=== PATIENT | male | born 1940 | race Caucasian/White ===

== ENCOUNTER 2017-04-05 11:59 | Inpatient (IN) | payer MEDICARE, MEDICAID ==
--- NOTE | 2017-04-05 12:23 | ED Physician Chart ---
ED Chief Complaint/HPI - Patient Information Date Seen:: 04/05/17 Time Seen:: 12:05 Chief Complaint:: lethargy and weakness History of Present Illness:: Patient sent from the detention for generalized weakness and lethargy of an unspecified length of time. Patient denies any problems at present. Patient did not receive his dialysis today. Allergies:: Allergies Allergy/AdvReac Type Severity Reaction Status Date / Time morphine Allergy Verified 04/05/17 12:17 Penicillins [PCN] Allergy Verified 04/05/17 12:17 Historian:: Patient, EMS Review:: Nurse's Note Reviewed ED Review of Systems - Review of Systems General/Constitutional: No fever, No chills Skin: Skin lesions Head: Headache Eyes: No loss of vision ENT: No earache Neck: No neck pain Cardio Vascular: No chest pain Pulmonary: No SOB GI: No nausea, No vomiting, No diarrhea G/U: Other Musculoskeletal: No bone or joint pain (this does not produce urine) Psychiatric: No prior psych history Hematopoietic: No bruising Allergic/Immuno: No urticaria Neurological: No syncope, No focal symptoms ED Past Medical History - Past Medical History Past Medical History: HTN, DM, Thyroid disorder, Other (status post sepsis; ) Family History: None Social History: Non Smoker, No Alcohol, No Drug Use Surgical History: other (bilateral knees and bilateral shoulders) Psychiatricy History: None Medication: Reviewed Family Medical History - Family Member Mother History Unknown: Yes ED Physical Exam - Physical Examination Other Gen/Cons comments:: Chronically ill-appearing; alert and oriented to the correct year and a significant recent current event: the state of the [place] address Head: Atraumatic Eyes: Lids, conjuctiva normal, PERRL Skin: Nl inspection ENMT: External ears, nose nl Other ENMT comments:: Poor dental hygiene Neck: No nuchal rigidity Respiratory: Nl effort/Exclusion, Clear to Auscultation Cardio Vascular: RRR, No murmur, gallop, rubs, NL S1 S2 GI: No tenderness/rebounding/guarding, No organomegaly : No CVA tenderness Extremities: Normal digits & nails Neuro/Psych: No focal deficits ED Labs/Radiology/EKG Results - Lab Results Results: Laboratory Results - last 24 hr 04/05/17 04/05/17 12:40 12:40 WBC 8.1 RBC 2.09 L Hgb 6.4 L* Hct 19.8 L* MCV 94.7 MCH 30.6 MCHC Differential 32.4 RDW 15.3 Plt Count 320 MPV 8.5 Neutrophils % 69.5 Lymphocytes % 20.4 Monocytes % 8.5 Eosinophils % 1.2 Basophils % 0.4 Sodium 134 L Potassium 4.7 Chloride 93 L Carbon Dioxide 27.1 Anion Gap 18.6 H BUN 78 H Creatinine 6.8 H* Est GFR ( Amer) TNP Est GFR (Non-Af Amer) TNP BUN/Creatinine Ratio 11.5 Glucose 119 H Calcium 9.3 Total Bilirubin 0.2 L AST 16 ALT 10 Alkaline Phosphatase 44 Total Protein 6.8 Albumin 3.2 L Globulin 3.6 Albumin/Globulin Ratio 0.9 L - Radiology Results Results: Chest x-ray showed normal size heart with calcification of the aortic arch and atelectasis right base. - EKG Interpretations Rate & Rhythm: normal sinus rhythm rate of 52 [place]: normal ED Septic Shock - . Is Septic Shock (SBP<90, OR Lactate>4 mmol\L) present?: No ED Reassessment (Disposition) - Reassessment Reassessment Condition:: Unchanged - Diagnosis Diagnosis:: Anemia; renal failure on dialysis; - Patient Disposition Admitted to:: Med/Surg Spoke to:: Dr. Ngo Admitting Medical Physician:: Dr. Ngo Condition at Disposition:: Stable, Unchanged
--- NOTE | 2017-04-05 12:39 | Diagnostic Imaging Report ---
Portable chest x-ray HISTORY: Shortness of breath The heart appears enlarged. No focal pulmonary processes. Atherosclerotic calcification seen in a tortuous thoracic aorta. Surgical changes noted about both shoulders. IMPRESSION: 1. No acute focal pulmonary processes 2. Cardiomegaly with atherosclerotic vascular changes
[2017-04-05 12:54] LABS: % BASOPHILS 0.4 % (0.0-2.0); % EOSINOPHILS 1.2 % (0.0-5.0); % LYMPHOCYTES 20.4 % (20.0-50.0); % MONOCYTES 8.5 % (2.0-10.0); % NEUTROPHILS 69.5 % (40.0-80.0); EOSINOPHILE ABSOLUTE 0.1 Th/cmm (0.1-0.4); LYMPHOCYTE ABSOLUTE 1.7 Th/cmm (1.5-3.0); MEAN CELL VOLUME 94.7 fl (80-99); MEAN CORPUSCULAR HEMOGLOBIN 30.6 pg (27.0-31.0); MEAN CORPUSCULAR HGB CONC 32.4 pg (28.0-36.0); MEAN PLATELET VOLUME 8.5 fl; MONOCYTE ABSOLUTE 0.7 Th/cmm (0.3-1.0); NEUTROPHILE ABSOLUTE 5.6 Th/cmm (1.8-8.0); PLATELET COUNT 320 Th/cmm (150-400); RED BLOOD COUNT 2.09 Mil/cmm (3.80-5.80); RED CELL DISTRIBUTION WIDTH 15.3 % (11.5-20.0); WHITE BLOOD COUNT 8.1 Th/cmm (4.8-10.8)
[2017-04-05 12:55] LABS: HEMATOCRIT 19.8 % (41.0-60); HEMOGLOBIN 6.4 gm/dL (12-16)
[2017-04-05 13:00] LABS: ALB/GLOB RATIO 0.9 (1.0-1.8); ALBUMIN 3.2 gm/dL (4.2-5.5); ALKALINE PHOSPHATASE 44 U/L (34-104); ANION GAP 18.6 (7.0-16.0); BILIRUBIN,TOTAL 0.2 mg/dL (0.3-1.0); BUN - UREA NITROGEN 78 mg/dL (7-25); CALCIUM SERUM 9.3 mg/dL (8.6-10.3); CARBON DIOXIDE 27.1 mEq/L (21.0-31.0); CHLORIDE 93 mEq/L (98-107); GLUCOSE 119 mg/dL (70-105); POTASSIUM SERUM 4.7 mEq/L (3.5-5.1); SGOT 16 U/L (13-39); SGPT/ALT 10 U/L (7-52); SODIUM SERUM 134 mEq/L (136-145); TOTAL PROTEIN,SERUM 6.8 gm/dL (6.0-8.3)
[2017-04-05 13:17] LABS: CREATININE - SERUM 6.8 mg/dL (0.7-1.3)
[2017-04-05] MEDS ORDERED: Sodium Chloride 0.9% 500 ML IV ONE ×2 (14:43→14:49)
[2017-04-05] MEDS ORDERED: Morphine Sulfate 2 mg/mL 1mL Syr IVP PRN (15:49)
[2017-04-05] MEDS ORDERED: Sodium Chloride 0.9% 1,000 ML IV SCH (15:49)
[2017-04-06] MEDS: INSULIN ASPART SLIDING SCALE 100 UNITS/ML UNIT SUBQ SCH ×5 (00:38→22:35)
[2017-04-06] MEDS ORDERED: Pneumococcal Vaccine 0.5 mL Vial IM ONE (09:00)
--- NOTE | 2017-04-06 10:19 | Consultation ---
Consult Note - Consult Note Service Date: 04/06/17 Consult Note: PHYSICIAN Consultation Note: Date of Admission: 04/05/17 Purpose of Consultation: Chief Complaint: History of Present Illness: Patient JUANIS MONTESINOS was admitted to [facility] Telemetry with SEVER ANEMIA. 76 YR OLD MALE BIB BLS TRANSPORT FROM [facility] WITH C/O LETHARGY , INCREASED WEAKNESS & FALL 2 DAYS AGO. Patient is ESRD on HD three times per week at [facility] in [place] Past Medical History: HTN, DM type 2, Hyperlipidemia, ESRD, Anemia Past Surgical History: Permcath Allergies Allergy/AdvReac Type Severity Reaction Status Date / Time morphine Allergy Verified 04/05/17 12:17 Penicillins [PCN] Allergy Verified 04/05/17 12:17 Vital Signs Temp 97.4 F 04/06/17 04:00 Pulse 71 04/06/17 08:43 Resp 20 04/06/17 04:00 BP 106/58 04/06/17 08:43 Pulse Ox 97 04/06/17 04:00 Intake & Output 04/05/17 04/06/17 04/06/17 18:59 06:59 18:59 Intake Total 240 800 Balance 240 800 Weight (lbs) 108.862 kg 111.584 kg Intake: Oral 240 200 Blood Product 600 Other: # Voids 1 # Bowel Movements 0 Laboratory Results - last 24 hr 04/05/17 04/06/17 04/06/17 16:26 00:32 07:09 POC Glucose 137 H 117 H Blood Type O POSITIVE Antibody Screen NEGATIVE Crossmatch See Detail Home Medication Medication Instructions Recorded Type Acetaminophen [8 Hour] 650 mg PO Q6H PRN 04/05/17 History Acetaminophen [Tylenol] 650 mg PO Q6HR PRN 04/05/17 History Amlodipine Besylate 10 mg PO DAILY 04/05/17 History Ascorbic Acid [Vitamin C] 500 mg PO BID 04/05/17 History Aspirin [Aspirin Chewable] 81 mg PO DAILY 04/05/17 History Atropine 1% Ophth Soln [Isopto 1 drop RIGHT EYE BID 04/05/17 History Atropine 1% Ophth Soln] Bisacodyl 10 mg RC DAILY 04/05/17 History Budesonide [Pulmicort] 0.5 mg IH Q12H 04/05/17 History Calcium Acetate [Phoslo] 2 tab PO TID 04/05/17 History Carvedilol [Coreg] 25 mg PO Q12H 04/05/17 History Darbepoetin Marvin in Polysorbat 60 mcg IV QWED 04/05/17 History [Aranesp] Dextrose 50% [D50w] 50 ml IV Q4H PRN 04/05/17 History Diphenhydramine HCl/Zinc Acet 1 cre TP Q2H PRN 04/05/17 History [Benadryl 1%-0.1%] Ferrous Gluconate 324 mg PO DAILY 04/05/17 History Finasteride [Proscar] 5 mg PO HS 04/05/17 History Folic Acid/Vit Bcomp,C [Renal 0.8 mg PO HS 04/05/17 History Vitamin Tablet] Gabapentin 100 mg PO DAILY 04/05/17 History Heparin Sodium,Porcine [Heparin 5,000 units SQ Q12H 04/05/17 History Sodium] Hydralazine HCl 100 mg PO Q8H 04/05/17 History Insulin Aspart Sliding Scale 0 units SUBQ ACHS 04/05/17 History [NovoLOG INSULIN SLIDING SCALE] Ipratropium/Albuterol Sulfate 1 vial HHN TID PRN 04/05/17 History [Iprat-Albut 0.5-3(2.5) mg/3 ml] Lactulose 22.5 ml PO BID 04/05/17 History Levothyroxine Sodium 150 mcg PO DAILY 04/05/17 History Lidocaine 5% Patch [Lidoderm 5% 1 patch TP DAILY 04/05/17 History Patch] Modafinil 200 mg PO BID 04/05/17 History Nitroglycerin 0.4 mg SL Q5MIN MDD 3 04/05/17 History Ondansetron [Zofran Odt] 4 mg PO Q6H PRN 04/05/17 History Polyethylene Glycol 3350 [Miralax] 17 gm PO DAILY 04/05/17 History Prednisolone 1% Ophth Susp [Pred 1 drop RIGHT EYE Q6H 04/05/17 History Forte 1% Ophth Susp] Psyllium [Metamucil] 1 pkt PO Q8H PRN 04/05/17 History Tramadol HCl [Ultram] 50 mg PO Q4H PRN 04/05/17 History Current Medications Generic Name Dose Route Start Last Admin Trade Name Freq PRN Reason Stop Dose Admin Acetaminophen 650 mg 04/05/17 22:30 Tylenol PO 06/04/17 22:29 Q6H PRN Pain/Fever >100 F Acetaminophen/Hydrocodone Bitart 1 tab 04/05/17 15:49 [place] 10 Mg/325 Mg PO 06/04/17 15:48 Q6H PRN Pain (Moderate) Amlodipine Besylate 10 mg 04/06/17 09:00 04/06/17 08:42 Norvasc PO 06/05/17 08:59 Not Given DAILY NAZIA Carvedilol 25 mg 04/06/17 09:00 04/06/17 08:43 Coreg PO 06/05/17 08:59 Not Given Q12HR NAZIA Hydralazine HCl 100 mg 04/06/17 05:00 04/06/17 06:32 Apresoline PO 06/05/17 04:59 Not Given Q8HR NAZIA Sodium Chloride 1,000 mls @ 20 mls/hr 04/05/17 15:49 Nacl 0.9% IV 06/04/17 15:48 .Q24H NAZIA Insulin Aspart 0 units 04/05/17 22:23 04/06/17 07:11 Novolog Insulin Sliding Scale SUBQ 06/04/17 22:22 Not Given ACHS NAZIA Protocol Morphine Sulfate 2 mg 04/05/17 15:49 Morphine IVP 06/04/17 15:48 Q4HR PRN Pain (Severe) Nitroglycerin 0.4 mg 04/05/17 22:24 Nitrostat SL 06/04/17 22:23 Q5MIN PRN Chest Pain Ondansetron HCl 4 mg 04/05/17 21:16 Zofran IVP 06/04/17 21:15 Q4H PRN Nausea / Vomiting Review of Systems: A 12 point ROS was reviewed with the pertinent positive and negatives noted in the HPI. Social History Smoking Status Unknown if ever smoked Drug Use No Alcohol Use No Family Medical History Family Medical History Start: 04/05/17 15: 26 Freq: ONCE Status: Active Document 04/05/17 15:26 [email or web address] (Rec: 04/05/17 18:45 [email or web address] [id number]) Family Medical History Mother History Unknown Yes Other Medical History PT ALTERED AT THIS TIME, CONFUSED, OFF TOPIC Physical Exam: General: doing well HEENT: PABLO, EOMI Neck: SUPPLE, No JVD Cardio: S1 S2 RRR Respiratory: CTA bilaterally Abdominal: Soft Obese Non tender Extremities: Trace edema Neurological: Alert and oriented x 3 Assessment: ESRD ANEMIA HTN DM type 2 Plan: continue HD support and transfuse blood anemia work up pending Signed, Seth Devine M.D. [id number]
[2017-04-06 10:37] LABS: % BASOPHILS 0.3 % (0.0-2.0); % EOSINOPHILS 1.8 % (0.0-5.0); % MONOCYTES 7.1 % (2.0-10.0); % NEUTROPHILS 75.8 % (40.0-80.0); EOSINOPHILE ABSOLUTE 0.2 Th/cmm (0.1-0.4); HEMATOCRIT 24.8 % (41.0-60); HEMOGLOBIN 8.1 gm/dL (12-16); LYMPHOCYTE ABSOLUTE 1.4 Th/cmm (1.5-3.0); MEAN CELL VOLUME 91.1 fl (80-99); MEAN CORPUSCULAR HEMOGLOBIN 29.6 pg (27.0-31.0); MEAN CORPUSCULAR HGB CONC 32.5 pg (28.0-36.0); MEAN PLATELET VOLUME 8.2 fl; MONOCYTE ABSOLUTE 0.7 Th/cmm (0.3-1.0); NEUTROPHILE ABSOLUTE 6.9 Th/cmm (1.8-8.0); PLATELET COUNT 371 Th/cmm (150-400); RED BLOOD COUNT 2.72 Mil/cmm (3.80-5.80); RED CELL DISTRIBUTION WIDTH 19.6 % (11.5-20.0); WHITE BLOOD COUNT 9.2 Th/cmm (4.8-10.8)
[2017-04-06 11:46] LABS: ANION GAP 17.3 (7.0-16.0); CALCIUM SERUM 8.9 mg/dL (8.6-10.3); CARBON DIOXIDE 28.7 mEq/L (21.0-31.0); CHLORIDE 93 mEq/L (98-107); GLUCOSE 136 mg/dL (70-105); SODIUM SERUM 134 mEq/L (136-145)
--- NOTE | 2017-04-06 12:15 | History and Physical ---
History of Present Illness - HPI Vital Signs: Last Vital Signs Temp 98 F 04/06/17 08:00 Pulse 71 04/06/17 08:43 Resp 16 04/06/17 08:00 BP 106/58 04/06/17 08:43 Pulse Ox 96 04/06/17 08:00 Family Medical History - Family Member Mother History Unknown: Yes Other Medical History: PT ALTERED AT THIS TIME, CONFUSED, OFF TOPIC - Medications Home Medications: Home Medication Medication Instructions Recorded Type Acetaminophen [8 Hour] 650 mg PO Q6H PRN 04/05/17 History Acetaminophen [Tylenol] 650 mg PO Q6HR PRN 04/05/17 History Amlodipine Besylate 10 mg PO DAILY 04/05/17 History Ascorbic Acid [Vitamin C] 500 mg PO BID 04/05/17 History Aspirin [Aspirin Chewable] 81 mg PO DAILY 04/05/17 History Atropine 1% Ophth Soln [Isopto 1 drop RIGHT EYE BID 04/05/17 History Atropine 1% Ophth Soln] Bisacodyl 10 mg RC DAILY 04/05/17 History Budesonide [Pulmicort] 0.5 mg IH Q12H 04/05/17 History Calcium Acetate [Phoslo] 2 tab PO TID 04/05/17 History Carvedilol [Coreg] 25 mg PO Q12H 04/05/17 History Darbepoetin Marvin in Polysorbat 60 mcg IV QWED 04/05/17 History [Aranesp] Dextrose 50% [D50w] 50 ml IV Q4H PRN 04/05/17 History Diphenhydramine HCl/Zinc Acet 1 cre TP Q2H PRN 04/05/17 History [Benadryl 1%-0.1%] Ferrous Gluconate 324 mg PO DAILY 04/05/17 History Finasteride [Proscar] 5 mg PO HS 04/05/17 History Folic Acid/Vit Bcomp,C [Renal 0.8 mg PO HS 04/05/17 History Vitamin Tablet] Gabapentin 100 mg PO DAILY 04/05/17 History Heparin Sodium,Porcine [Heparin 5,000 units SQ Q12H 04/05/17 History Sodium] Hydralazine HCl 100 mg PO Q8H 04/05/17 History Insulin Aspart Sliding Scale 0 units SUBQ ACHS 04/05/17 History [NovoLOG INSULIN SLIDING SCALE] Ipratropium/Albuterol Sulfate 1 vial HHN TID PRN 04/05/17 History [Iprat-Albut 0.5-3(2.5) mg/3 ml] Lactulose 22.5 ml PO BID 04/05/17 History Levothyroxine Sodium 150 mcg PO DAILY 04/05/17 History Lidocaine 5% Patch [Lidoderm 5% 1 patch TP DAILY 04/05/17 History Patch] Modafinil 200 mg PO BID 04/05/17 History Nitroglycerin 0.4 mg SL Q5MIN MDD 3 04/05/17 History Ondansetron [Zofran Odt] 4 mg PO Q6H PRN 04/05/17 History Polyethylene Glycol 3350 [Miralax] 17 gm PO DAILY 04/05/17 History Prednisolone 1% Ophth Susp [Pred 1 drop RIGHT EYE Q6H 04/05/17 History Forte 1% Ophth Susp] Psyllium [Metamucil] 1 pkt PO Q8H PRN 04/05/17 History Tramadol HCl [Ultram] 50 mg PO Q4H PRN 04/05/17 History - Allergies Allergies/Adverse Reactions: Allergies Allergy/AdvReac Type Severity Reaction Status Date / Time morphine Allergy Verified 04/05/17 12:17 Penicillins [PCN] Allergy Verified 04/05/17 12:17 - Lab Results All Lab Results last 24 hours: Laboratory Results - last 24 hr 04/05/17 04/06/17 04/06/17 16:26 00:32 07:09 WBC RBC Hgb Hct MCV MCH MCHC Differential RDW Plt Count MPV Neutrophils % Lymphocytes % Monocytes % Eosinophils % Basophils % POC Glucose 137 H 117 H Blood Type O POSITIVE Antibody Screen NEGATIVE Crossmatch See Detail 04/06/17 10:30 WBC 9.2 RBC 2.72 L Hgb 8.1 L Hct 24.8 L MCV 91.1 MCH 29.6 MCHC Differential 32.5 RDW 19.6 Plt Count 371 MPV 8.2 Neutrophils % 75.8 Lymphocytes % 15.0 L Monocytes % 7.1 Eosinophils % 1.8 Basophils % 0.3 POC Glucose Blood Type Antibody Screen Crossmatch
[2017-04-06 12:36] LABS: BUN - UREA NITROGEN 91 mg/dL (7-25); CREATININE - SERUM 7.3 mg/dL (0.7-1.3)
--- NOTE | 2017-04-06 16:35 | History & Physical ---
ADMIT DATE: CHIEF COMPLAINT: Low hemoglobin. HISTORY OF PRESENT ILLNESS: A 76-year-old male who presented from [facility] with complaint of lethargy and increased weakness status post mechanical fall 2 days ago. The patient is currently on hemodialysis. The patient was unable to go through hemodialysis yesterday because when he went to hemodialysis, they found his hemoglobin was still low and he was transferred to [facility] for possible anemia of chronic illness versus acute gastrointestinal bleed. The patient's blood pressure was in the high 90s upon arrival and he was given IV fluids and stabilized his blood pressure in the meantime. PAST MEDICAL HISTORY: ____. FAMILY MEDICAL HISTORY: Unremarkable. SOCIAL HISTORY: Denies any history of drug, alcohol or tobacco. MEDICATIONS: Reviewed and reconciled. REVIEW OF SYSTEMS: CONSTITUTIONAL: Denies fevers, chills or sweats. HEENT: Eyes: Denies pain in vision or inflamed conjunctivae. No ear pain or discharge or nose pain. RESPIRATORY: Denies cough, dryness, shortness of breath. CARDIOVASCULAR: Denies chest pain, palpitations or orthopnea. GASTROINTESTINAL: Admits to rectal bleeding. Denies nausea, vomiting or constipation. GENITOURINARY: Denies dysuria, frequency or incontinence. MUSCULOSKELETAL: Denies neck pain, shoulder pain, or arm pain. SKIN: No significant rash, lesions, or jaundice. NEUROLOGIC: No weakness, numbness or incoordination. PHYSICAL EXAMINATION: VITAL SIGNS: Temperature 98 degrees Fahrenheit, pulse 71, respirations 16, blood pressure is 106/58. HEENT: PERRLA, EOMI. NECK: Supple. Trachea midline. CARDIOVASCULAR: Regular rate and rhythm. RESPIRATORY: Decreased breath sounds bilaterally. No wheezing, rales or rhonchi. ABDOMEN: Soft, nontender, nondistended. Bowel sounds positive in all 4 quadrants. BACK: No CVA tenderness. Full range of motion. EXTREMITIES: Negative Homans signs. No open lesions or erythema. SKIN: Warm, dry. No open wounds. NEUROLOGIC: 2-12 intact. LABORATORY DATA: White blood cell count 9.2, hemoglobin 8.1, blood type is O positive. ASSESSMENT AND PLAN: Severe anemia, possibly secondary to acute GI bleed, end-stage renal disease with hemodialysis, hypertension, muscle weakness, unsteady gait, diabetes type 2, hyperlipidemia. Gastroenterology and Nephrology were consulted. His home medications were reviewed and reconciled. Aspirin for ____ prophylaxis, atropine for glaucoma, calcium acetate for elevated phosphate. Continue bronchodilators and steroids or shortness of breath. Stool occult blood. Ferrous sulfate, carvedilol, hydralazine for blood pressure. JOB# [id number]
[2017-04-06] MEDS ORDERED: VTE Chemical Prophylaxis Screen/Admission MC PRN (17:15)
[2017-04-06] MEDS: Budesonide 0.5 Mg/2 mL Ud HHN SCH (19:15)
--- NOTE | 2017-04-07 04:16 | Consultation ---
DATE OF CONSULTATION: 04/06/2017 REASON FOR CONSULTATION: Severe anemia. HISTORY OF PRESENT ILLNESS: This consult was obtained through the request of Dr. Roche for this 76-year-old with history of diabetes, obesity, end-stage renal disease, on hemodialysis; congestive heart failure, presenting to the hospital. Because of severe anemia, hemoglobin was down to 6.4. The patient was sent to the hospital. He denies any GI complaints. There is no nausea, vomiting, diarrhea, constipation, bleeding, unintentional weight loss. On the other hand, also patient has weak vision, so he cannot comment on bleeding, but is not aware of that and there is no abdominal pain. PAST MEDICAL HISTORY: Diabetes, obesity, chronic kidney disease, congestive heart failure. The patient is on hemodialysis. PAST SURGICAL HISTORY: Had bilateral knee surgery, has bilateral shoulder surgery, had shunt related surgery. SOCIAL HISTORY: Denies smoking, alcohol or drugs. FAMILY HISTORY: Negative. ALLERGIES: Morphine and penicillins. MEDICATIONS: The patient is on Tylenol, Norvasc, vitamin C, aspirin, , Dulcolax, Pulmicort, PhosLo, Coreg, Apresoline, NovoLog, Nitrostat, and Zofran. REVIEW OF SYSTEMS: As stated above. No nausea, vomiting, diarrhea, constipation, abdominal pain or active GI bleed. PHYSICAL EXAMINATION: GENERAL: The patient is awake, oriented to self, place, and time, in mild distress. VITAL SIGNS: Blood pressure is 106/58, heart rate 71, respiratory rate 16, temperature is 98.0. HEAD AND NECK: Pupils reactive to light. Extraocular muscles intact. Sclerae anicteric, conjunctivae not pale. Oral cavity, no lesion. NECK: Supple. No jugular venous distention, no carotid bruit or lymph node. CHEST: Good respiratory movements. LUNGS: Showed few rhonchi. CARDIOVASCULAR: Regular rate and rhythm. No murmur or gallop. ABDOMEN: Obese, soft. Positive bowel sounds. EXTREMITIES: Lower extremities, no edema. CENTRAL NERVOUS SYSTEM: The patient is moving 4 extremities. Otherwise, very hard to examine. LABORATORY DATA: Hemoglobin was down to 6.4, now is 8.1. Normal MCV and RDW. IMPRESSION: A 76-year-old with severe anemia, rule out gastrointestinal blood loss due to peptic ulcer disease, upper GI malignancy, colon cancer, etc. RECOMMENDATIONS: 1. Monitor H and H. 2. Transfuse as needed. 3. EGD and colonoscopy in the morning. 4. Further recommendations to follow depending on the above. Other medical problems consists of diabetes, congestive heart failure and seizure disease, etc. as per Dr. Roche. Thank you, Dr. Roche for allowing me to participate in the care of the patient. If you have any further questions, please let me know. JOB# [id number]
[2017-04-07] MEDS: INSULIN ASPART SLIDING SCALE 100 UNITS/ML UNIT SUBQ SCH ×4 (06:37→21:59)
[2017-04-07] MEDS: Budesonide 0.5 Mg/2 mL Ud HHN SCH ×2 (06:53→19:30)
--- NOTE | 2017-04-07 07:12 | General Progress Note ---
Subjective - Review of Systems Service Date: 04/07/17 Subjective: planned for EGD colonoscopy and HD today Objective - Results Result Diagrams: 04/06/17 10:30 04/06/17 10:30 Recent Labs: Laboratory Last Values WBC 9.2 Th/cmm (4.8-10.8) 04/06/17 10:30 RBC 2.72 Mil/cmm (3.80-5.80) L 04/06/17 10:30 Hgb 8.1 gm/dL (12-16) L 04/06/17 10:30 Hct 24.8 % (41.0-60) L 04/06/17 10:30 MCV 91.1 fl (80-99) 04/06/17 10:30 MCH 29.6 pg (27.0-31.0) 04/06/17 10:30 MCHC Differential 32.5 pg (28.0-36.0) 04/06/17 10:30 RDW 19.6 % (11.5-20.0) 04/06/17 10:30 Plt Count 371 Th/cmm (150-400) 04/06/17 10:30 MPV 8.2 fl 04/06/17 10:30 Neutrophils % 75.8 % (40.0-80.0) 04/06/17 10:30 Lymphocytes % 15.0 % (20.0-50.0) L 04/06/17 10:30 Monocytes % 7.1 % (2.0-10.0) 04/06/17 10:30 Eosinophils % 1.8 % (0.0-5.0) 04/06/17 10:30 Basophils % 0.3 % (0.0-2.0) 04/06/17 10:30 Sodium 134 mEq/L (136-145) L 04/06/17 10:30 Potassium 5.0 mEq/L (3.5-5.1) 04/06/17 10:30 Chloride 93 mEq/L (98-107) L 04/06/17 10:30 Carbon Dioxide 28.7 mEq/L (21.0-31.0) 04/06/17 10:30 Anion Gap 17.3 (7.0-16.0) H 04/06/17 10:30 BUN 91 mg/dL (7-25) H* 04/06/17 10:30 Creatinine 7.3 mg/dL (0.7-1.3) H* 04/06/17 10:30 Est GFR ( Amer) TNP 04/06/17 10:30 Est GFR (Non-Af Amer) TNP 04/06/17 10:30 BUN/Creatinine Ratio 12.5 04/06/17 10:30 Glucose 136 mg/dL (70-105) H 04/06/17 10:30 POC Glucose 123 MG/DL (70 - 105) H 04/07/17 06:33 Calcium 8.9 mg/dL (8.6-10.3) 04/06/17 10:30 Total Bilirubin 0.2 mg/dL (0.3-1.0) L 04/05/17 12:40 AST 16 U/L (13-39) 04/05/17 12:40 ALT 10 U/L (7-52) 04/05/17 12:40 Alkaline Phosphatase 44 U/L (34-104) 04/05/17 12:40 Total Protein 6.8 gm/dL (6.0-8.3) 04/05/17 12:40 Albumin 3.2 gm/dL (4.2-5.5) L 04/05/17 12:40 Globulin 3.6 gm/dL 04/05/17 12:40 Albumin/Globulin Ratio 0.9 (1.0-1.8) L 04/05/17 12:40 Blood Type O POSITIVE 04/05/17 16:26 Antibody Screen NEGATIVE 04/05/17 16:26 Crossmatch See Detail 04/05/17 16:26 - Physical Exam Vitals and I&O: Vital Signs Temp 98.5 F 04/07/17 04:00 Pulse 83 04/07/17 06:53 Resp 20 04/07/17 06:53 BP 108/57 04/07/17 06:27 Pulse Ox 93 04/07/17 06:53 Intake & Output 04/06/17 04/07/17 04/07/17 18:59 06:59 18:59 Intake Total 750 Balance 750 Weight (lbs) 113.806 kg Intake: Oral 500 Blood Product 250 Other: # Voids 3 # Bowel Movements 0 Active Medications: Current Medications Acetaminophen (Tylenol) 650 mg PO Q6H PRN PRN Reason: Pain/Fever >100 F Stop: 06/04/17 22:29 Acetaminophen/Hydrocodone Bitart ([place] 10 Mg/325 Mg) 1 tab PO Q6H PRN PRN Reason: Pain (Moderate) Stop: 06/04/17 15:48 Amlodipine Besylate (Norvasc) 10 mg PO DAILY [facility] Stop: 06/05/17 08:59 Last Admin: 04/06/17 08:42 Dose: Not Given Ascorbic Acid (Vitamin C) 500 mg PO BID [facility] Stop: 06/05/17 16:59 Last Admin: 04/06/17 16:48 Dose: 500 mg Aspirin (Aspirin Chewable) 81 mg PO DAILY [facility] Stop: 06/06/17 08:59 Atropine Sulfate (Isopto Atropine 1% [facility]) 1 drop RIGHT EYE BID [facility] Stop: 06/05/17 16:59 Last Admin: 04/06/17 16:48 Dose: 1 drop Bisacodyl (Dulcolax 10 Mg Supp) 10 mg RC DAILY [facility] Stop: 06/06/17 08:59 Budesonide (Pulmicort) 0.5 mg HHN Q12HRT [facility] Stop: 06/05/17 12:29 Last Admin: 04/07/17 06:53 Dose: 0.5 mg Calcium Acetate (Phoslo) 1,334 mg PO TIDWM [facility] Stop: 06/05/17 16:59 Last Admin: 04/06/17 16:48 Dose: 1,334 mg Carvedilol (Coreg) 25 mg PO Q12HR [facility] Stop: 06/05/17 08:59 Last Admin: 04/06/17 22:19 Dose: 25 mg Hydralazine HCl (Apresoline) 100 mg PO Q8HR [facility] Stop: 06/05/17 04:59 Last Admin: 04/07/17 06:27 Dose: Not Given Insulin Aspart (Novolog Insulin Sliding Scale) 0 units SUBQ ACHS NAZIA PRN Reason: Protocol Stop: 06/04/17 22:22 Last Admin: 04/07/17 06:37 Dose: Not Given Miscellaneous (Vte Chemical Prophylaxis Screen/ Admission) 1 ea MC PRN PRN PRN Reason: PROTOCOL Stop: 06/05/17 17:14 Morphine Sulfate (Morphine) 2 mg IVP Q4HR PRN PRN Reason: Pain (Severe) Stop: 06/04/17 15:48 Nitroglycerin (Nitrostat) 0.4 mg SL Q5MIN PRN PRN Reason: Chest Pain Stop: 06/04/17 22:23 Ondansetron HCl (Zofran) 4 mg IVP Q4H PRN PRN Reason: Nausea / Vomiting Stop: 06/04/17 21:15 General: Alert HEENT: Atraumatic, PERRLA Neck: Supple Cardiovascular: Regular rate, Normal S1, Normal S2 Lungs: Clear to auscultation Abdomen: Bowel sounds, Soft Assessment/Plan - Assessment Assessment: SEVERE ANEMIA ESRD HTN DM HYPERLIPIDEMIA - Plan Plan: CONTINUE HD SUPPORT WILL MONITOR ELECTROLYTES
[2017-04-07] MEDS ORDERED: Propofol 10 mg/mL 20mL Vial **SURGERY USE ONLY IV ONE (09:06)
[2017-04-07] MEDS ORDERED: Meperidine 25 mg/mL 1mL Syr ONE (09:25)
[2017-04-07] MEDS: Aspirin 81mg Chewable Tab PO SCH (10:15)
[2017-04-07 12:03] LABS: % BASOPHILS 0.4 % (0.0-2.0); % LYMPHOCYTES 16.9 % (20.0-50.0); % MONOCYTES 10.4 % (2.0-10.0); % NEUTROPHILS 71.3 % (40.0-80.0); EOSINOPHILE ABSOLUTE 0.1 Th/cmm (0.1-0.4); LYMPHOCYTE ABSOLUTE 1.5 Th/cmm (1.5-3.0); MEAN CORPUSCULAR HEMOGLOBIN 29.8 pg (27.0-31.0); MEAN CORPUSCULAR HGB CONC 32.7 pg (28.0-36.0); MEAN PLATELET VOLUME 8.6 fl; MONOCYTE ABSOLUTE 0.9 Th/cmm (0.3-1.0); NEUTROPHILE ABSOLUTE 6.2 Th/cmm (1.8-8.0); PLATELET COUNT 354 Th/cmm (150-400); RED BLOOD COUNT 2.61 Mil/cmm (3.80-5.80); RED CELL DISTRIBUTION WIDTH 19.2 % (11.5-20.0); WHITE BLOOD COUNT 8.7 Th/cmm (4.8-10.8)
[2017-04-07 12:10] LABS: HEMOGLOBIN 7.8 gm/dL (12-16)
[2017-04-07 12:11] LABS: HEMATOCRIT 23.8 % (41.0-60)
[2017-04-07 12:15] LABS: ANION GAP 19.5 (7.0-16.0); CALCIUM SERUM 8.5 mg/dL (8.6-10.3); CARBON DIOXIDE 26.5 mEq/L (21.0-31.0); CHLORIDE 97 mEq/L (98-107); GLUCOSE 126 mg/dL (70-105); SODIUM SERUM 138 mEq/L (136-145)
[2017-04-07 12:27] LABS: BUN - UREA NITROGEN 99 mg/dL (7-25); CREATININE - SERUM 7.9 mg/dL (0.7-1.3)
[2017-04-07 12:29] LABS: PROTHROMBIN TIME (TEST) 10.4 SECONDS (9.5-11.5)
--- NOTE | 2017-04-07 15:31 | Operative Report ---
DATE OF SURGERY: 04/07/2017 INPATIENT GASTROINTESTINAL PROCEDURE PROCEDURE: EGD with biopsy, colonoscopy with biopsy. REFERRING PHYSICIAN: Surya Roche DO REASON FOR PROCEDURE: Severe anemia. CONSENT: Risks, benefits, alternatives, nature, indication, possible outcomes were discussed. Mentioned bleeding, infection, perforation, , disability, cardiopulmonary distress, and arrest, missed lesions and cancers, need for surgery. The patient expressed understanding and provided informed consent. PREOPERATIVE DIAGNOSIS: Severe anemia. POSTOPERATIVE DIAGNOSES: Duodenitis, gastritis, colon polyp, sigmoid diverticulosis. MEDICATIONS: MAC provided by anesthesiologist. DESCRIPTION OF PROCEDURE: The patient was placed in left side. Upper endoscope advanced from the mouth and second portion of duodenum. Scope was brought back into in the stomach. Retroflexion view of fundus, cardia, lesser curvature. Scope was straightened. Biopsies were taken. Scope was then removed. COMPLICATIONS: None. FINDINGS: 1. GE junction at 44 cm with a normal esophagus. 2. Antral gastritis, status post biopsy. 3. Duodenitis, status post biopsy. PROCEDURE: Colonoscopy. DESCRIPTION OF PROCEDURE: The patient was placed in left side. Rectal exam was performed and was normal. Colonoscope was advanced from the anus to the cecum confirmed by appendiceal orifice and ileocecal valve. Scope slowly withdrawn, examining the mucosa along the way. Prep quality was good. Polyps seen in the sigmoid removed by forceps. Once in the rectum, retroflexion was performed, scope was straightened and removed along with air. COMPLICATIONS: None. FINDINGS: 1. Few sigmoid diverticulosis. 2. A 2 mm sigmoid polyp removed by forceps. RECOMMENDATIONS: 1. Provide the patient with Protonix. 2. Follow up on biopsy. 3. Repeat colonoscopy in 5 years. 4. Consider heme evaluation for anemia workup. Thank you for allowing me to participate. Please call me if any questions. JOB# [id number]
[2017-04-08] MEDS: INSULIN ASPART SLIDING SCALE 100 UNITS/ML UNIT SUBQ SCH ×4 (06:34→21:13)
[2017-04-08 06:50] LABS: % BASOPHILS 0.4 % (0.0-2.0); % LYMPHOCYTES 21.3 % (20.0-50.0); % MONOCYTES 12.3 % (2.0-10.0); EOSINOPHILE ABSOLUTE 0.1 Th/cmm (0.1-0.4); HEMATOCRIT 24.1 % (41.0-60); LYMPHOCYTE ABSOLUTE 1.7 Th/cmm (1.5-3.0); MEAN CELL VOLUME 91.2 fl (80-99); MEAN CORPUSCULAR HEMOGLOBIN 29.4 pg (27.0-31.0); MEAN CORPUSCULAR HGB CONC 32.2 pg (28.0-36.0); MEAN PLATELET VOLUME 8.8 fl; PLATELET COUNT 369 Th/cmm (150-400); RED BLOOD COUNT 2.64 Mil/cmm (3.80-5.80); RED CELL DISTRIBUTION WIDTH 18.3 % (11.5-20.0); WHITE BLOOD COUNT 7.8 Th/cmm (4.8-10.8)
[2017-04-08 07:08] LABS: HEMOGLOBIN 7.8 gm/dL (12-16)
[2017-04-08] MEDS: Budesonide 0.5 Mg/2 mL Ud HHN SCH ×2 (07:42→19:11)
--- NOTE | 2017-04-08 08:40 | GI Progress Note ---
Subjective - Review of Systems Subjective: DENIES GI BLEEDING OR ABD PAIN Objective - Results Result Diagrams: 04/08/17 06:05 04/07/17 11:46 Recent Labs: Laboratory Last Values WBC 7.8 Th/cmm (4.8-10.8) 04/08/17 06:05 RBC 2.64 Mil/cmm (3.80-5.80) L 04/08/17 06:05 Hgb 7.8 gm/dL (12-16) L* 04/08/17 06:05 Hct 24.1 % (41.0-60) L 04/08/17 06:05 MCV 91.2 fl (80-99) 04/08/17 06:05 MCH 29.4 pg (27.0-31.0) 04/08/17 06:05 MCHC Differential 32.2 pg (28.0-36.0) 04/08/17 06:05 RDW 18.3 % (11.5-20.0) 04/08/17 06:05 Plt Count 369 Th/cmm (150-400) 04/08/17 06:05 MPV 8.8 fl 04/08/17 06:05 Neutrophils % 65.0 % (40.0-80.0) 04/08/17 06:05 Lymphocytes % 21.3 % (20.0-50.0) 04/08/17 06:05 Monocytes % 12.3 % (2.0-10.0) H 04/08/17 06:05 Eosinophils % 1.0 % (0.0-5.0) 04/08/17 06:05 Basophils % 0.4 % (0.0-2.0) 04/08/17 06:05 PT 10.4 SECONDS (9.5-11.5) 04/07/17 11:46 INR 1.00 (0.5-1.4) 04/07/17 11:46 PTT (Actin FS) 33.0 SECONDS (26.0-38.0) 04/07/17 11:46 Sodium 138 mEq/L (136-145) 04/07/17 11:46 Potassium 5.0 mEq/L (3.5-5.1) 04/07/17 11:46 Chloride 97 mEq/L (98-107) L 04/07/17 11:46 Carbon Dioxide 26.5 mEq/L (21.0-31.0) 04/07/17 11:46 Anion Gap 19.5 (7.0-16.0) H 04/07/17 11:46 BUN 99 mg/dL (7-25) H* 04/07/17 11:46 Creatinine 7.9 mg/dL (0.7-1.3) H* 04/07/17 11:46 Est GFR ( Amer) TNP 04/07/17 11:46 Est GFR (Non-Af Amer) TNP 04/07/17 11:46 BUN/Creatinine Ratio 12.5 04/07/17 11:46 Glucose 126 mg/dL (70-105) H 04/07/17 11:46 POC Glucose 91 MG/DL (70 - 105) 04/08/17 06:33 Calcium 8.5 mg/dL (8.6-10.3) L 04/07/17 11:46 Total Bilirubin 0.2 mg/dL (0.3-1.0) L 04/05/17 12:40 AST 16 U/L (13-39) 04/05/17 12:40 ALT 10 U/L (7-52) 04/05/17 12:40 Alkaline Phosphatase 44 U/L (34-104) 04/05/17 12:40 Total Protein 6.8 gm/dL (6.0-8.3) 04/05/17 12:40 Albumin 3.2 gm/dL (4.2-5.5) L 04/05/17 12:40 Globulin 3.6 gm/dL 04/05/17 12:40 Albumin/Globulin Ratio 0.9 (1.0-1.8) L 04/05/17 12:40 Blood Type O POSITIVE 04/05/17 16:26 Antibody Screen NEGATIVE 04/05/17 16:26 Crossmatch See Detail 04/05/17 16:26 - Physical Exam Vitals and I&O: Vital Signs Temp 99.1 F 04/08/17 04:00 Pulse 92 04/08/17 07:43 Resp 18 04/08/17 07:43 BP 104/53 04/08/17 06:23 Pulse Ox 96 04/08/17 07:43 Intake & Output 04/07/17 04/08/17 04/08/17 18:59 06:59 18:59 Intake Total 4150 200 Output Total 2600 Balance 1550 200 Weight (lbs) 113.398 kg 113.398 kg Intake: Oral 4150 200 Output: Hemodialysis 2600 Other: # Voids 1 1 # Bowel Movements 3 0 Stool Characteristics Soft Active Medications: Current Medications Acetaminophen (Tylenol) 650 mg PO Q6H PRN PRN Reason: Pain/Fever >100 F Stop: 06/04/17 22:29 Last Admin: 04/08/17 07:39 Dose: 650 mg Acetaminophen/Hydrocodone Bitart ([place] 10 Mg/325 Mg) 1 tab PO Q6H PRN PRN Reason: Pain (Moderate) Stop: 06/04/17 15:48 Amlodipine Besylate (Norvasc) 10 mg PO DAILY [facility] Stop: 06/05/17 08:59 Last Admin: 04/07/17 10:14 Dose: Not Given Ascorbic Acid (Vitamin C) 500 mg PO BID [facility] Stop: 06/05/17 16:59 Last Admin: 04/07/17 17:14 Dose: Not Given Aspirin (Aspirin Chewable) 81 mg PO DAILY [facility] Stop: 06/06/17 08:59 Last Admin: 04/07/17 10:15 Dose: Not Given Atropine Sulfate (Isopto Atropine 1% Oph Soln) 1 drop RIGHT EYE BID [facility] Stop: 06/05/17 16:59 Last Admin: 04/07/17 19:53 Dose: Not Given Bisacodyl (Dulcolax 10 Mg Supp) 10 mg RC DAILY [facility] Stop: 06/06/17 08:59 Last Admin: 04/07/17 10:15 Dose: Not Given Budesonide (Pulmicort) 0.5 mg HHN Q12HRT [facility] Stop: 06/05/17 12:29 Last Admin: 04/08/17 07:42 Dose: 0.5 mg Calcium Acetate (Phoslo) 1,334 mg PO TIDWM [facility] Stop: 06/05/17 16:59 Last Admin: 04/08/17 07:39 Dose: 1,334 mg Carvedilol (Coreg) 25 mg PO Q12HR [facility] Stop: 06/05/17 08:59 Last Admin: 04/07/17 23:55 Dose: 25 mg Hydralazine HCl (Apresoline) 100 mg PO Q8HR [facility] Stop: 06/05/17 04:59 Last Admin: 04/08/17 06:23 Dose: Not Given Insulin Aspart (Novolog Insulin Sliding Scale) 0 units SUBQ ACHS [facility] PRN Reason: Protocol Stop: 06/04/17 22:22 Last Admin: 04/08/17 06:34 Dose: Not Given Miscellaneous (Vte Chemical Prophylaxis Screen/ Admission) 1 ea [facility] PRN PRN PRN Reason: PROTOCOL Stop: 06/05/17 17:14 Nitroglycerin (Nitrostat) 0.4 mg SL Q5MIN PRN PRN Reason: Chest Pain Stop: 06/04/17 22:23 Ondansetron HCl (Zofran) 4 mg IVP Q4H PRN PRN Reason: Nausea / Vomiting Stop: 06/04/17 21:15 General: Alert HEENT: Atraumatic, PERRLA Neck: Supple Cardiovascular: Regular rate, Normal S1, Normal S2 Lungs: Clear to auscultation Abdomen: Bowel sounds, Soft Assessment/Plan - Assessment Assessment: 76 YO MALE WITH ANEMIA EGD SHOWED GASTRITIS AND DUODENITIS COLO SHOWED POLYP AND DIVERTICULOSIS HGB STABLE 1.FOLLOW H/H 2.PROTONIX 3.AWAIT BX 4.REPEAT COLO IN 5 YRS 5.CHECK IRON PANEL
[2017-04-08] MEDS: Aspirin 81mg Chewable Tab PO SCH (09:27)
[2017-04-08] MEDS: Hydrocodone/APAP 10 mg/325 mg Tab PO PRN (09:31)
--- NOTE | 2017-04-08 16:08 | General Progress Note ---
Subjective - Review of Systems Service Date: 04/08/17 Subjective: patient seen and examined Objective - Results Result Diagrams: 04/08/17 06:05 04/07/17 11:46 Recent Labs: Laboratory Last Values WBC 7.8 Th/cmm (4.8-10.8) 04/08/17 06:05 RBC 2.64 Mil/cmm (3.80-5.80) L 04/08/17 06:05 Hgb 7.8 gm/dL (12-16) L* 04/08/17 06:05 Hct 24.1 % (41.0-60) L 04/08/17 06:05 MCV 91.2 fl (80-99) 04/08/17 06:05 MCH 29.4 pg (27.0-31.0) 04/08/17 06:05 MCHC Differential 32.2 pg (28.0-36.0) 04/08/17 06:05 RDW 18.3 % (11.5-20.0) 04/08/17 06:05 Plt Count 369 Th/cmm (150-400) 04/08/17 06:05 MPV 8.8 fl 04/08/17 06:05 Neutrophils % 65.0 % (40.0-80.0) 04/08/17 06:05 Lymphocytes % 21.3 % (20.0-50.0) 04/08/17 06:05 Monocytes % 12.3 % (2.0-10.0) H 04/08/17 06:05 Eosinophils % 1.0 % (0.0-5.0) 04/08/17 06:05 Basophils % 0.4 % (0.0-2.0) 04/08/17 06:05 PT 10.4 SECONDS (9.5-11.5) 04/07/17 11:46 INR 1.00 (0.5-1.4) 04/07/17 11:46 PTT (Actin FS) 33.0 SECONDS (26.0-38.0) 04/07/17 11:46 Sodium 138 mEq/L (136-145) 04/07/17 11:46 Potassium 5.0 mEq/L (3.5-5.1) 04/07/17 11:46 Chloride 97 mEq/L (98-107) L 04/07/17 11:46 Carbon Dioxide 26.5 mEq/L (21.0-31.0) 04/07/17 11:46 Anion Gap 19.5 (7.0-16.0) H 04/07/17 11:46 BUN 99 mg/dL (7-25) H* 04/07/17 11:46 Creatinine 7.9 mg/dL (0.7-1.3) H* 04/07/17 11:46 Est GFR ( Amer) TNP 04/07/17 11:46 Est GFR (Non-Af Amer) TNP 04/07/17 11:46 BUN/Creatinine Ratio 12.5 04/07/17 11:46 Glucose 126 mg/dL (70-105) H 04/07/17 11:46 POC Glucose 160 MG/DL (70 - 105) H 04/08/17 11:41 Calcium 8.5 mg/dL (8.6-10.3) L 04/07/17 11:46 Total Bilirubin 0.2 mg/dL (0.3-1.0) L 04/05/17 12:40 AST 16 U/L (13-39) 04/05/17 12:40 ALT 10 U/L (7-52) 04/05/17 12:40 Alkaline Phosphatase 44 U/L (34-104) 04/05/17 12:40 Total Protein 6.8 gm/dL (6.0-8.3) 04/05/17 12:40 Albumin 3.2 gm/dL (4.2-5.5) L 04/05/17 12:40 Globulin 3.6 gm/dL 04/05/17 12:40 Albumin/Globulin Ratio 0.9 (1.0-1.8) L 04/05/17 12:40 Stool Occult Blood POSITIVE (NEGATIVE) H 04/08/17 10:45 Blood Type O POSITIVE 04/05/17 16:26 Antibody Screen NEGATIVE 04/05/17 16:26 Crossmatch See Detail 04/05/17 16:26 - Physical Exam Vitals and I&O: Vital Signs Temp 99.2 F 04/08/17 12:00 Pulse 81 04/08/17 12:18 Resp 20 04/08/17 13:00 BP 95/47 04/08/17 12:18 Pulse Ox 97 04/08/17 12:00 Intake & Output 04/07/17 04/08/17 04/08/17 18:59 06:59 18:59 Intake Total 4150 200 Output Total 2600 Balance 1550 200 Weight (lbs) 113.398 kg 113.398 kg Intake: Oral 4150 200 Output: Hemodialysis 2600 Other: # Voids 1 1 # Bowel Movements 3 0 Stool Characteristics Soft Soft Active Medications: Current Medications Acetaminophen (Tylenol) 650 mg PO Q6H PRN PRN Reason: Pain/Fever >100 F Stop: 06/04/17 22:29 Last Admin: 04/08/17 07:39 Dose: 650 mg Acetaminophen/Hydrocodone Bitart ([place] 10 Mg/325 Mg) 1 tab PO Q6H PRN PRN Reason: Pain (Moderate) Stop: 06/04/17 15:48 Last Admin: 04/08/17 09:31 Dose: 1 tab Amlodipine Besylate (Norvasc) 10 mg PO DAILY [facility] Stop: 06/05/17 08:59 Last Admin: 04/08/17 09:27 Dose: Not Given Ascorbic Acid (Vitamin C) 500 mg PO BID [facility] Stop: 06/05/17 16:59 Last Admin: 04/08/17 09:27 Dose: 500 mg Aspirin (Aspirin Chewable) 81 mg PO DAILY [facility] Stop: 06/06/17 08:59 Last Admin: 04/08/17 09:27 Dose: 81 mg Atropine Sulfate (Isopto Atropine 1% Ophth Soln) 1 drop RIGHT EYE BID [facility] Stop: 06/05/17 16:59 Last Admin: 04/08/17 09:26 Dose: 1 drop Bisacodyl (Dulcolax 10 Mg Supp) 10 mg RC DAILY [facility] Stop: 06/06/17 08:59 Last Admin: 04/08/17 09:26 Dose: 10 mg Budesonide (Pulmicort) 0.5 mg HHN Q12HRT [facility] Stop: 06/05/17 12:29 Last Admin: 04/08/17 07:42 Dose: 0.5 mg Calcium Acetate (Phoslo) 1,334 mg PO TIDWM [facility] Stop: 06/05/17 16:59 Last Admin: 04/08/17 12:17 Dose: 1,334 mg Carvedilol (Coreg) 25 mg PO Q12HR [facility] Stop: 06/05/17 08:59 Last Admin: 04/08/17 09:27 Dose: Not Given Hydralazine HCl (Apresoline) 100 mg PO Q8HR [facility] Stop: 06/05/17 04:59 Last Admin: 04/08/17 12:18 Dose: Not Given Insulin Aspart (Novolog Insulin Sliding Scale) 0 units SUBQ ACHS [facility] PRN Reason: Protocol Stop: 06/04/17 22:22 Last Admin: 04/08/17 12:12 Dose: 2 units Miscellaneous (Vte Chemical Prophylaxis Screen/ Admission) 1 ea [facility] PRN PRN PRN Reason: PROTOCOL Stop: 06/05/17 17:14 Nitroglycerin (Nitrostat) 0.4 mg SL Q5MIN PRN PRN Reason: Chest Pain Stop: 06/04/17 22:23 Ondansetron HCl (Zofran) 4 mg IVP Q4H PRN PRN Reason: Nausea / Vomiting Stop: 06/04/17 21:15 General: Alert HEENT: Atraumatic, PERRLA Neck: Supple Cardiovascular: Regular rate, Normal S1, Normal S2 Lungs: Clear to auscultation Abdomen: Bowel sounds, Soft Assessment/Plan - Assessment Assessment: SEVERE ANEMIA ESRD HTN DM HYPERLIPIDEMIA - Plan Plan: CONTINUE HD SUPPORT WILL MONITOR ELECTROLYTES
[2017-04-09 06:33] LABS: % BASOPHILS 0.6 % (0.0-2.0); % EOSINOPHILS 3.4 % (0.0-5.0); % LYMPHOCYTES 23.7 % (20.0-50.0); % MONOCYTES 10.6 % (2.0-10.0); % NEUTROPHILS 61.7 % (40.0-80.0); BASOPHILE ABSOLUTE 0.1 Th/cumm (0-0.2); EOSINOPHILE ABSOLUTE 0.4 Th/cmm (0.1-0.4); HEMATOCRIT 24.5 % (41.0-60); HEMOGLOBIN 8.2 gm/dL (12-16); LYMPHOCYTE ABSOLUTE 2.5 Th/cmm (1.5-3.0); MEAN CELL VOLUME 90.4 fl (80-99); MEAN CORPUSCULAR HEMOGLOBIN 30.5 pg (27.0-31.0); MEAN CORPUSCULAR HGB CONC 33.7 pg (28.0-36.0); MEAN PLATELET VOLUME 8.8 fl; MONOCYTE ABSOLUTE 1.1 Th/cmm (0.3-1.0); NEUTROPHILE ABSOLUTE 6.6 Th/cmm (1.8-8.0); PLATELET COUNT 439 Th/cmm (150-400); RED CELL DISTRIBUTION WIDTH 18.5 % (11.5-20.0)
[2017-04-09] MEDS: INSULIN ASPART SLIDING SCALE 100 UNITS/ML UNIT SUBQ SCH ×3 (06:42→21:39)
[2017-04-09 06:44] LABS: WHITE BLOOD COUNT 10.7 Th/cmm (4.8-10.8)
[2017-04-09] MEDS: Budesonide 0.5 Mg/2 mL Ud HHN SCH ×2 (07:52→18:35)
[2017-04-09] MEDS: Aspirin 81mg Chewable Tab PO SCH (08:46)
[2017-04-09] MEDS: Hydrocodone/APAP 10 mg/325 mg Tab PO PRN (08:53)
--- NOTE | 2017-04-09 10:06 | Progress Notes ---
DATE: SUBJECTIVE: The patient is lying comfortably in bed, complains of intermittent shortness of breath. The patient will undergo EGD and/or colonoscopy per Gastroenterology today. The patient will undergo hemodialysis. Hemoglobin is at 7.8, one more unit of packed red blood cells will be given with the patient at dialysis. OBJECTIVE: VITAL SIGNS: Heart rate 83, respirations 20, blood pressure 116/80, and temperature 97 degrees. GENERAL: NAD. HEENT: PERRLA, EOMI. NECK: Supple. Trachea midline. CARDIOVASCULAR: Regular rate and rhythm. RESPIRATORY: Decreased breath sounds with intermittent wheezing. ABDOMEN: Soft, nontender, nondistended. Bowel sounds present in all 4 quadrants. SKIN: Warm and dry. Chronic venous stasis changes. MUSCULOSKELETAL: Muscle strength testing in bilateral upper and lower extremities is 4/5. LABORATORY DATA: Hemoglobin 7.8. ASSESSMENT: Severe anemia, possibly secondary to acute gastrointestinal bleed; end-stage renal disease with hemodialysis; hypertension; muscle weakness; unsteady gait; diabetes; and hyperlipidemia. PLAN: Gastroenterology and Nephrology are consulted. One unit of packed red blood cells to be given with dialysis today. Continue his home medications, ferrous sulfate due to low . JOB# [id number]
[2017-04-09 11:31] LABS: ANION GAP 21.4 (7.0-16.0); BUN - UREA NITROGEN 78 mg/dL (7-25); CALCIUM SERUM 9.2 mg/dL (8.6-10.3); CARBON DIOXIDE 25.2 mEq/L (21.0-31.0); CHLORIDE 95 mEq/L (98-107); GLUCOSE 92 mg/dL (70-105); POTASSIUM SERUM 4.6 mEq/L (3.5-5.1); SODIUM SERUM 137 mEq/L (136-145)
[2017-04-09 11:38] LABS: CREATININE - SERUM 7.8 mg/dL (0.7-1.3)
--- NOTE | 2017-04-09 13:33 | General Progress Note ---
Subjective - Review of Systems Service Date: 04/09/17 Subjective: patient seen and examined Objective - Results Result Diagrams: 04/09/17 06:00 04/09/17 06:00 Recent Labs: Laboratory Last Values WBC 10.7 Th/cmm (4.8-10.8) D 04/09/17 06:00 RBC 2.70 Mil/cmm (3.80-5.80) L 04/09/17 06:00 Hgb 8.2 gm/dL (12-16) L 04/09/17 06:00 Hct 24.5 % (41.0-60) L 04/09/17 06:00 MCV 90.4 fl (80-99) 04/09/17 06:00 MCH 30.5 pg (27.0-31.0) 04/09/17 06:00 MCHC Differential 33.7 pg (28.0-36.0) 04/09/17 06:00 RDW 18.5 % (11.5-20.0) 04/09/17 06:00 Plt Count 439 Th/cmm (150-400) H 04/09/17 06:00 MPV 8.8 fl 04/09/17 06:00 Neutrophils % 61.7 % (40.0-80.0) 04/09/17 06:00 Lymphocytes % 23.7 % (20.0-50.0) 04/09/17 06:00 Monocytes % 10.6 % (2.0-10.0) H 04/09/17 06:00 Eosinophils % 3.4 % (0.0-5.0) 04/09/17 06:00 Basophils % 0.6 % (0.0-2.0) 04/09/17 06:00 PT 10.4 SECONDS (9.5-11.5) 04/07/17 11:46 INR 1.00 (0.5-1.4) 04/07/17 11:46 PTT (Actin FS) 33.0 SECONDS (26.0-38.0) 04/07/17 11:46 Sodium 137 mEq/L (136-145) 04/09/17 06:00 Potassium 4.6 mEq/L (3.5-5.1) 04/09/17 06:00 Chloride 95 mEq/L (98-107) L 04/09/17 06:00 Carbon Dioxide 25.2 mEq/L (21.0-31.0) 04/09/17 06:00 Anion Gap 21.4 (7.0-16.0) H 04/09/17 06:00 BUN 78 mg/dL (7-25) H 04/09/17 06:00 Creatinine 7.8 mg/dL (0.7-1.3) H* 04/09/17 06:00 Est GFR ( Amer) TNP 04/09/17 06:00 Est GFR (Non-Af Amer) TNP 04/09/17 06:00 BUN/Creatinine Ratio 10.0 04/09/17 06:00 Glucose 92 mg/dL (70-105) 04/09/17 06:00 POC Glucose 142 MG/DL (70 - 105) H 04/09/17 11:02 Calcium 9.2 mg/dL (8.6-10.3) 04/09/17 06:00 Total Bilirubin 0.2 mg/dL (0.3-1.0) L 04/05/17 12:40 AST 16 U/L (13-39) 04/05/17 12:40 ALT 10 U/L (7-52) 04/05/17 12:40 Alkaline Phosphatase 44 U/L (34-104) 04/05/17 12:40 Total Protein 6.8 gm/dL (6.0-8.3) 04/05/17 12:40 Albumin 3.2 gm/dL (4.2-5.5) L 04/05/17 12:40 Globulin 3.6 gm/dL 04/05/17 12:40 Albumin/Globulin Ratio 0.9 (1.0-1.8) L 04/05/17 12:40 Stool Occult Blood POSITIVE (NEGATIVE) H 04/08/17 10:45 Blood Type O POSITIVE 04/05/17 16:26 Antibody Screen NEGATIVE 04/05/17 16:26 Crossmatch See Detail 04/05/17 16:26 - Physical Exam Vitals and I&O: Vital Signs Temp 98.4 F 04/09/17 11:31 Pulse 88 04/09/17 12:40 Resp 16 04/09/17 11:31 BP 125/61 04/09/17 12:40 Pulse Ox 96 04/09/17 11:31 Intake & Output 04/08/17 04/09/17 04/09/17 18:59 06:59 18:59 Intake Total 350 Balance 350 Weight (lbs) 114.895 kg Intake: Oral 350 Other: # Voids 1 # Bowel Movements 0 Stool Characteristics Soft Active Medications: Current Medications Acetaminophen (Tylenol) 650 mg PO Q6H PRN PRN Reason: Pain/Fever >100 F Stop: 06/04/17 22:29 Last Admin: 04/09/17 02:20 Dose: 650 mg Acetaminophen/Hydrocodone Bitart ([place] 10 Mg/325 Mg) 1 tab PO Q6H PRN PRN Reason: Pain (Moderate) Stop: 06/04/17 15:48 Last Admin: 04/09/17 08:53 Dose: 1 tab Amlodipine Besylate (Norvasc) 10 mg PO DAILY [facility] Stop: 06/05/17 08:59 Last Admin: 04/09/17 08:46 Dose: 10 mg Ascorbic Acid (Vitamin C) 500 mg PO BID [facility] Stop: 06/05/17 16:59 Last Admin: 04/09/17 08:47 Dose: 500 mg Aspirin (Aspirin Chewable) 81 mg PO DAILY [facility] Stop: 06/06/17 08:59 Last Admin: 04/09/17 08:46 Dose: 81 mg Atropine Sulfate (Isopto Atropine 1% Oph Soln) 1 drop RIGHT EYE BID [facility] Stop: 06/05/17 16:59 Last Admin: 04/09/17 08:45 Dose: 1 drop Bisacodyl (Dulcolax 10 Mg Supp) 10 mg RC DAILY [facility] Stop: 06/06/17 08:59 Last Admin: 04/09/17 08:48 Dose: 10 mg Budesonide (Pulmicort) 0.5 mg HHN Q12HRT [facility] Stop: 06/05/17 12:29 Last Admin: 04/09/17 07:52 Dose: 0.5 mg Calcium Acetate (Phoslo) 1,334 mg PO TIDWM [facility] Stop: 06/05/17 16:59 Last Admin: 04/09/17 12:39 Dose: 1,334 mg Carvedilol (Coreg) 25 mg PO Q12HR [facility] Stop: 06/05/17 08:59 Last Admin: 04/09/17 08:47 Dose: Not Given Hydralazine HCl (Apresoline) 100 mg PO Q8HR [facility] Stop: 06/05/17 04:59 Last Admin: 04/09/17 12:40 Dose: 100 mg Insulin Aspart (Novolog Insulin Sliding Scale) 0 units SUBQ ACHS [facility] PRN Reason: Protocol Stop: 06/04/17 22:22 Last Admin: 04/09/17 11:10 Dose: Not Given Miscellaneous (Vte Chemical Prophylaxis Screen/ Admission) 1 ea [facility] PRN PRN PRN Reason: PROTOCOL Stop: 06/05/17 17:14 Nitroglycerin (Nitrostat) 0.4 mg SL Q5MIN PRN PRN Reason: Chest Pain Stop: 06/04/17 22:23 Ondansetron HCl (Zofran) 4 mg IVP Q4H PRN PRN Reason: Nausea / Vomiting Stop: 06/04/17 21:15 General: Alert HEENT: Atraumatic, PERRLA Neck: Supple Cardiovascular: Regular rate, Normal S1, Normal S2 Lungs: Clear to auscultation Abdomen: Bowel sounds, Soft - Procedures Procedures: Procedures Procedure Code Date BLOOD TRANSFUSION SERVICE 69724 04/05/17 COLONOSCOPY AND BIOPSY 70294 04/05/17 EGD BIOPSY SINGLE/MULTIPLE 88717 04/05/17 EXCISION OF DUODENUM, ENDO, DIAGN [id number] 04/05/17 EXCISION OF SIGMOID COLON, ENDO, DIAGN [id number] 04/05/17 EXCISION OF STOMACH, ENDO, DIAGN [id number] 04/05/17 TRANSFUSE NONAUT RED BLOOD CELLS IN PERIPH VEIN, PERC 08709Q0 04/05/17 Assessment/Plan - Assessment Assessment: SEVERE ANEMIA ESRD HTN DM HYPERLIPIDEMIA - Plan Plan: CONTINUE HD SUPPORT WILL MONITOR ELECTROLYTES
[2017-04-09 17:55] LABS: INR 1.09 (0.5-1.4); PROTHROMBIN TIME (TEST) 11.3 SECONDS (9.5-11.5)
[2017-04-09] MEDS ORDERED: fentaNYL Citrate 100 mcg/2mL Vial ONE (18:52)
[2017-04-09] MEDS ORDERED: Midazolam 1mg/ml 2 ml vial IV ONE (18:52)
--- NOTE | 2017-04-09 20:16 | Consultation ---
DATE OF CONSULTATION: 04/09/2017 EMERGENCY VASCULAR CONSULTATION REFERRING PHYSICIAN: Surya Roche DO REASON FOR CONSULTATION: New dialysis access. Thank you for referring this patient to me. HISTORY OF PRESENT ILLNESS: This is a 76-year-old male admitted because of lethargy and increased weakness and evaluated for GI bleeding. He underwent a GI consultation and endoscopy. Other comorbidities include hypertension, muscle weakness, diabetes mellitus, hyperlipidemia. The patient was on his way to be discharged and pulled out his Perm-A-Cath in the right subclavian and the right internal jugular location. For this reason, the discharge was held and a Perm-A-Cath will be inserted in the subclavian location under ultrasound guidance. Dr. Roche, the attending physician was called and apparently the patient can sign his own consent. JOB# [id number]
--- NOTE | 2017-04-09 22:14 | Consultation ---
DATE OF CONSULTATION: 04/09/2017 EMERGENCY VASCULAR CONSULTATION REFERRING PHYSICIAN: Dr. Issa. REASON FOR CONSULTATION: Absence of catheter for hemodialysis. Thank you for referring this patient to me. This is a 76-year-old male who was admitted because of low hemoglobin. On the day of admission, they withheld doing hemodialysis treatment. His other comorbidities includes hypertension, muscle weakness, diabetes mellitus, hyperlipidemia. He has been seen by Gastroenterology, had EGD done. He was on his way for discharge tonight when he pulled out his Perm-A-Cath placed at another facility in the right internal jugular location. It appears the patient has no family and Dr. Roche has authorized the need for medical necessity to place dialysis permanent catheter in this patient, so he can be dialyzed after discharge. LABORATORY STUDIES: Today, WBC is normal, hemoglobin is 8.2. The platelet count is 439,000. BUN is 78 with creatinine of 7.8. PHYSICAL EXAMINATION: GENERAL: The patient is extremely obese. The catheter has been pulled out of the right internal jugular location. The patient has agreed to proceed with placement of Perm-A-Cath in the subclavian location under ultrasound guidance and fluoroscopy as he agrees to the need for hemodialysis treatment for his kidney failure. JOB# [id number]
--- NOTE | 2017-04-09 23:07 | Operative Report ---
DATE OF SURGERY: 04/09/2017 PREOPERATIVE DIAGNOSES: 1. Acute renal failure, question end-stage renal disease. 2. No access for hemodialysis treatment. 3. Obesity. 4. Diabetes mellitus. 5. Hypertension. POSTOPERATIVE DIAGNOSES: 1. Acute renal failure, question end-stage renal disease. 2. No access for hemodialysis treatment. 3. Obesity. 4. Diabetes mellitus. 5. Hypertension. OPERATION DONE: Placement of PermCath, left subclavian vein under ultrasound and fluoroscopy. SURGEON: Wilder Desai MD. ANESTHESIA: MAC. ANESTHESIOLOGIST: Mehreen. ESTIMATED BLOOD LOSS: None. PROCEDURE: The patient was given IV sedation. Left chest was prepped with ChloraPrep and draped in appropriate manner. Ultrasound was used to locate subclavian vein. An incision was made following 1% lidocaine injection. A size 18 needle was used to locate the vein. The guide was inserted under fluoroscopy and was found to follow the course into the inferior vena cava. The dilator and then the introducer placed over the guidewire under fluoroscopy. A 24 cm Medcomp catheter was then inserted into the introducer under fluoroscopy. The tip of the catheter is in the superior vena cava. This anchored to chest wall with 2-0 nylon. Portable chest x-ray is ordered. The patient tolerated the procedure well. JOB# [id number]
--- NOTE | 2017-04-09 23:38 | Discharge Summary ---
DATE OF DISCHARGE: DISCHARGE DIAGNOSES: Acute gastrointestinal bleed secondary to gastritis and duodenitis, diverticulosis, end-stage renal disease with hemodialysis, hypertension, muscle weakness, unsteady gait, diabetes, dyslipidemia. ADMIT DIAGNOSES: Severe anemia, possible gastrointestinal bleed, end-stage renal disease, hypertension, muscle weakness. HISTORY OF PRESENT ILLNESS: A 76-year-old male who presented from [facility] and [facility] with the chief complaint of low hemoglobin. The patient was admitted to telemetry. Gastroenterology was consulted and opted to perform an EGD, which revealed duodenitis and gastritis. Gastroenterology performed an EGD, which revealed gastritis, duodenitis. Colonoscopy was performed that revealed a 2 mm sigmoid polyp, which was removed by forceps and diverticulosis. The patient was transfused multiple units of packed red blood cells. The patient's hemoglobin was stable at 8.8 upon discharge. The patient will be discharged back to [facility] and [facility]. JOB# [id number]
[2017-04-10 03:14] LABS: HEP A AB IGM Negative (Negative); HEP B CORE IGM Negative (Negative); HEP B SURFACE AG QL Negative (Negative); HEP C ANTIBODY 0.1 s/co ratio (0.0-0.9)
[2017-04-10 06:09] LABS: FERRITIN 998 ng/mL (30-400); IRON LC 19 ug/dL (38-169); TIBC (LC) 130 ug/dL (250-450); UIBC 111 ug/dL (111-343)
[2017-04-10] MEDS: Budesonide 0.5 Mg/2 mL Ud HHN SCH (07:42)
--- NOTE | 2017-04-10 07:57 | General Progress Note ---
Subjective - Review of Systems Service Date: 04/10/17 Subjective: Pt seen and eval. He was to be dc'd on 04/09/17, but he pulled out his perm-a- cath before ambulance arrived. Dr. Desai saw pt and reinserted. Pt to had hd today, and then he'll be dc'd. No n,v,d or cp. No falls or sz. No cough. Objective - Results Result Diagrams: 04/09/17 06:00 04/09/17 06:00 Recent Labs: Laboratory Last Values WBC 10.7 Th/cmm (4.8-10.8) D 04/09/17 06:00 RBC 2.70 Mil/cmm (3.80-5.80) L 04/09/17 06:00 Hgb 8.2 gm/dL (12-16) L 04/09/17 06:00 Hct 24.5 % (41.0-60) L 04/09/17 06:00 MCV 90.4 fl (80-99) 04/09/17 06:00 MCH 30.5 pg (27.0-31.0) 04/09/17 06:00 MCHC Differential 33.7 pg (28.0-36.0) 04/09/17 06:00 RDW 18.5 % (11.5-20.0) 04/09/17 06:00 Plt Count 439 Th/cmm (150-400) H 04/09/17 06:00 MPV 8.8 fl 04/09/17 06:00 Neutrophils % 61.7 % (40.0-80.0) 04/09/17 06:00 Lymphocytes % 23.7 % (20.0-50.0) 04/09/17 06:00 Monocytes % 10.6 % (2.0-10.0) H 04/09/17 06:00 Eosinophils % 3.4 % (0.0-5.0) 04/09/17 06:00 Basophils % 0.6 % (0.0-2.0) 04/09/17 06:00 PT 11.3 SECONDS (9.5-11.5) 04/09/17 17:33 INR 1.09 (0.5-1.4) 04/09/17 17:33 PTT (Actin FS) 34.2 SECONDS (26.0-38.0) 04/09/17 17:33 Sodium 137 mEq/L (136-145) 04/09/17 06:00 Potassium 4.6 mEq/L (3.5-5.1) 04/09/17 06:00 Chloride 95 mEq/L (98-107) L 04/09/17 06:00 Carbon Dioxide 25.2 mEq/L (21.0-31.0) 04/09/17 06:00 Anion Gap 21.4 (7.0-16.0) H 04/09/17 06:00 BUN 78 mg/dL (7-25) H 04/09/17 06:00 Creatinine 7.8 mg/dL (0.7-1.3) H* 04/09/17 06:00 Est GFR ( Amer) TNP 04/09/17 06:00 Est GFR (Non-Af Amer) TNP 04/09/17 06:00 BUN/Creatinine Ratio 10.0 04/09/17 06:00 Glucose 92 mg/dL (70-105) 04/09/17 06:00 POC Glucose 102 MG/DL (70 - 105) 04/09/17 21:38 Calcium 9.2 mg/dL (8.6-10.3) 04/09/17 06:00 Iron 19 ug/dL (38-169) L 04/08/17 06:05 TIBC 130 ug/dL (250-450) L 04/08/17 06:05 Iron Saturation 15 % (15-55) 04/08/17 06:05 Unsaturated IBC 111 ug/dL (111-343) 04/08/17 06:05 Ferritin 998 ng/mL (30-400) H 04/08/17 06:05 Total Bilirubin 0.2 mg/dL (0.3-1.0) L 04/05/17 12:40 AST 16 U/L (13-39) 04/05/17 12:40 ALT 10 U/L (7-52) 04/05/17 12:40 Alkaline Phosphatase 44 U/L (34-104) 04/05/17 12:40 Total Protein 6.8 gm/dL (6.0-8.3) 04/05/17 12:40 Albumin 3.2 gm/dL (4.2-5.5) L 04/05/17 12:40 Globulin 3.6 gm/dL 04/05/17 12:40 Albumin/Globulin Ratio 0.9 (1.0-1.8) L 04/05/17 12:40 Stool Occult Blood POSITIVE (NEGATIVE) H 04/08/17 10:45 Hepatitis A IgM Ab Negative (Negative) 04/08/17 06:05 Hep Bs Antigen Negative (Negative) 04/08/17 06:05 Hep B Core IgM Ab Negative (Negative) 04/08/17 06:05 Hepatitis C Antibody 0.1 s/co ratio (0.0-0.9) 04/08/17 06:05 Blood Type O POSITIVE 04/05/17 16:26 Antibody Screen NEGATIVE 04/05/17 16:26 Crossmatch See Detail 04/05/17 16:26 - Physical Exam Vitals and I&O: Vital Signs Temp 97.5 F 04/10/17 05:12 Pulse 90 04/10/17 05:22 Resp 19 04/10/17 05:12 BP 131/69 04/10/17 05:22 Pulse Ox 97 04/10/17 05:12 Intake & Output 04/09/17 04/10/17 04/10/17 18:59 06:59 18:59 Intake Total 720 50 Balance 720 50 Weight (lbs) 114.895 kg 114.759 kg Intake: Oral 720 50 Other: # Voids 0 # Bowel Movements 2 0 Active Medications: Current Medications Acetaminophen (Tylenol) 650 mg PO Q6H PRN PRN Reason: Pain/Fever >100 F Stop: 06/04/17 22:29 Last Admin: 04/09/17 02:20 Dose: 650 mg Acetaminophen/Hydrocodone Bitart (Wilmot 10 Mg/325 Mg) 1 tab PO Q6H PRN PRN Reason: Pain (Moderate) Stop: 06/04/17 15:48 Last Admin: 04/09/17 08:53 Dose: 1 tab Amlodipine Besylate (Norvasc) 10 mg PO DAILY [facility] Stop: 06/05/17 08:59 Last Admin: 04/09/17 08:46 Dose: 10 mg Ascorbic Acid (Vitamin C) 500 mg PO BID NAZIA Stop: 06/05/17 16:59 Last Admin: 04/09/17 17:37 Dose: Not Given Aspirin (Aspirin Chewable) 81 mg PO DAILY [facility] Stop: 06/06/17 08:59 Last Admin: 04/09/17 08:46 Dose: 81 mg Atropine Sulfate (Isopto Atropine 1% Oph Soln) 1 drop RIGHT EYE BID NAZIA Stop: 06/05/17 16:59 Last Admin: 04/09/17 17:37 Dose: 1 drop Bisacodyl (Dulcolax 10 Mg Supp) 10 mg RC DAILY NAZIA Stop: 06/06/17 08:59 Last Admin: 04/09/17 08:48 Dose: 10 mg Budesonide (Pulmicort) 0.5 mg HHN Q12HRT [facility] Stop: 06/05/17 12:29 Last Admin: 04/10/17 07:42 Dose: 0.5 mg Calcium Acetate (Phoslo) 1,334 mg PO TIDWM [facility] Stop: 06/05/17 16:59 Last Admin: 04/09/17 17:37 Dose: Not Given Carvedilol (Coreg) 25 mg PO Q12HR [facility] Stop: 06/05/17 08:59 Last Admin: 04/09/17 21:26 Dose: 25 mg Hydralazine HCl (Apresoline) 100 mg PO Q8HR [facility] Stop: 06/05/17 04:59 Last Admin: 04/10/17 05:22 Dose: Not Given Insulin Aspart (Novolog Insulin Sliding Scale) 0 units SUBQ ACHS NAZIA PRN Reason: Protocol Stop: 06/04/17 22:22 Last Admin: 04/09/17 21:39 Dose: Not Given Miscellaneous (Vte Chemical Prophylaxis Screen/ Admission) 1 ea [facility] PRN PRN PRN Reason: PROTOCOL Stop: 06/05/17 17:14 Nitroglycerin (Nitrostat) 0.4 mg SL Q5MIN PRN PRN Reason: Chest Pain Stop: 06/04/17 22:23 Ondansetron HCl (Zofran) 4 mg IVP Q4H PRN PRN Reason: Nausea / Vomiting Stop: 06/04/17 21:15 General: No acute distress HEENT: Atraumatic, PERRLA Neck: Supple Cardiovascular: Regular rate, Normal S1, Normal S2 Lungs: Clear to auscultation Abdomen: Bowel sounds, Soft - Procedures Procedures: Procedures Procedure Code Date BLOOD TRANSFUSION SERVICE 87713 04/05/17 COLONOSCOPY AND BIOPSY 01811 04/05/17 EGD BIOPSY SINGLE/MULTIPLE 60042 04/05/17 EXCISION OF DUODENUM, ENDO, DIAGN [id number] 04/05/17 EXCISION OF SIGMOID COLON, ENDO, DIAGN [id number] 04/05/17 EXCISION OF STOMACH, ENDO, DIAGN [id number] 04/05/17 TRANSFUSE NONAUT RED BLOOD CELLS IN PERIPH VEIN, PERC 37454I9 04/05/17 Assessment/Plan - Assessment Assessment: Acute GI bleed secondary to gastritis and duodenitis Diverticulosis VMN ESRD HTN Dm Dyslipid - Plan Plan: Addendum to dc summary: Pt pulled out his perm-a-cath on 04/09/17, so dc was delayed. He had it reinserted by Dr. Desai. He's scheduled for HD today, then he'll be dc' d.
--- NOTE | 2017-04-10 08:36 | Diagnostic Imaging Report ---
Exam: Chest x-ray HISTORY: Permacath placement. Findings: Portable examination of chest supine at 1942 reviewed compatible prior study to 118 demonstrates interval placement of the left subclavian catheter terminates in superior vena cava. Previously noted right subclavian catheter is no longer visualized. Mediastinal structures midline the heart is not enlarged costophrenic angles are clear. There is evidence for mild right basilar peribronchial infiltrate. Follow-up examination recommended. IMPRESSION: Left subclavian catheter terminates in superior vena cava. Right basilar infiltrate follow-up dictation recommended.
--- NOTE | 2017-04-10 08:58 | Diagnostic Imaging Report ---
C-arm portable examination intraoperative HISTORY: Permacath placement. Findings Portable C-arm examination images of the upper chest reviewed the study demonstrates left subclavian catheter terminates in superior vena cava. IMPRESSION successful placement of left subclavian catheter with tip in superior vena cava.
[2017-04-10] MEDS: Aspirin 81mg Chewable Tab PO SCH (09:33)
--- NOTE | 2017-04-10 09:49 | Progress Notes ---
DATE: 04/09/2017 SUBJECTIVE: The patient is resting in bed, has no complaints at this time. The patient is tolerating oral intake without complication. He has no signs of bleeding. His hemoglobin remained stable at this time. PHYSICAL EXAMINATION: VITAL SIGNS: Heart rate is 80, respirations 18, temperature is 97.9 degrees, blood pressure is 120/36. GENERAL: NAD. HEENT: PERRLA, EOMI. NECK: Supple. Trachea midline. CARDIOVASCULAR: Regular rate and rhythm. RESPIRATORY: Decreased breath sounds bilaterally. ABDOMEN: Soft, nontender, nondistended. Bowel sounds positive in all 4 quadrants. SKIN: No rashes or open wounds. MUSCULOSKELETAL: Muscle strength testing in bilateral upper and lower extremities 4/5. ASSESSMENT AND PLAN: Gastritis, duodenitis, severe anemia, acute GI bleed, end-stage renal disease, hemodialysis, hypertension, muscle weakness, diabetes, lipidemia. Gastroenterology, Nephrology is currently following. The patient has been ordered to ensure that he does not have any bleeding. No dialysis scheduled for today. Pain control. JOB# [id number]
[2017-04-10] MEDS: Hydrocodone/APAP 10 mg/325 mg Tab PO PRN (09:51)
[2017-04-10] MEDS: INSULIN ASPART SLIDING SCALE 100 UNITS/ML UNIT SUBQ SCH (11:07)
--- NOTE | 2017-04-10 14:24 | Pathology Report ---
[id number] Collection Date: 04/07/2017 Surgeon: Dr. Roderick Ochoa Specimen Description: 1. Duodenum biopsy 2. Antrum biopsy 3. Sigmoid polyp Gross Description: Part I: Received in formalin is a single fragment of alvarez soft tissue measuring 0.2 cm in greatest dimension. Totally submitted in one cassette labeled A. Gross Description: Part II: Received in formalin are two alvarez soft tissue fragments ranging from 0.1 to 0.2 cm in greatest dimension. Totally submitted in one cassette labeled B. Gross Description: Part III: Received in formalin is a single alvarez soft tissue fragment measuring 0.1 cm in greatest dimension. Totally submitted in one cassette labeled C. Microscopic Description: Part I: The histologic sections show duodenal mucosa with intact intestinal villi, showing no evidence for villous abnormality. There is mild chronic inflammation present consisting of slightly increased numbers of lymphocytes and plasma cells. Diagnosis: Part I: 1. Mild nonspecific chronic inflammation, duodenum biopsy. 2. There is no evidence for celiac disease/sprue. Microscopic Description: Part II: The histologic sections show gastric mucosa with mild chronic inflammation present consisting of lymphocytes and plasma cells. The Giemsa stain shows no evidence for Helicobacter pylori. Diagnosis: Part II: 1. Mild chronic gastritis, antrum biopsy. 2. The Giemsa stain is negative for Helicobacter pylori. Microscopic Description: Part III: The histologic sections show colon mucosa with focal adenomatous glandular changes present, consisting of nuclear enlargement and stratification with mostly tubules formed consistent with tubular adenoma. Diagnosis: Part III: Benign adenomatous polyp consistent with tubular adenoma (sigmoid colon). [facility]# [id number]
== END 2017-04-10 19:15 | disposition home or self-care (01) | DRG 377 ==
LOC: ER 11:59 → TELE 15:00
PROVIDERS: ADMIT Family Medicine; ATTEND Family Medicine
PROC: 30233N1 Transfusion of Nonautologous Red Blood Cells into Peripheral Vein, Percutaneous Approach (ICD-10-PCS; 2017-04-05)
PROC: 0DB98ZX Excision of Duodenum, Via Natural or Artificial Opening Endoscopic, Diagnostic (ICD-10-PCS; principal; 2017-04-07)
PROC: 0DB68ZX Excision of Stomach, Via Natural or Artificial Opening Endoscopic, Diagnostic (ICD-10-PCS; 2017-04-07)
PROC: 0DBN8ZX Excision of Sigmoid Colon, Via Natural or Artificial Opening Endoscopic, Diagnostic (ICD-10-PCS; 2017-04-07)
PROC: 5A1D70Z Performance of Urinary Filtration, Intermittent, Less than 6 Hours Per Day (ICD-10-PCS; 2017-04-07)
PROC: 02HV33Z Insertion of Infusion Device into Superior Vena Cava, Percutaneous Approach (ICD-10-PCS; 2017-04-09)
PROC: B5181ZA Fluoroscopy of Superior Vena Cava using Low Osmolar Contrast, Guidance (ICD-10-PCS; 2017-04-09)
PROC: 5A1D70Z Performance of Urinary Filtration, Intermittent, Less than 6 Hours Per Day (ICD-10-PCS; 2017-04-10)
DX: K29.71 Gastritis, unspecified, with bleeding (principal); N18.6 End stage renal disease; N17.0 Acute kidney failure with tubular necrosis; I13.2 Hypertensive heart and chronic kidney disease with heart failure and with stage 5 chronic kidney disease, or end stage renal disease; Z68.41 Body mass index [BMI] 40.0-44.9, adult; E11.22 Type 2 diabetes mellitus with diabetic chronic kidney disease; D64.9 Anemia, unspecified; E78.5 Hyperlipidemia, unspecified; R26.81 Unsteadiness on feet; W18.30XA Fall on same level, unspecified, initial encounter; M62.81 Muscle weakness (generalized); H40.9 Unspecified glaucoma; E66.9 Obesity, unspecified; I50.9 Heart failure, unspecified; K29.81 Duodenitis with bleeding; K57.31 Diverticulosis of large intestine without perforation or abscess with bleeding; K63.5 Polyp of colon; Y93.89 Activity, other specified; Y92.89 Other specified places as the place of occurrence of the external cause; Y99.8 Other external cause status; Z99.2 Dependence on renal dialysis; Z88.5 Allergy status to narcotic agent; Z88.0 Allergy status to penicillin; Z79.82 Long term (current) use of aspirin; Z79.4 Long term (current) use of insulin
CPT/HCPCS: 36415-UA; 71045-TC; 76000-TC; 80048-TC; 80053-TC; 80074-90; 82270-TC; 82728-90; 82948-90; 83540-90; 83550-90; 85025-TC; 85610-TC; 85730-TC; 86850-TC; 86900-TC; 86901-TC; 86922-TC; 88305-90; 88312-90; 90937; 93005; 94760; J1644; J1815; J2001; J2250; J2704; J3010; J7030; J7040; P9016; X6026; X6158; Z7506; Z7610

== ENCOUNTER 2017-06-11 19:31 | Inpatient (IN) | payer MEDICARE, MEDICAID ==
[2017-06-11 21:47] LABS: MEAN CELL VOLUME 84.1 fl (80-99); MEAN CORPUSCULAR HEMOGLOBIN 25.7 pg (27.0-31.0); MEAN CORPUSCULAR HGB CONC 30.6 pg (28.0-36.0); MEAN PLATELET VOLUME 7.8 fl; PLATELET COUNT 465 Th/cmm (150-400); WHITE BLOOD COUNT 8.3 Th/cmm (4.8-10.8)
[2017-06-11 21:54] LABS: HEMATOCRIT 22.7 % (41.0-60); MANUAL DIFF REQUIRED? YES
[2017-06-11 21:59] LABS: INR 1.04 (0.5-1.4); PROTHROMBIN TIME (TEST) 10.8 SECONDS (9.5-11.5)
[2017-06-11 22:04] LABS: ALB/GLOB RATIO 0.7 (1.0-1.8); ALKALINE PHOSPHATASE 66 U/L (34-104); ANION GAP 11.2 (7.0-16.0); BILIRUBIN,TOTAL 0.3 mg/dL (0.3-1.0); BUN - UREA NITROGEN 18 mg/dL (7-25); CALCIUM SERUM 9.3 mg/dL (8.6-10.3); CARBON DIOXIDE 34.1 mEq/L (21.0-31.0); CHLORIDE 94 mEq/L (98-107); CREATININE - SERUM 2.7 mg/dL (0.7-1.3); GLUCOSE 124 mg/dL (70-105); POTASSIUM SERUM 3.3 mEq/L (3.5-5.1); SGOT 14 U/L (13-39); SGPT/ALT 4 U/L (7-52); SODIUM SERUM 136 mEq/L (136-145); TOTAL PROTEIN,SERUM 7.2 gm/dL (6.0-8.3)
--- NOTE | 2017-06-11 22:26 | ED Physician Chart ---
ED Chief Complaint/HPI - Patient Information Date Seen:: 06/11/17 Time Seen:: 20:30 Chief Complaint:: low hemoglobin History of Present Illness:: location: general quality: low hemoglobin severity: moderate duration: few days context: SNF pt had routine labs, hemoglobin on labs was 6. SNF RN notified primary physician Dr. Mustafa who recommended transfer to ER for further assessment. on arrival medics report pt with stable vital signs, awake, alert. no bleeding source identified. pt with no vomiting and no reported diarrhea. no hemoptysis. left subclavicular dialysis access pt with no pain complaint. but says this has happened before but not recently. mod factors: none assoc s/s: none hx from pt, EMS, SNF Allergies:: Allergies Allergy/AdvReac Type Severity Reaction Status Date / Time morphine Allergy Verified 06/11/17 20:47 Penicillins [PCN] Allergy Verified 06/11/17 20:47 Vitals:: Vital Signs - 8 hr 06/11/17 06/11/17 20:00 22:05 Temp 98.1 F 98.1 F HR 90 92 RR 16 20 BP 155/90 142/74 O2 Sat % 95 96 Historian:: Patient, EMS, Medical Records Review:: Nurse's Note Reviewed, EMS run form Reviewed ED Review of Systems - Review of Systems General/Constitutional: No fever, No loss of appetite (pt is hungry and asks for food while in ER. ) Skin: No rash Head: No light-headedness Eyes: No diplopia ENT: No sore throat Neck: No stiffness Cardio Vascular: No edema Pulmonary: No cough, No wheezing GI: No vomiting, No diarrhea G/U: No dysuria Musculoskeletal: No bone or joint pain Allergic/Immuno: No angioedema Neurological: No syncope, No seizure ED Past Medical History - Past Medical History Past Medical History: HTN, CAD, CHF, Asthma/COPD, ESRD, Thyroid disorder, Other (B 12 deficiency, chronic anemia, ) Family History: Diabetes Melitus Social History: Non Smoker, No Alcohol, No Drug Use, Single, Care Facility Surgical History: other (bilateral knee replacement, bilateral shoulder replacement) Psychiatricy History: None Medication: Reviewed Family Medical History - Family Member Mother History Unknown: Yes ED Physical Exam - Physical Examination General/Constitutional: Awake, Well-developed, well-nourished, Alert, No distress, GCS 15, Non-toxic appearing, Ambulatory (pt says he is currently not ambulatory. says he does not walk currently. no lower limb pain or complaint. ) Head: Atraumatic Eyes: Lids, conjuctiva normal, PERRL, EOMI Skin: Nl inspection, No rash, No lymphadenopathy ENMT: External ears, nose nl, Nasal exam nl, Lips, teeth, gums nl, Oropharynx nl (poor dentition, advanced dental caries of multiple teeth. no pus, no bleeding. ) Neck: Nontender, No nuchal rigidity Respiratory: Nl effort/Exclusion, Clear to Auscultation, No Wheeze/Rhonchi/Rales Cardio Vascular: RRR, No murmur, gallop, rubs, NL S1 S2 GI: No tenderness/rebounding/guarding, Normal BS's, Nondistended : No CVA tenderness Extremities: No tenderness or effusion, No edema Neuro/Psych: Alert/oriented, Judgement/insight normal, Mood normal, No focal deficits Misc: Normal back, No paraspinal tenderness ED Labs/Radiology/EKG Results - Lab Results Results: Laboratory Tests 06/11/17 06/11/17 06/11/17 21:39 21:39 21:39 WBC 8.3 RBC 2.70 L Hgb 7.0 L* Hct 22.7 L MCV 84.1 MCH 25.7 L MCHC Differential 30.6 RDW 18.0 Plt Count 465 H MPV 7.8 PT 10.8 INR 1.04 PTT (Actin FS) 29.9 Sodium 136 Potassium 3.3 L Chloride 94 L Carbon Dioxide 34.1 H Anion Gap 11.2 BUN 18 Creatinine 2.7 H Est GFR ( Amer) TNP Est GFR (Non-Af Amer) TNP BUN/Creatinine Ratio 6.7 Glucose 124 H Calcium 9.3 Total Bilirubin 0.3 AST 14 ALT 4 L Alkaline Phosphatase 66 Total Protein 7.2 Albumin 3.0 L Globulin 4.2 Albumin/Globulin Ratio 0.7 L - EKG Interpretations Comments:: EKG NSR 91 multiple premature complexes ventricular and supraventricular borderline T abnormalities, lateral leads borderline prolonged QT interval pt says he is having no chest pain and no shortness of breath or cough abnormal EKG with chronic findings ED Assessment - Assessment General Assessment: pt stable while in ER. ED Septic Shock - . Is Septic Shock (SBP<90, OR Lactate>4 mmol\L) present?: No - <6hrs of presentation: Vital Signs: Vital Signs - 8 hr 06/11/17 06/11/17 20:00 22:05 Temp 98.1 F 98.1 F HR 90 92 RR 16 20 BP 155/90 142/74 O2 Sat % 95 96 ED Reassessment (Disposition) - Reassessment Reassessment:: pt stable during ER stay. Reassessment Condition:: Unchanged - Diagnosis Diagnosis:: significant anemia, low hemoglobin - Aftercare/Follow up Instructions Notes:: will advise admission for IV fluids and blood transfusion in patient with prior history of anemia and blood transfusion. - Patient Disposition Discharge/Transfer:: Acute Care w/in this hosp Admitted to:: Med/Surg Admitting Medical Physician:: Diaz Mustafa Time:: 22:35 Condition at Disposition:: Stable, Improved
[2017-06-11 22:34] LABS: BAND NEUTROPHILE 2 % (0-10); BASOPHIL 0 % (0-3); EOSINOPHIL 0 % (0-5); HYPOCHROMIA 1+; LYMPHOCYTE 31 % (20-50); MONOCYTE 9 % (2-10); NEUTROPHILS 58 % (40-80); TOTAL CELLS COUNTED 100
[2017-06-11] MEDS ORDERED: Albuterol/Ipratropium Neb 3 ML AERS HHN PRN (22:43)
[2017-06-11] MEDS ORDERED: POLYETHYLENE GLYCOL 3350 17 GM PACK PO PRN (22:45)
[2017-06-11] MEDS ORDERED: ALBUTEROL SULFATE IH PRN (22:45)
[2017-06-11] MEDS ORDERED: Hydrocodone/APAP 10 mg/325 mg Tab PO PRN (22:45)
[2017-06-12 05:15] LABS: ANION GAP 11.7 (7.0-16.0); BUN - UREA NITROGEN 22 mg/dL (7-25); CALCIUM SERUM 9.1 mg/dL (8.6-10.3); CARBON DIOXIDE 33.5 mEq/L (21.0-31.0); CHLORIDE 94 mEq/L (98-107); CREATININE - SERUM 3.3 mg/dL (0.7-1.3); GLUCOSE 118 mg/dL (70-105); POTASSIUM SERUM 3.2 mEq/L (3.5-5.1); SODIUM SERUM 136 mEq/L (136-145)
[2017-06-12 05:32] LABS: MEAN CELL VOLUME 84.7 fl (80-99); MEAN CORPUSCULAR HEMOGLOBIN 25.9 pg (27.0-31.0); MEAN CORPUSCULAR HGB CONC 30.6 pg (28.0-36.0); MEAN PLATELET VOLUME 8.6 fl; PLATELET COUNT 383 Th/cmm (150-400); RED BLOOD COUNT 2.59 Mil/cmm (3.80-5.80); WHITE BLOOD COUNT 11.4 Th/cmm (4.8-10.8)
[2017-06-12 05:36] LABS: HEMOGLOBIN 6.7 gm/dL (12-16)
[2017-06-12 05:37] LABS: MANUAL DIFF REQUIRED? YES
[2017-06-12 06:03] LABS: BAND NEUTROPHILE 2 % (0-10); EOSINOPHIL 2 % (0-5); LYMPHOCYTE 23 % (20-50); MONOCYTE 5 % (2-10); NEUTROPHILS 68 % (40-80); TOTAL CELLS COUNTED 100
[2017-06-12] MEDS: Levothyroxine 0.075 Mg Tab PO SCH (06:47)
--- NOTE | 2017-06-12 08:01 | Diagnostic Imaging Report ---
CHEST X-RAY: AP view INDICATION: Weakness COMPARISON: 04/09/2017 FINDINGS: Left-sided dialysis catheter is stable. Improving bilateral patchy infiltrates are noted. No evidence of CHF. Chronic lung changes are noted. The heart size is normal. Atherosclerosis is noted. IMPRESSION: Interval improvement in multifocal bilateral infiltrates.
--- NOTE | 2017-06-12 08:05 | History & Physical ---
ADMIT DATE: 06/12/2017 CHIEF COMPLAINT: Severe anemia. HISTORY OF PRESENT ILLNESS: The patient is a pleasant 76-year-old male who is a patient of mine at [facility]. He has a history of end-stage renal disease along with anemia, dyslipidemia, diabetes, and hypertension. The patient's hemoglobin was 6 and he was sent for further workup and treatment. PAST MEDICAL HISTORY: Significant for anemia, vasomotor nephropathy, end-stage renal disease, diabetes, hypertension, and unsteady gait. SOCIAL HISTORY: Denies any alcohol, tobacco, or drug abuse. FAMILY HISTORY: Noncontributory. ALLERGIES: No known drug allergies. MEDICATIONS: All medications reviewed and reconciled. REVIEW OF SYSTEMS: GENERAL: Positive for recent fatigue, but no fevers or chills. HEENT: No recent head trauma, change in vision, taste, hearing, or smell. Oral: No recent pain or discharge. NECK: No recent tracheal deviation. ABDOMEN: No recent pain or distension. SKIN: No recent rashes. PSYCHIATRIC: No history of psychosis or hallucinations. NEUROLOGIC: No history of stroke or seizure. ENDOCRINE: He has history of diabetes. MUSCULOSKELETAL: Positive for unsteady gait. NEPHROLOGY: He has history of end-stage renal disease. PHYSICAL EXAMINATION: VITAL SIGNS: Temperature 97 degrees, heart rate is 90, respirations 19, blood pressure 146/85. Currently, no pain. GENERAL: No acute distress, awake, alert, and pleasant. HEENT: No acute issues. NECK: Trachea is midline. CARDIOVASCULAR: Regular rate and rhythm. SKIN: No rashes. PSYCHIATRIC: No psychosis or hallucination. EXTREMITIES: No edema. MUSCULOSKELETAL: Decreased muscle strength in lower extremities. LABORATORY DATA: White count is 11.4, hemoglobin 6.7 and platelet count is 383,000. Sodium 136, potassium 3.2, chloride 94, bicarbonate 33.5, BUN 23, and creatinine 3.3. Chest x-ray is pending. ASSESSMENT AND PLAN: 1. Severe anemia of chronic illness. 2. Vasomotor nephropathy. 3. Hypokalemia. 4. End-stage renal disease. 5. Dyslipidemia. 6. Gout. 7. Chronic obstructive pulmonary disease. 8. Benign prostatic hypertrophy. 9. Hypertension. PLAN: The patient's blood pressure is currently stable. He usually runs on the high side. Currently, it is 146/85. He will be receiving one unit PRBC. Nephrology has been consulted. I will check stool occult blood. Reconcile the rest of the medications. Prognosis is guarded. JOB# [id number]
[2017-06-12] MEDS: INSULIN ASPART SLIDING SCALE 100 UNITS/ML UNIT SUBQ SCH ×4 (08:14→20:40)
[2017-06-12] MEDS: Fish Oil 1,000 MG SGL PO SCH (08:17)
[2017-06-12] MEDS: Lactulose 10 Gm/15 mL 30mL UDC PO SCH ×2 (08:17→17:45)
[2017-06-12] MEDS: Pantoprazole 40 mg EC Tab PO SCH (08:18)
[2017-06-12] MEDS: Ferrous Sulfate 325 MG TAB PO SCH ×2 (08:18→17:44)
[2017-06-12] MEDS: Aspirin 81mg Chewable Tab PO SCH (08:18)
[2017-06-12] MEDS ORDERED: VTE Chemical Prophylaxis Screen/Admission MC PRN (10:13)
[2017-06-12 16:53] LABS: A1C % 5.1 % (4.0-6.0)
--- NOTE | 2017-06-12 17:59 | Consultation ---
Consult Note - Consult Note Service Date: 06/12/17 Consult Note: PHYSICIAN Consultation Note: Date of Admission: 06/11/17 Purpose of Consultation: Chief Complaint: History of Present Illness: Patient JUANIS MONTESINOS was admitted to [facility] with ANEMIA. 76 year old male on hemodialysis admitted with severe anemia Past Medical History: Diagnoses ANEMIA, UNSPECIFIED (06/11/17) TYPE 2 DIABETES MELLITUS W DIABETIC CHRONIC KIDNEY DISEASE (06/11/17) HYPERLIPIDEMIA, UNSPECIFIED (06/11/17) HYPOKALEMIA (06/11/17) HYP CHR KIDNEY DISEASE W STAGE 5 CHR KIDNEY DISEASE OR ESRD (06/11/17) CHRONIC OBSTRUCTIVE PULMONARY DISEASE, UNSPECIFIED (06/11/17) GOUT, UNSPECIFIED (06/11/17) ACUTE KIDNEY FAILURE WITH TUBULAR NECROSIS (06/11/17) END STAGE RENAL DISEASE (06/11/17) BENIGN PROSTATIC HYPERPLASIA WITHOUT LOWER URINRY TRACT SYMP (06/11/17) DEPENDENCE ON RENAL DIALYSIS (06/11/17) Allergies Allergy/AdvReac Type Severity Reaction Status Date / Time morphine Allergy Verified 06/11/17 20:47 Penicillins [PCN] Allergy Verified 06/11/17 20:47 Vital Signs Temp 96.2 F 06/12/17 16:00 Pulse 86 06/12/17 16:00 Resp 18 06/12/17 16:00 BP 164/78 06/12/17 16:00 Pulse Ox 96 06/12/17 16:00 Intake & Output 06/11/17 06/12/17 06/12/17 18:59 06:59 18:59 Intake Total 250 Output Total 0 Balance 250 Weight (lbs) 101.559 kg Intake: Oral 250 Output: Urine 0 Other: # Bowel Movements 0 [facility] Results - last 24 hr 06/12/17 06/12/17 06/12/17 04:30 04:30 04:30 WBC 11.4 H RBC 2.59 L Hgb 6.7 L* Hct 22.0 L MCV 84.7 MCH 25.9 L MCHC Differential 30.6 RDW 18.0 Plt Count 383 MPV 8.6 Band Neutrophils % 2 Neutrophils (Manual) 68 Lymphocytes 23 Monocytes 5 Eosinophils 2 Sodium 136 Potassium 3.2 L Chloride 94 L Carbon Dioxide 33.5 H Anion Gap 11.7 BUN 22 Creatinine 3.3 H Est GFR ( Amer) TNP Est GFR (Non-Af Amer) TNP BUN/Creatinine Ratio 6.7 Glucose 118 H POC Glucose Hemoglobin A1c % 5.1 Calcium 9.1 06/12/17 06/12/17 06:50 11:25 WBC RBC Hgb Hct MCV MCH MCHC Differential RDW Plt Count MPV Band Neutrophils % Neutrophils (Manual) Lymphocytes Monocytes Eosinophils Sodium Potassium Chloride Carbon Dioxide Anion Gap BUN Creatinine Est GFR ( Amer) Est GFR (Non-Af Amer) BUN/Creatinine Ratio Glucose POC Glucose 167 H 131 H Hemoglobin A1c % Calcium Home Medication Medication Instructions Recorded Type Aspirin [Aspirin Chewable] 81 mg PO DAILY 04/05/17 History Finasteride [Proscar] 5 mg PO DAILY 04/05/17 History Levothyroxine Sodium 150 mcg PO DAILY 04/05/17 History Modafinil 200 mg PO BID 04/05/17 History Polyethylene Glycol 3350 [Miralax] 17 gm PO DAILY PRN 04/05/17 History Nitroglycerin [Nitrostat*] 0.4 mg SL Q5MIN PRN tab 04/09/17 Rx Albuterol Sulfate [Proair Hfa] 1 puff IH Q6HR PRN 06/11/17 History Allopurinol [Zyloprim*] 100 mg PO DAILY 06/11/17 History Atorvastatin Calcium [Lipitor] 80 mg PO DAILY 06/11/17 History Bumetanide [Bumex] 1 mg PO TID 06/11/17 History Calcium Acetate [Phoslo] 667 mg PO TID 06/11/17 History Cyanocobalamin [Vitamin B12] 100 mcg PO DAILY 06/11/17 History Docusate Sodium [Colace] 100 mg PO BID 06/11/17 History Ferrous Sulfate [Iron] 325 mg PO BID 06/11/17 History Fish Oil [[place] 3] 1,000 mg PO DAILY 06/11/17 History Hydralazine HCl 10 mg PO TID 06/11/17 History Hydrocodone/APAP 10 mg/325 mg 1 tab PO Q6H PRN 06/11/17 History [[place] 10 mg/325 mg] Isosorbide Dinitrate [Isordil] 10 mg PO TID 06/11/17 History Zinc Sulfate 220 mg PO DAILY 06/11/17 History Current Medications Generic Name Dose Route Start Last Admin Trade Name Freq PRN Reason Stop Dose Admin Acetaminophen 650 mg 04/09/18 22:44 Tylenol PO 08/10/17 22:43 Q6H PRN HEADACHE/TEMP ABOVE 100F Acetaminophen/Hydrocodone Bitart 1 tab 06/11/17 22:45 [place] 10 Mg/325 Mg PO 08/10/17 22:44 Q6H PRN Pain (Severe) Albuterol/Ipratropium 3 ml 06/11/17 22:43 Duoneb Neb HHN 08/10/17 22:42 Q4HRT PRN sob Allopurinol 100 mg 06/12/17 09:00 06/12/17 08:18 Zyloprim PO 08/11/17 08:59 100 mg DAILY NAZIA Administration Aspirin 81 mg 06/12/17 09:00 06/12/17 08:18 Aspirin Chewable PO 08/11/17 08:59 81 mg DAILY NAZIA Administration Atorvastatin Calcium 80 mg 06/12/17 09:00 06/12/17 08:18 Lipitor PO 08/11/17 08:59 80 mg DAILY NAZIA Administration Protocol Bumetanide 1 mg 06/12/17 09:00 Bumex PO 08/11/17 08:59 TID NAZIA Calcium Acetate 667 mg 06/12/17 09:00 06/12/17 13:31 Phoslo PO 08/11/17 08:59 667 mg TID NAZIA Administration Cyanocobalamin 100 mcg 06/12/17 09:00 06/12/17 08:18 Vitamin B12 PO 08/11/17 08:59 100 mcg DAILY NAZIA Administration Docusate Sodium 100 mg 06/12/17 09:00 06/12/17 17:44 Colace PO 08/11/17 08:59 100 mg BID NAZIA Administration Ferrous Sulfate 325 mg 06/12/17 09:00 06/12/17 17:44 Iron PO 08/11/17 08:59 325 mg BID NAZIA Administration Finasteride 5 mg 06/12/17 09:00 06/12/17 08:18 Proscar PO 08/11/17 08:59 5 mg DAILY NAZIA Administration Protocol Fish Oil 1,000 mg 06/12/17 09:00 06/12/17 08:17 [place] 3 PO 08/11/17 08:59 1,000 mg DAILY NAZIA Administration Heparin Sodium (Porcine) 5,000 units 06/12/17 21:00 Heparin SUBQ 08/11/17 20:59 Q12HR NAZIA Hydralazine HCl 10 mg 06/12/17 09:00 06/12/17 13:34 Apresoline PO 08/11/17 08:59 10 mg TID NAZIA Administration Hydralazine HCl 10 mg 06/11/17 22:47 06/12/17 08:32 Apresoline 20 Mg/Ml IV 08/10/17 22:59 10 mg Q6H PRN Administration sbp > 160 Insulin Aspart 0 units 06/12/17 07:30 06/12/17 11:35 Novolog Insulin Sliding Scale SUBQ 08/11/17 07:29 Not Given ACHS NAZIA Protocol Isosorbide Dinitrate 10 mg 06/12/17 09:00 06/12/17 13:31 Isordil PO 08/11/17 08:59 10 mg TID NAZIA Administration Lactulose 15 gm 06/12/17 09:00 06/12/17 17:45 Cephulac PO 08/11/17 08:59 Not Given BID NAZIA Levothyroxine Sodium 0.15 mg 06/12/17 07:30 06/12/17 06:47 Synthroid PO 08/11/17 07:29 0.15 mg QDAC NAZIA Administration Miscellaneous 1 ea 06/12/17 10:13 Vte Chemical Prophylaxis Screen/ Admission 08/11/17 10:12 PRN PRN PROTOCOL Modafinil 200 mg 06/12/17 09:00 06/12/17 17:45 Provigil PO 08/11/17 08:59 200 mg BID NAZIA Administration Nitroglycerin 0.4 mg 06/11/17 22:45 Nitrostat SL 08/10/17 22:44 Q5MIN PRN Chest Pain Pantoprazole Sodium 40 mg 06/12/17 09:00 06/12/17 08:18 Protonix PO 08/11/17 08:59 40 mg DAILY NAZIA Administration Polyethylene Glycol 17 gm 06/11/17 22:45 Miralax PO 08/10/17 22:44 DAILY PRN Constipation Zinc Sulfate 220 mg 06/12/17 09:00 06/12/17 08:21 Zinc Sulfate PO 08/11/17 08:59 220 mg DAILY NAZIA Administration Review of Systems: A 12 point ROS was reviewed with the pertinent positive and negatives noted in the HPI. Social History Smoking Status Unknown if ever smoked Family Medical History Family Medical History Start: 06/11/17 22: 56 Freq: ONCE Status: Active Document 06/11/17 22:56 DANIEL (Rec: 06/12/17 01:21 DANIEL ALEX-MS4) Family Medical History Mother History Unknown Yes Physical Exam: General: Pt in bed. no distress HEENT: PABLO, EMOI Neck: SUPPLE NO JVD Cardio: S1S2 RRR Respiratory: CLEAR B/L Abdominal: SOFT NT ND Genital/Urinary: Extremities: NO EDEMA Neurological: Assessment: ESRD HTN DM ANEMIA Plan: TRANSFUSE BLOOD HD in [place] Yip Farhad, M.D. [id number]
[2017-06-13 05:19] LABS: % BASOPHILS 0.6 % (0.0-2.0); % EOSINOPHILS 2.4 % (0.0-5.0); % LYMPHOCYTES 23.3 % (20.0-50.0); % MONOCYTES 8.5 % (2.0-10.0); % NEUTROPHILS 65.2 % (40.0-80.0); BASOPHILE ABSOLUTE 0.1 Th/cumm (0-0.2); EOSINOPHILE ABSOLUTE 0.2 Th/cmm (0.1-0.4); HEMATOCRIT 26.6 % (41.0-60); HEMOGLOBIN 8.3 gm/dL (12-16); LYMPHOCYTE ABSOLUTE 2.2 Th/cmm (1.5-3.0); MEAN CELL VOLUME 85.4 fl (80-99); MEAN CORPUSCULAR HEMOGLOBIN 26.7 pg (27.0-31.0); MEAN CORPUSCULAR HGB CONC 31.3 pg (28.0-36.0); MEAN PLATELET VOLUME 8.4 fl; MONOCYTE ABSOLUTE 0.8 Th/cmm (0.3-1.0); NEUTROPHILE ABSOLUTE 6.1 Th/cmm (1.8-8.0); PLATELET COUNT 437 Th/cmm (150-400); RED BLOOD COUNT 3.12 Mil/cmm (3.80-5.80); RED CELL DISTRIBUTION WIDTH 17.2 % (11.5-20.0); WHITE BLOOD COUNT 9.4 Th/cmm (4.8-10.8)
[2017-06-13 05:37] LABS: ANION GAP 12.6 (7.0-16.0); BUN - UREA NITROGEN 34 mg/dL (7-25); CALCIUM SERUM 9.6 mg/dL (8.6-10.3); CARBON DIOXIDE 31.7 mEq/L (21.0-31.0); CHLORIDE 96 mEq/L (98-107); GLUCOSE 116 mg/dL (70-105); POTASSIUM SERUM 3.3 mEq/L (3.5-5.1); SODIUM SERUM 137 mEq/L (136-145)
[2017-06-13 05:40] LABS: CREATININE - SERUM 4.6 mg/dL (0.7-1.3)
[2017-06-13] MEDS: Levothyroxine 0.075 Mg Tab PO SCH (06:31)
[2017-06-13] MEDS: INSULIN ASPART SLIDING SCALE 100 UNITS/ML UNIT SUBQ SCH ×4 (06:31→21:15)
[2017-06-13] MEDS: Fish Oil 1,000 MG SGL PO SCH (08:53)
[2017-06-13] MEDS: Aspirin 81mg Chewable Tab PO SCH (08:54)
[2017-06-13] MEDS: Lactulose 10 Gm/15 mL 30mL UDC PO SCH ×3 (08:54→16:19)
[2017-06-13] MEDS: Ferrous Sulfate 325 MG TAB PO SCH ×2 (08:54→16:18)
[2017-06-13] MEDS: Pantoprazole 40 mg EC Tab PO SCH (08:54)
--- NOTE | 2017-06-13 09:25 | General Progress Note ---
Subjective - Review of Systems Service Date: 06/13/17 Subjective: pt seen and examined resting comfortably in bed Objective - Results Result Diagrams: 06/13/17 04:45 06/13/17 04:45 Recent Labs: Laboratory Last Values WBC 9.4 Th/cmm (4.8-10.8) 06/13/17 04:45 RBC 3.12 Mil/cmm (3.80-5.80) L 06/13/17 04:45 Hgb 8.3 gm/dL (12-16) L 06/13/17 04:45 Hct 26.6 % (41.0-60) L 06/13/17 04:45 MCV 85.4 fl (80-99) 06/13/17 04:45 MCH 26.7 pg (27.0-31.0) L 06/13/17 04:45 MCHC Differential 31.3 pg (28.0-36.0) 06/13/17 04:45 RDW 17.2 % (11.5-20.0) 06/13/17 04:45 Plt Count 437 Th/cmm (150-400) H 06/13/17 04:45 MPV 8.4 fl 06/13/17 04:45 Neutrophils % 65.2 % (40.0-80.0) 06/13/17 04:45 Band Neutrophils % 2 % (0-10) 06/12/17 04:30 Lymphocytes % 23.3 % (20.0-50.0) 06/13/17 04:45 Monocytes % 8.5 % (2.0-10.0) 06/13/17 04:45 Eosinophils % 2.4 % (0.0-5.0) 06/13/17 04:45 Basophils % 0.6 % (0.0-2.0) 06/13/17 04:45 Neutrophils (Manual) 68 % (40-80) 06/12/17 04:30 Lymphocytes 23 % (20-50) 06/12/17 04:30 Monocytes 5 % (2-10) 06/12/17 04:30 Eosinophils 2 % (0-5) 06/12/17 04:30 Basophils 0 % (0-3) 06/11/17 21:39 Hypochromia 1+ 06/11/17 21:39 PT 10.8 SECONDS (9.5-11.5) 06/11/17 21:39 INR 1.04 (0.5-1.4) 06/11/17 21:39 PTT (Actin FS) 29.9 SECONDS (26.0-38.0) 06/11/17 21:39 Sodium 137 mEq/L (136-145) 06/13/17 04:45 Potassium 3.3 mEq/L (3.5-5.1) L 06/13/17 04:45 Chloride 96 mEq/L (98-107) L 06/13/17 04:45 Carbon Dioxide 31.7 mEq/L (21.0-31.0) H 06/13/17 04:45 Anion Gap 12.6 (7.0-16.0) 06/13/17 04:45 BUN 34 mg/dL (7-25) H 06/13/17 04:45 Creatinine 4.6 mg/dL (0.7-1.3) H* 06/13/17 04:45 Est GFR ( Amer) TNP 06/13/17 04:45 Est GFR (Non-Af Amer) TNP 06/13/17 04:45 BUN/Creatinine Ratio 7.4 06/13/17 04:45 Glucose 116 mg/dL (70-105) H 06/13/17 04:45 POC Glucose 110 MG/DL (70 - 105) H 06/13/17 06:16 Hemoglobin A1c % 5.1 % (4.0-6.0) 06/12/17 04:30 Calcium 9.6 mg/dL (8.6-10.3) 06/13/17 04:45 Total Bilirubin 0.3 mg/dL (0.3-1.0) 06/11/17 21:39 AST 14 U/L (13-39) 06/11/17 21:39 ALT 4 U/L (7-52) L 06/11/17 21:39 Alkaline Phosphatase 66 U/L (34-104) 06/11/17 21:39 Total Protein 7.2 gm/dL (6.0-8.3) 06/11/17 21:39 Albumin 3.0 gm/dL (4.2-5.5) L 06/11/17 21:39 Globulin 4.2 gm/dL 06/11/17 21:39 Albumin/Globulin Ratio 0.7 (1.0-1.8) L 06/11/17 21:39 Blood Type O POSITIVE 06/11/17 22:22 Antibody Screen NEGATIVE 06/11/17 22:22 Crossmatch See Detail 06/11/17 22:22 - Physical Exam Vitals and I&O: Vital Signs Temp 96.4 F 06/13/17 08:21 Pulse 82 06/13/17 08:54 Resp 18 06/13/17 08:21 BP 195/73 06/13/17 08:54 Pulse Ox 98 06/13/17 08:21 Intake & Output 06/12/17 06/13/17 06/13/17 18:59 06:59 18:59 Intake Total 240 Balance 240 Weight (lbs) 101.151 kg Intake: Oral 240 Other: # Voids 1 # Bowel Movements 1 Stool Characteristics Soft Weight Source Bedscale Active Medications: Current Medications Acetaminophen (Tylenol) 650 mg PO Q6H PRN PRN Reason: HEADACHE/TEMP ABOVE 100F Stop: 08/10/17 22:43 Acetaminophen/Hydrocodone Bitart ([place] 10 Mg/325 Mg) 1 tab PO Q6H PRN PRN Reason: Pain (Severe) Stop: 08/10/17 22:44 Albuterol/Ipratropium (Duoneb Neb) 3 ml HHN Q4HRT PRN PRN Reason: sob Stop: 08/10/17 22:42 Allopurinol (Zyloprim) 100 mg PO DAILY [facility] Stop: 08/11/17 08:59 Last Admin: 06/13/17 08:54 Dose: 100 mg Aspirin (Aspirin Chewable) 81 mg PO DAILY [facility] Stop: 08/11/17 08:59 Last Admin: 06/13/17 08:54 Dose: 81 mg Atorvastatin Calcium (Lipitor) 80 mg PO DAILY NAZIA PRN Reason: Protocol Stop: 08/11/17 08:59 Last Admin: 06/13/17 08:54 Dose: 80 mg Calcium Acetate (Phoslo) 667 mg PO TID [facility] Stop: 08/11/17 08:59 Last Admin: 06/13/17 08:53 Dose: 667 mg Cyanocobalamin (Vitamin B12) 100 mcg PO DAILY [facility] Stop: 08/11/17 08:59 Last Admin: 06/13/17 08:54 Dose: 100 mcg Docusate Sodium (Colace) 100 mg PO BID [facility] Stop: 08/11/17 08:59 Last Admin: 06/13/17 08:54 Dose: 100 mg Ferrous Sulfate (Iron) 325 mg PO BID [facility]ZIA Stop: 08/11/17 08:59 Last Admin: 06/13/17 08:54 Dose: 325 mg Finasteride (Proscar) 5 mg PO DAILY NAZIA PRN Reason: Protocol Stop: 08/11/17 08:59 Last Admin: 06/13/17 08:53 Dose: 5 mg Fish Oil ([place] 3) 1,000 mg PO DAILY [facility]ZIA Stop: 08/11/17 08:59 Last Admin: 06/13/17 08:53 Dose: 1,000 mg Heparin Sodium (Porcine) (Heparin) 5,000 units SUBQ Q12HR [facility] Stop: 08/11/17 20:59 Last Admin: 06/13/17 09:04 Dose: Not Given Hydralazine HCl (Apresoline) 10 mg PO TID [facility] Stop: 08/11/17 08:59 Last Admin: 06/13/17 08:54 Dose: 10 mg Hydralazine HCl (Apresoline 20 Mg/Ml) 10 mg IV Q6H PRN PRN Reason: sbp > 160 Stop: 08/10/17 22:59 Last Admin: 06/12/17 23:59 Dose: 10 mg Insulin Aspart (Novolog Insulin Sliding Scale) 0 units SUBQ ACHS NAZIA PRN Reason: Protocol Stop: 08/11/17 07:29 Last Admin: 06/13/17 06:31 Dose: Not Given Isosorbide Dinitrate (Isordil) 10 mg PO TID [facility] Stop: 08/11/17 08:59 Last Admin: 06/13/17 08:53 Dose: 10 mg Lactulose (Cephulac) 15 gm PO BID [facility] Stop: 08/11/17 08:59 Last Admin: 06/13/17 09:03 Dose: Not Given Levothyroxine Sodium (Synthroid) 0.15 mg PO QDAC [facility] Stop: 08/11/17 07:29 Last Admin: 06/13/17 06:31 Dose: 0.15 mg Miscellaneous (Vte Chemical Prophylaxis Screen/ Admission) 1 ea MC PRN PRN PRN Reason: PROTOCOL Stop: 08/11/17 10:12 Miscellaneous (Clinical Monitoring) 1 ea MC DAILY PRN PRN Reason: RENAL Stop: 08/12/17 08:37 Modafinil (Provigil) 200 mg PO BID [facility] Stop: 08/11/17 08:59 Last Admin: 06/13/17 09:04 Dose: Not Given Nitroglycerin (Nitrostat) 0.4 mg SL Q5MIN PRN PRN Reason: Chest Pain Stop: 08/10/17 22:44 Pantoprazole Sodium (Protonix) 40 mg PO DAILY [facility] Stop: 08/11/17 08:59 Last Admin: 06/13/17 08:54 Dose: 40 mg Polyethylene Glycol (Miralax) 17 gm PO DAILY PRN PRN Reason: Constipation Stop: 08/10/17 22:44 Last Admin: 06/12/17 20:39 Dose: 17 gm Zinc Sulfate (Zinc Sulfate) 220 mg PO DAILY [facility] Stop: 08/11/17 08:59 Last Admin: 06/13/17 08:53 Dose: 220 mg General: Alert, Oriented x3 HEENT: Atraumatic Neck: Supple Cardiovascular: Regular rate, Normal S1, Normal S2 Lungs: Clear to auscultation Abdomen: Bowel sounds Extremities: Clubbing - Procedures Procedures: Procedures Procedure Code Date BLOOD TRANSFUSION SERVICE 17116 04/05/17 COLONOSCOPY AND BIOPSY 75497 04/05/17 EGD BIOPSY SINGLE/MULTIPLE 11515 04/05/17 EXCISION OF DUODENUM, ENDO, DIAGN [id number] 04/05/17 EXCISION OF SIGMOID COLON, ENDO, DIAGN [id number] 04/05/17 EXCISION OF STOMACH, ENDO, DIAGN [id number] 04/05/17 FLUOROSCOPY OF SUP VENA CAVA USING L OSM CONTRAST, GUIDANCE [id number] 04/05/17 INSERT TUNNELED CV CATH 45621 04/05/17 INSERTION OF INFUSION DEV INTO SUP VENA CAVA, PERC APPROACH [id number] 04/05/17 PERFORMANCE OF URINARY FILTRATION, <6 HRS/DAY [id number] 04/05/17 TRANSFUSE NONAUT RED BLOOD CELLS IN PERIPH VEIN, PERC [id number] 04/05/17 Assessment/Plan - Assessment Assessment: Anemia ESRD HTN DM - Plan Plan: HD today increase in BP meds
[2017-06-13] MEDS ORDERED: Potassium Chloride 20 mEq ER Tab PO ONE (09:26)
--- NOTE | 2017-06-13 10:33 | General Progress Note ---
Subjective - Review of Systems Service Date: 06/13/17 Subjective: Pt seen and eval. In bed. Status post 2 units prbc's on 06/12/17. No fevers or chills. No falls or sz. He is comfortable. Status post dialysis order. Weak. Objective - Results Result Diagrams: 06/13/17 04:45 06/13/17 04:45 Recent Labs: Laboratory Last Values WBC 9.4 Th/cmm (4.8-10.8) 06/13/17 04:45 RBC 3.12 Mil/cmm (3.80-5.80) L 06/13/17 04:45 Hgb 8.3 gm/dL (12-16) L 06/13/17 04:45 Hct 26.6 % (41.0-60) L 06/13/17 04:45 MCV 85.4 fl (80-99) 06/13/17 04:45 MCH 26.7 pg (27.0-31.0) L 06/13/17 04:45 MCHC Differential 31.3 pg (28.0-36.0) 06/13/17 04:45 RDW 17.2 % (11.5-20.0) 06/13/17 04:45 Plt Count 437 Th/cmm (150-400) H 06/13/17 04:45 MPV 8.4 fl 06/13/17 04:45 Neutrophils % 65.2 % (40.0-80.0) 06/13/17 04:45 Band Neutrophils % 2 % (0-10) 06/12/17 04:30 Lymphocytes % 23.3 % (20.0-50.0) 06/13/17 04:45 Monocytes % 8.5 % (2.0-10.0) 06/13/17 04:45 Eosinophils % 2.4 % (0.0-5.0) 06/13/17 04:45 Basophils % 0.6 % (0.0-2.0) 06/13/17 04:45 Neutrophils (Manual) 68 % (40-80) 06/12/17 04:30 Lymphocytes 23 % (20-50) 06/12/17 04:30 Monocytes 5 % (2-10) 06/12/17 04:30 Eosinophils 2 % (0-5) 06/12/17 04:30 Basophils 0 % (0-3) 06/11/17 21:39 Hypochromia 1+ 06/11/17 21:39 PT 10.8 SECONDS (9.5-11.5) 06/11/17 21:39 INR 1.04 (0.5-1.4) 06/11/17 21:39 PTT (Actin FS) 29.9 SECONDS (26.0-38.0) 06/11/17 21:39 Sodium 137 mEq/L (136-145) 06/13/17 04:45 Potassium 3.3 mEq/L (3.5-5.1) L 06/13/17 04:45 Chloride 96 mEq/L (98-107) L 06/13/17 04:45 Carbon Dioxide 31.7 mEq/L (21.0-31.0) H 06/13/17 04:45 Anion Gap 12.6 (7.0-16.0) 06/13/17 04:45 BUN 34 mg/dL (7-25) H 06/13/17 04:45 Creatinine 4.6 mg/dL (0.7-1.3) H* 06/13/17 04:45 Est GFR ( Amer) TNP 06/13/17 04:45 Est GFR (Non-Af Amer) TNP 06/13/17 04:45 BUN/Creatinine Ratio 7.4 06/13/17 04:45 Glucose 116 mg/dL (70-105) H 06/13/17 04:45 POC Glucose 110 MG/DL (70 - 105) H 06/13/17 06:16 Hemoglobin A1c % 5.1 % (4.0-6.0) 06/12/17 04:30 Calcium 9.6 mg/dL (8.6-10.3) 06/13/17 04:45 Total Bilirubin 0.3 mg/dL (0.3-1.0) 06/11/17 21:39 AST 14 U/L (13-39) 06/11/17 21:39 ALT 4 U/L (7-52) L 06/11/17 21:39 Alkaline Phosphatase 66 U/L (34-104) 06/11/17 21:39 Total Protein 7.2 gm/dL (6.0-8.3) 06/11/17 21:39 Albumin 3.0 gm/dL (4.2-5.5) L 06/11/17 21:39 Globulin 4.2 gm/dL 06/11/17 21:39 Albumin/Globulin Ratio 0.7 (1.0-1.8) L 06/11/17 21:39 Stool Occult Blood NEGATIVE (NEGATIVE) 06/13/17 09:00 Blood Type O POSITIVE 06/11/17 22:22 Antibody Screen NEGATIVE 06/11/17 22:22 Crossmatch See Detail 06/11/17 22:22 - Physical Exam Vitals and I&O: Vital Signs Temp 96.4 F 06/13/17 08:21 Pulse 82 06/13/17 08:54 Resp 18 06/13/17 08:21 BP 195/73 06/13/17 08:54 Pulse Ox 98 06/13/17 08:21 Intake & Output 06/12/17 06/13/17 06/13/17 18:59 06:59 18:59 Intake Total 240 Balance 240 Weight (lbs) 101.151 kg Intake: Oral 240 Other: # Voids 1 # Bowel Movements 1 Stool Characteristics Soft Weight Source Bedscale Active Medications: Current Medications Acetaminophen (Tylenol) 650 mg PO Q6H PRN PRN Reason: HEADACHE/TEMP ABOVE 100F Stop: 08/10/17 22:43 Acetaminophen/Hydrocodone Bitart ([place] 10 Mg/325 Mg) 1 tab PO Q6H PRN PRN Reason: Pain (Severe) Stop: 08/10/17 22:44 Albuterol/Ipratropium (Duoneb Neb) 3 ml HHN Q4HRT PRN PRN Reason: sob Stop: 08/10/17 22:42 Allopurinol (Zyloprim) 100 mg PO DAILY [facility] Stop: 08/11/17 08:59 Last Admin: 06/13/17 08:54 Dose: 100 mg Aspirin (Aspirin Chewable) 81 mg PO DAILY [facility] Stop: 08/11/17 08:59 Last Admin: 06/13/17 08:54 Dose: 81 mg Atorvastatin Calcium (Lipitor) 80 mg PO DAILY [facility] PRN Reason: Protocol Stop: 08/11/17 08:59 Last Admin: 06/13/17 08:54 Dose: 80 mg Calcium Acetate (Phoslo) 667 mg PO TID [facility] Stop: 08/11/17 08:59 Last Admin: 06/13/17 08:53 Dose: 667 mg Cyanocobalamin (Vitamin B12) 100 mcg PO DAILY [facility] Stop: 08/11/17 08:59 Last Admin: 06/13/17 08:54 Dose: 100 mcg Docusate Sodium (Colace) 100 mg PO BID [facility] Stop: 08/11/17 08:59 Last Admin: 06/13/17 08:54 Dose: 100 mg Ferrous Sulfate (Iron) 325 mg PO BID [facility] Stop: 08/11/17 08:59 Last Admin: 06/13/17 08:54 Dose: 325 mg Finasteride (Proscar) 5 mg PO DAILY [facility] PRN Reason: Protocol Stop: 08/11/17 08:59 Last Admin: 06/13/17 08:53 Dose: 5 mg Fish Oil ([place] 3) 1,000 mg PO DAILY [facility] Stop: 08/11/17 08:59 Last Admin: 06/13/17 08:53 Dose: 1,000 mg Heparin Sodium (Porcine) (Heparin) 5,000 units SUBQ Q12HR [facility] Stop: 08/11/17 20:59 Last Admin: 06/13/17 09:04 Dose: Not Given Hydralazine HCl (Apresoline 20 Mg/Ml) 10 mg IV Q6H PRN PRN Reason: sbp > 160 Stop: 08/10/17 22:59 Last Admin: 06/12/17 23:59 Dose: 10 mg Hydralazine HCl (Apresoline) 50 mg PO TID [facility] Stop: 08/12/17 09:25 Insulin Aspart (Novolog Insulin Sliding Scale) 0 units SUBQ ACHS [facility] PRN Reason: Protocol Stop: 08/11/17 07:29 Last Admin: 06/13/17 06:31 Dose: Not Given Isosorbide Dinitrate (Isordil) 10 mg PO TID [facility] Stop: 08/11/17 08:59 Last Admin: 06/13/17 08:53 Dose: 10 mg Lactulose (Cephulac) 15 gm PO BID [facility] Stop: 08/11/17 08:59 Last Admin: 06/13/17 09:03 Dose: Not Given Levothyroxine Sodium (Synthroid) 0.15 mg PO QDAC [facility] Stop: 08/11/17 07:29 Last Admin: 06/13/17 06:31 Dose: 0.15 mg Miscellaneous (Vte Chemical Prophylaxis Screen/ Admission) 1 ea [facility] PRN PRN PRN Reason: PROTOCOL Stop: 08/11/17 10:12 Miscellaneous (Clinical Monitoring) 1 ea [facility] DAILY PRN PRN Reason: RENAL Stop: 08/12/17 08:37 Modafinil (Provigil) 200 mg PO BID [facility] Stop: 08/11/17 08:59 Last Admin: 06/13/17 09:04 Dose: Not Given Nitroglycerin (Nitrostat) 0.4 mg SL Q5MIN PRN PRN Reason: Chest Pain Stop: 08/10/17 22:44 Pantoprazole Sodium (Protonix) 40 mg PO DAILY [facility] Stop: 08/11/17 08:59 Last Admin: 06/13/17 08:54 Dose: 40 mg Polyethylene Glycol (Miralax) 17 gm PO DAILY PRN PRN Reason: Constipation Stop: 08/10/17 22:44 Last Admin: 06/12/17 20:39 Dose: 17 gm Zinc Sulfate (Zinc Sulfate) 220 mg PO DAILY NAZIA Stop: 08/11/17 08:59 Last Admin: 06/13/17 08:53 Dose: 220 mg General: Alert, Oriented x3 HEENT: Atraumatic Neck: Supple Cardiovascular: Regular rate, Normal S1, Normal S2 Lungs: Clear to auscultation Abdomen: Bowel sounds, Soft, no Tender Extremities: Clubbing - Procedures Procedures: Procedures Procedure Code Date BLOOD TRANSFUSION SERVICE 21754 04/05/17 COLONOSCOPY AND BIOPSY 24869 04/05/17 EGD BIOPSY SINGLE/MULTIPLE 81888 04/05/17 EXCISION OF DUODENUM, ENDO, DIAGN [id number] 04/05/17 EXCISION OF SIGMOID COLON, ENDO, DIAGN [id number] 04/05/17 EXCISION OF STOMACH, ENDO, DIAGN [id number] 04/05/17 FLUOROSCOPY OF SUP VENA CAVA USING L OSM CONTRAST, GUIDANCE [id number] 04/05/17 INSERT TUNNELED CV CATH 19752 04/05/17 INSERTION OF INFUSION DEV INTO SUP VENA CAVA, PERC APPROACH [id number] 04/05/17 PERFORMANCE OF URINARY FILTRATION, <6 HRS/DAY [id number] 04/05/17 TRANSFUSE NONAUT RED BLOOD CELLS IN PERIPH VEIN, PERC 25628T2 04/05/17 Assessment/Plan - Assessment Assessment: Severe anemia VMN Hypokalemia ESRD Dyslipid Gout COPD BPH HTN - Plan Plan: Pt had EGD and Colonoscopy in Apr 2017, which showed gastritis, duodenitis, polyps, and diverticulosis. Will start protonix. Status post 2 units prbcs. FU on cbc. PT eval today.
[2017-06-14 05:16] LABS: HEP A AB IGM Negative (Negative); HEP B CORE IGM Negative (Negative); HEP B SURFACE AG QL Negative (Negative); HEP C ANTIBODY <0.1 s/co ratio (0.0-0.9)
[2017-06-14 05:33] LABS: % BASOPHILS 0.3 % (0.0-2.0); % EOSINOPHILS 2.6 % (0.0-5.0); % LYMPHOCYTES 24.1 % (20.0-50.0); % MONOCYTES 7.6 % (2.0-10.0); % NEUTROPHILS 65.4 % (40.0-80.0); EOSINOPHILE ABSOLUTE 0.3 Th/cmm (0.1-0.4); HEMATOCRIT 27.8 % (41.0-60); HEMOGLOBIN 8.7 gm/dL (12-16); LYMPHOCYTE ABSOLUTE 2.6 Th/cmm (1.5-3.0); MEAN CELL VOLUME 86.3 fl (80-99); MEAN CORPUSCULAR HGB CONC 31.2 pg (28.0-36.0); MEAN PLATELET VOLUME 8.3 fl; MONOCYTE ABSOLUTE 0.8 Th/cmm (0.3-1.0); PLATELET COUNT 488 Th/cmm (150-400); RED BLOOD COUNT 3.22 Mil/cmm (3.80-5.80); RED CELL DISTRIBUTION WIDTH 17.3 % (11.5-20.0); WHITE BLOOD COUNT 10.7 Th/cmm (4.8-10.8)
[2017-06-14 05:47] LABS: ANION GAP 13.6 (7.0-16.0); BUN - UREA NITROGEN 23 mg/dL (7-25); CALCIUM SERUM 9.8 mg/dL (8.6-10.3); CARBON DIOXIDE 27.2 mEq/L (21.0-31.0); CHLORIDE 100 mEq/L (98-107); CREATININE - SERUM 3.7 mg/dL (0.7-1.3); GLUCOSE 137 mg/dL (70-105); POTASSIUM SERUM 3.8 mEq/L (3.5-5.1); SODIUM SERUM 137 mEq/L (136-145)
[2017-06-14] MEDS: INSULIN ASPART SLIDING SCALE 100 UNITS/ML UNIT SUBQ SCH ×2 (06:53→12:25)
[2017-06-14] MEDS: Levothyroxine 0.075 Mg Tab PO SCH (06:54)
[2017-06-14] MEDS: Fish Oil 1,000 MG SGL PO SCH (08:52)
[2017-06-14] MEDS: Lactulose 10 Gm/15 mL 30mL UDC PO SCH (08:54)
[2017-06-14] MEDS: Pantoprazole 40 mg EC Tab PO SCH (08:54)
[2017-06-14] MEDS: Aspirin 81mg Chewable Tab PO SCH (08:54)
[2017-06-14] MEDS: Ferrous Sulfate 325 MG TAB PO SCH (08:54)
--- NOTE | 2017-06-14 18:14 | Discharge Summary ---
DATE OF DISCHARGE: 06/14/2017 CAUSE OF ADMISSION: The patient is a pleasant 76-year-old male who is a patient of mine at [facility]. He has history of end-stage renal disease along with anemia, dyslipidemia, diabetes and hypertension. His hemoglobin was 6 and he was sent for further workup and treatment. ADMITTING DIAGNOSES: 1. Severe anemia of chronic illness. 2. Vasomotor nephropathy. 3. Hypokalemia. 4. End-stage renal disease. 5. Dyslipidemia. 6. Gout. 7. Chronic obstructive pulmonary disease. 8. Benign prostatic hypertrophy. 9. Hypertension. DISCHARGE DIAGNOSES: 1. Severe anemia due to gastritis and duodenitis, polyps and diverticulosis. 2. Vasomotor nephropathy. 3. Hypokalemia. 4. End-stage renal disease. 5. Dyslipidemia. 6. Gout. 7. Chronic obstructive pulmonary disease. 8. Benign prostatic hypertrophy. 9. Hypertension. SUMMARY OF HOSPITAL COURSE: The patient's stool occult blood was negative. He has been on Protonix. He had an EGD and colonoscopy done in 04/2017. EGD showed gastritis and duodenitis and colonoscopy showed polyps and diverticulosis. He is status post 2 units PRBCs for blood transfusion. I had ordered one, but here had ordered another one, so he received total of 2. PT evaluation was done. His hemoglobin has been stable. He is stable to be discharged back to the long term facility. PHYSICAL EXAMINATION: VITAL SIGNS: Temperature 96.1 degrees, heart rate is 90, respirations 18, blood pressure 174/53. Currently, no pain. GENERAL: No acute distress, awake, alert, pleasant. HEENT: No acute issues. NECK: Trachea is midline. CARDIOVASCULAR: Regular rate and rhythm. SKIN: No rashes. PSYCHIATRIC: No psychosis or hallucinations. CONSULTS: Dr. Devine for Nephrology. PROCEDURES: He had dialysis done. He received 2 units PRBCs total. LABORATORY DATA: White count is 10.7; hemoglobin is 8.7; platelet count is 488,000. Sodium 137, potassium 3.8, chloride 100, bicarbonate 27.2, BUN 22, creatinine 3.7. PROGNOSIS: Fair. ACTIVITY: As tolerated. DISPOSITION: He is being discharged back to the long term facility. MEDICATIONS: All medication reviewed and reconciled. COMPLICATIONS: None. JOB# [id number]
== END 2017-06-14 15:30 | DRG 393 ==
LOC: ER 19:31 → MSI 22:45 → TELE 22:59
PROVIDERS: ADMIT General Practice; ATTEND General Practice
PROC: 30233N1 Transfusion of Nonautologous Red Blood Cells into Peripheral Vein, Percutaneous Approach (ICD-10-PCS; principal; 2017-06-12)
PROC: 5A1D70Z Performance of Urinary Filtration, Intermittent, Less than 6 Hours Per Day (ICD-10-PCS; 2017-06-13)
DX: K63.5 Polyp of colon (principal); N17.0 Acute kidney failure with tubular necrosis; N18.6 End stage renal disease; I13.2 Hypertensive heart and chronic kidney disease with heart failure and with stage 5 chronic kidney disease, or end stage renal disease; K29.70 Gastritis, unspecified, without bleeding; K57.90 Diverticulosis of intestine, part unspecified, without perforation or abscess without bleeding; K29.80 Duodenitis without bleeding; E87.6 Hypokalemia; Z99.2 Dependence on renal dialysis; E78.5 Hyperlipidemia, unspecified; M10.9 Gout, unspecified; D63.8 Anemia in other chronic diseases classified elsewhere; Z96.612 Presence of left artificial shoulder joint; Z96.611 Presence of right artificial shoulder joint; Z96.653 Presence of artificial knee joint, bilateral; R26.81 Unsteadiness on feet; J44.9 Chronic obstructive pulmonary disease, unspecified; N40.0 Benign prostatic hyperplasia without lower urinary tract symptoms; E11.22 Type 2 diabetes mellitus with diabetic chronic kidney disease; I25.10 Atherosclerotic heart disease of native coronary artery without angina pectoris; I50.9 Heart failure, unspecified; Z83.3 Family history of diabetes mellitus; Z88.5 Allergy status to narcotic agent; Z88.0 Allergy status to penicillin
CPT/HCPCS: 36415-UA; 71045-TC; 80048-TC; 80053-TC; 80074-90; 82270-TC; 82948-90; 83036-90; 85007-TC; 85025-TC; 85027-TC; 85610-TC; 86850-TC; 86900-TC; 86901-TC; 86922-TC; 90937; 93005; 94760; J0360; J1644; J1815; J7030; P9016; Z7610

== ENCOUNTER 2017-07-23 12:38 | Inpatient (IN) | payer MEDICARE, MEDICAID ==
--- NOTE | 2017-07-23 12:57 | ED Physician Chart ---
ED Chief Complaint/HPI - Patient Information Date Seen:: 07/23/17 Time Seen:: 12:30 Chief Complaint:: AMS History of Present Illness:: onset x 2 days of AMS and ALOC with abnormal lab tests today; no report of trauma, H/As, S/T, neck pain, C/P, SOB, Abd. Pain, A/N/V/D/C, fever, chills, or urinary s/s Allergies:: Allergies Allergy/AdvReac Type Severity Reaction Status Date / Time morphine Allergy Verified 06/11/17 20:47 Penicillins [PCN] Allergy Verified 06/11/17 20:47 Historian:: Patient, EMS Review:: Nurse's Note Reviewed, Old Chart Reviewed, EMS run form Reviewed ED Review of Systems - Review of Systems General/Constitutional: Fever, No chills, No weight loss, No weakness, No diaphoresis, No edema, No loss of appetite Skin: No skin lesions, No rash, No bruising Head: No headache, No light-headedness Eyes: No loss of vision, No pain, No diplopia ENT: No earache, No nasal drainage, No sore throat, No tinnitus Neck: No neck pain, No swelling, No thyromegaly, No stiffness, No mass noted Cardio Vascular: No chest pain, No palpitations, No PND, No orthopnea, No edema Pulmonary: No SOB, Cough, No sputum, No wheezing GI: No nausea, No vomiting, No diarrhea, No pain, No melena, No hematochezia, No constipation, No hematemesis G/U: No dysuria, No frequency, No hematuria, No nacturia Musculoskeletal: No bone or joint pain, No back pain, No muscle pain Endocrine: No polyuria, No polydipsia Psychiatric: No prior psych history, No depression, No anxiety, No suicidal ideation, No homicidal ideation, No auditory hallucination, No visual hallucination Hematopoietic: No bruising, No lymphadenopathy Allergic/Immuno: No urticaria, No angioedema Neurological: No syncope, No focal symptoms, No weakness, No paresthesia, No headache, No seizure, No dizziness, Confusion, No vertigo ED Past Medical History - Past Medical History Obtainable: Yes Past Medical History: HTN, Dyslipidemia, ESRD, Arthritis Family History: Diabetes Melitus, HTN Social History: Non Smoker, No Alcohol, No Drug Use, , Care Facility Surgical History: None Psychiatricy History: None Medication: Reviewed Family Medical History - Family Member Mother History Unknown: Yes ED Physical Exam - Physical Examination General/Constitutional: Awake, Well-developed, well-nourished, Alert, No distress, GCS 15, Non-toxic appearing, Ambulatory Head: Atraumatic Eyes: Lids, conjuctiva normal, PERRL, EOMI Skin: Nl inspection, No rash, No skin lesions, No ecchymosis, Well hydrated, No lymphadenopathy ENMT: External ears, nose nl, TM canals nl, Nasal exam nl, Lips, teeth, gums nl , Oropharynx nl, Tonsils nl Neck: Nontender, Full ROM w/o pain, No JVD, No nuchal rigidity, No bruit, No mass, No stridor Respiratory: Nl effort/Exclusion, Clear to Auscultation, No Wheeze/Rhonchi/Rales Cardio Vascular: RRR, No murmur, gallop, rubs, NL S1 S2, Carotid/Femoral/Distal pulses equal bilaterally GI: No tenderness/rebounding/guarding, No organomegaly, No hernia, Normal BS's, Nondistended, No mass/bruits, No McBurney tenderness : No CVA tenderness Extremities: No tenderness or effusion, Full ROM, normal strength in all extremities, No edema, Normal digits & nails Neuro/Psych: Alert/oriented, DTR's symmetric, Normal sensory exam, Normal motor strength, Judgement/insight normal, Mood normal, Normal gait, No focal deficits Misc: Normal back, No paraspinal tenderness ED Labs/Radiology/EKG Results - Lab Results Comments:: H/H: 7.8/24.1; BUN: 50; Cr: 6.0 - Radiology Results Comments:: NAD - EKG Interpretations EKG Time:: 13:11 Rate & Rhythm: 69; NSR Comments:: non-specific st-t changes ED Septic Shock - . Is Septic Shock (SBP<90, OR Lactate>4 mmol\L) present?: No ED Reassessment (Disposition) - Reassessment Reassessment Condition:: Improved - Diagnosis Diagnosis:: Dx: ALOC; AMS; Anemia; ESRD - Aftercare/Follow up Instructions Aftercare/Follow-Up Instructions:: Counseled pt regarding lab results/diagnosis & need follow up, Counseled pt & family regarding lab results/diagnosis & need follow up - Patient Disposition Discharge/Transfer:: Acute Care w/in this hosp Accepting Physician:: Dr. Mustafa Time Called:: 1440 Time Responded:: 14:40 Admitted to:: Telemetry Spoke to:: Dr. Mustafa Admitting Medical Physician:: Dr. Mustafa Condition at Disposition:: Stable, Improved
[2017-07-23 13:23] LABS: INR 1.09 (0.5-1.4); PROTHROMBIN TIME (TEST) 11.3 SECONDS (9.5-11.5)
[2017-07-23 13:29] LABS: ALB/GLOB RATIO 0.8 (1.0-1.8); ALBUMIN 2.9 gm/dL (4.2-5.5); ALKALINE PHOSPHATASE 62 U/L (34-104); ANION GAP 14.1 (7.0-16.0); BILIRUBIN,TOTAL 0.4 mg/dL (0.3-1.0); BUN - UREA NITROGEN 50 mg/dL (7-25); CALCIUM SERUM 9.2 mg/dL (8.6-10.3); CARBON DIOXIDE 32.9 mEq/L (21.0-31.0); CHLORIDE 94 mEq/L (98-107); CREATININE KINASE 11 U/L (30-223); GLUCOSE 113 mg/dL (70-105); SGOT 11 U/L (13-39); SGPT/ALT 5 U/L (7-52); SODIUM SERUM 137 mEq/L (136-145); TOTAL PROTEIN,SERUM 6.6 gm/dL (6.0-8.3); TROP I 0.02 ng/mL (0.01-0.05)
[2017-07-23 13:48] LABS: % EOSINOPHILS 3.3 % (0.0-5.0); BASOPHILE ABSOLUTE 0.1 Th/cumm (0-0.2); EOSINOPHILE ABSOLUTE 0.3 Th/cmm (0.1-0.4); MEAN PLATELET VOLUME 7.7 fl
[2017-07-23 13:50] LABS: % BASOPHILS 1.1 % (0.0-2.0); % LYMPHOCYTES 28.3 % (20.0-50.0); % MONOCYTES 6.4 % (2.0-10.0); % NEUTROPHILS 60.9 % (40.0-80.0); HEMATOCRIT 24.1 % (41.0-60); LYMPHOCYTE ABSOLUTE 2.6 Th/cmm (1.5-3.0); MEAN CELL VOLUME 87.3 fl (80-99); MEAN CORPUSCULAR HEMOGLOBIN 28.2 pg (27.0-31.0); MEAN CORPUSCULAR HGB CONC 32.3 pg (28.0-36.0); MONOCYTE ABSOLUTE 0.6 Th/cmm (0.3-1.0); NEUTROPHILE ABSOLUTE 5.7 Th/cmm (1.8-8.0); PLATELET COUNT 406 Th/cmm (150-400); RED BLOOD COUNT 2.76 Mil/cmm (3.80-5.80); RED CELL DISTRIBUTION WIDTH 19.3 % (11.5-20.0); WHITE BLOOD COUNT 9.3 Th/cmm (4.8-10.8)
[2017-07-23 13:51] LABS: HEMOGLOBIN 7.8 gm/dL (12-16)
[2017-07-23] MEDS ORDERED: NITROGLYCERIN OINT 2% 1 INCH PACKET TP STA (14:25)
--- NOTE | 2017-07-23 14:32 | Diagnostic Imaging Report ---
Portable chest x-ray HISTORY: Pain The heart size appears somewhat generous. Atherosclerotic vascular calcification seen in the aorta. No acute focal pulmonary processes. Bilateral shoulder arthroplasties are seen. IMPRESSION: 1. No acute focal pulmonary processes 2. Generous heart size with atherosclerotic vascular changes
[2017-07-23] MEDS ORDERED: NITROGLYCERIN OINT 2% 1 INCH PACKET TP ONE (14:36)
[2017-07-23] MEDS ORDERED: APAP/Oxycodone 5/325mg Oral Tab PO PRN (17:36)
[2017-07-23] MEDS ORDERED: Potassium Chloride 20 mEq ER Tab PO PRN (17:38)
[2017-07-23] MEDS ORDERED: Mag Sulfate 2gm/50mL Premix 2 GM/50 ML BAG IV PRN (17:38)
[2017-07-23] MEDS ORDERED: Dextrose 50% 50 mL Abboject IVP PRN (17:38)
[2017-07-23] MEDS ORDERED: Morphine Sulfate 4 mg/mL 1mL Syr IVP PRN (17:38)
[2017-07-23] MEDS ORDERED: Potassium Chloride 40 MEQ, Lidocaine 1% 20mL Vial 25 MG in Sodium Chloride 0.9% 250 ML IV PRN (17:38)
[2017-07-23] MEDS: INSULIN ASPART SLIDING SCALE 100 UNITS/ML UNIT SUBQ SCH (23:14)
[2017-07-24 05:43] LABS: INR 1.09 (0.5-1.4); PROTHROMBIN TIME (TEST) 11.3 SECONDS (9.5-11.5)
[2017-07-24 05:48] LABS: ANION GAP 17.5 (7.0-16.0); BUN - UREA NITROGEN 60 mg/dL (7-25); CALCIUM SERUM 9.1 mg/dL (8.6-10.3); CARBON DIOXIDE 28.7 mEq/L (21.0-31.0); CHLORIDE 95 mEq/L (98-107); GLUCOSE 104 mg/dL (70-105); POTASSIUM SERUM 4.2 mEq/L (3.5-5.1); SODIUM SERUM 137 mEq/L (136-145)
[2017-07-24 06:10] LABS: BASOPHILE ABSOLUTE 0.1 Th/cumm (0-0.2); LYMPHOCYTE ABSOLUTE 2.6 Th/cmm (1.5-3.0); MEAN PLATELET VOLUME 7.8 fl; NEUTROPHILE ABSOLUTE 5.9 Th/cmm (1.8-8.0); WHITE BLOOD COUNT 9.6 Th/cmm (4.8-10.8)
[2017-07-24 06:15] LABS: % BASOPHILS 0.7 % (0.0-2.0); % EOSINOPHILS 3.8 % (0.0-5.0); % LYMPHOCYTES 27.5 % (20.0-50.0); % MONOCYTES 6.6 % (2.0-10.0); % NEUTROPHILS 61.4 % (40.0-80.0); EOSINOPHILE ABSOLUTE 0.4 Th/cmm (0.1-0.4); MEAN CELL VOLUME 87.6 fl (80-99); MEAN CORPUSCULAR HEMOGLOBIN 28.1 pg (27.0-31.0); MEAN CORPUSCULAR HGB CONC 32.1 pg (28.0-36.0); MONOCYTE ABSOLUTE 0.6 Th/cmm (0.3-1.0); PLATELET COUNT 404 Th/cmm (150-400); RED BLOOD COUNT 2.71 Mil/cmm (3.80-5.80)
[2017-07-24 06:43] LABS: HEMATOCRIT 23.7 % (41.0-60); HEMOGLOBIN 7.6 gm/dL (12-16)
[2017-07-24] MEDS: INSULIN ASPART SLIDING SCALE 100 UNITS/ML UNIT SUBQ SCH ×7 (07:56→21:59)
--- NOTE | 2017-07-24 09:23 | Consultation ---
Consult Note - Consult Note Service Date: 07/24/17 Referring Physician: Diaz Mustafa Consult Note: PHYSICIAN Consultation Note: Date of Admission: 07/23/17 Purpose of Consultation: ESRD CONTINUE HD SUPPORT Chief Complaint: ALOC History of Present Illness: Patient JUANIS MONTESINOS was admitted to [facility] with ALOC Past Medical History: Diagnoses ANEMIA, UNSPECIFIED (07/23/17) HYPERLIPIDEMIA, UNSPECIFIED (07/23/17) HYP CHR KIDNEY DISEASE W STAGE 5 CHR KIDNEY DISEASE OR ESRD (07/23/17) END STAGE RENAL DISEASE (07/23/17) ALTERED MENTAL STATUS, UNSPECIFIED (07/23/17) Allergies Allergy/AdvReac Type Severity Reaction Status Date / Time morphine Allergy Verified 06/11/17 20:47 Penicillins [PCN] Allergy Verified 06/11/17 20:47 Vital Signs Temp 96.8 F 07/24/17 07:39 Pulse 73 07/24/17 08:16 Resp 17 07/24/17 07:39 BP 200/98 07/24/17 08:16 Pulse Ox 95 07/24/17 07:39 Laboratory Results - last 24 hr 07/23/17 07/24/17 07/24/17 22:22 05:06 05:06 WBC 9.6 RBC 2.71 L Hgb 7.6 L* Hct 23.7 L MCV 87.6 MCH 28.1 MCHC Differential 32.1 RDW 19.0 Plt Count 404 H MPV 7.8 Neutrophils % 61.4 Lymphocytes % 27.5 Monocytes % 6.6 Eosinophils % 3.8 Basophils % 0.7 PT INR PTT (Actin FS) Fibrinogen D-Dimer Sodium 137 Potassium 4.2 Chloride 95 L Carbon Dioxide 28.7 Anion Gap 17.5 H BUN 60 H Creatinine 7.0 H* Est GFR ( Amer) TNP Est GFR (Non-Af Amer) TNP BUN/Creatinine Ratio 8.6 Glucose 104 POC Glucose 173 H Calcium 9.1 07/24/17 05:06 WBC RBC Hgb Hct MCV MCH MCHC Differential RDW Plt Count 407 MPV Neutrophils % Lymphocytes % Monocytes % Eosinophils % Basophils % PT 11.3 INR 1.09 PTT (Actin FS) 29.1 Fibrinogen 486.0 H D-Dimer 4800 H Sodium Potassium Chloride Carbon Dioxide Anion Gap BUN Creatinine Est GFR ( Amer) Est GFR (Non-Af Amer) BUN/Creatinine Ratio Glucose POC Glucose Calcium Home Medication Medication Instructions Recorded Type Aspirin [Aspirin Chewable] 81 mg PO DAILY 04/05/17 History Finasteride [Proscar] 5 mg PO DAILY 04/05/17 History Levothyroxine Sodium 150 mcg PO DAILY 04/05/17 History Modafinil 200 mg PO BID 04/05/17 History Allopurinol [Zyloprim*] 100 mg PO DAILY 06/11/17 History Atorvastatin Calcium [Lipitor] 80 mg PO HS 06/11/17 History Bumetanide [Bumex] 2 mg PO TID 06/11/17 History Calcium Acetate [Phoslo] 2 cap PO TID 06/11/17 History Cyanocobalamin [Vitamin B12] 1,000 mcg PO DAILY 06/11/17 History Ferrous Sulfate [Iron] 325 mg PO BID 06/11/17 History Fish Oil [[place] 3] 1,000 mg PO DAILY 06/11/17 History Pantoprazole [Protonix] 40 mg PO DAILY ect 06/14/17 Rx Ascorbate Calcium [Vitamin C] 500 mg PO BID 07/23/17 History Carvedilol [Coreg] 12.5 mg PO BID 07/23/17 History Cholecalciferol (Vit D3) [Vitamin 2,000 iu PO DAILY 07/23/17 History D3] Folic Acid/Vit Bcomp,C 0.8 mg PO DAILY 07/23/17 History [Nephro-Kandy Tablet] Insulin Aspart Sliding Scale See Protocol SUBQ ACHS 07/23/17 History [NovoLOG INSULIN SLIDING SCALE] Lactulose [Cephulac] 20 gm PO DAILY 07/23/17 History Oxycodone HCl/Acetaminophen 1 tab PO Q8H PRN 07/23/17 History [Endocet 5-325 Tablet] Current Medications Generic Name Dose Route Start Last Admin Trade Name Freq PRN Reason Stop Dose Admin Acetaminophen 650 mg 07/23/17 17:38 Tylenol PO 09/21/17 17:37 Q6H PRN HEADACHE/TEMP ABOVE 100F Ascorbic Acid 500 mg 07/24/17 09:00 Vitamin C PO 09/22/17 08:59 BID NAZIA Aspirin 81 mg 07/24/17 09:00 Aspirin Chewable PO 09/22/17 08:59 DAILY NAZIA Bumetanide 2 mg 07/23/17 21:00 07/24/17 00:40 Bumex PO 09/21/17 20:59 2 mg TID NAZIA Administration Calcium Acetate 1,334 mg 07/23/17 21:00 07/23/17 21:00 Phoslo PO 09/21/17 20:59 1,334 mg TIDWM NAZIA Administration Carvedilol 12.5 mg 07/24/17 09:00 Coreg PO 09/22/17 08:59 BID NAZIA Dextrose 50 ml 07/23/17 17:38 D50w IVP 09/21/17 17:37 PRN PRN BLOOD SUGAR BELOW 60 Ferrous Sulfate 325 mg 07/24/17 09:00 Iron PO 09/22/17 08:59 BID NAZIA Finasteride 5 mg 07/24/17 09:00 Proscar PO 09/22/17 08:59 DAILY [facility] Protocol Heparin Sodium (Porcine) 5,000 units 07/23/17 21:00 07/23/17 21:00 Heparin SUBQ 09/21/17 20:59 5,000 units Q12HR NAZIA Administration Potassium Chloride 40 meq/ 272.5 mls @ 68 mls/hr 07/23/17 17:38 Lidocaine HCl 25 mg/ Sodium IV 09/21/17 17:37 Chloride DAILY PRN k level less than 3.2 Magnesium Sulfate 2 gm in 50 mls @ 25 mls/hr 07/23/17 17:38 Magnesium Sulfate Premix IV 09/21/17 17:37 DAILY PRN Magnesium level less than 1.6 Insulin Aspart 0 units 07/23/17 21:00 07/24/17 07:56 Novolog Insulin Sliding Scale SUBQ 09/21/17 20:59 Not Given ACHS NAZIA Protocol Levothyroxine Sodium 0.15 mg 07/24/17 09:00 Synthroid PO 09/22/17 08:59 DAILY NAZIA Lorazepam 1 mg 07/23/17 17:38 Ativan IVP 09/21/17 17:37 Q4H PRN Anxiety Protocol Losartan Potassium 100 mg 07/24/17 08:15 07/24/17 08:16 Cozaar PO 09/22/17 08:14 100 mg DAILY NAZIA Administration Magnesium Oxide 400 mg 07/23/17 17:38 Mag-Oxide PO 09/21/17 17:37 BID PRN Mg less than 1.9 Ondansetron HCl 4 mg 07/23/17 17:38 Zofran IVP 09/21/17 17:37 Q6H PRN Nausea / Vomiting Oxycodone/Acetaminophen 1 tab 07/23/17 17:36 Percocet 5/325mg Oral Tab PO 09/21/17 17:35 Q8H PRN PAIN Potassium Chloride 40 meq 07/23/17 17:38 Klor-Con PO 09/21/17 17:37 DAILY PRN k level less than 3.5 Review of Systems: A 12 point ROS was reviewed with the pertinent positive and negatives noted in the HPI. Social History Smoking Status Never smoker Drug Use No Alcohol Use No Family Medical History Family Medical History Start: 07/23/17 21: 50 Freq: ONCE Status: Active Document 07/23/17 21:50 [email or web address] (Rec: 07/23/17 22:12 [email or web address] [email or web address] -MS4) Family Medical History Mother Age 77 Ethnicity Non- Hx Family Cancer No Hx Family Coronary Artery Disease Yes Hx Family Congestive Heart Failure Yes Hx Family Hypertension Yes Hx Family Stroke No Hx Family Diabetes Yes Hx Family Seizures No Hx Family Dementia No Hx Family AIDS No Hx Family HIV No Hx Family COPD Yes Hx Family Hepatitis Yes Hx Family Tuberculosis No Other Medical History sleep apnee; arthritis; sepsis ; blood infection Physical Exam: General: IN NO DISTRESS HEENT: PABLO EOMI Neck: SUPPLE NO JVD Cardio: S1S2 RRR Respiratory: CLEAR ON BOTH SIDES Abdominal: SOFT NT NON DISTENDED Extremities: NO EDEMA Neurological: ALOC Assessment: ALOC ESRD ANEMIA OF CKD GOUT HTN DM TYPE 2 Plan: CONTINUE TO PROVIDE HD SUPPORT ANEMIA CARE Opal, Seth Devine M.D. [id number]
--- NOTE | 2017-07-24 09:29 | General Progress Note ---
Subjective - Review of Systems Service Date: 07/24/17 Subjective: PT SITTING IN BED AWAITING HD STATES HE NEEDS BLOOD TRANSFUSION Objective - Results Result Diagrams: 07/24/17 05:06 07/24/17 05:06 Recent Labs: Laboratory Last Values WBC 9.6 Th/cmm (4.8-10.8) 07/24/17 05:06 RBC 2.71 Mil/cmm (3.80-5.80) L 07/24/17 05:06 Hgb 7.6 gm/dL (12-16) L* 07/24/17 05:06 Hct 23.7 % (41.0-60) L 07/24/17 05:06 MCV 87.6 fl (80-99) 07/24/17 05:06 MCH 28.1 pg (27.0-31.0) 07/24/17 05:06 MCHC Differential 32.1 pg (28.0-36.0) 07/24/17 05:06 RDW 19.0 % (11.5-20.0) 07/24/17 05:06 Plt Count 404 Th/cmm (150-400) H 07/24/17 05:06 MPV 7.8 fl 07/24/17 05:06 Neutrophils % 61.4 % (40.0-80.0) 07/24/17 05:06 Lymphocytes % 27.5 % (20.0-50.0) 07/24/17 05:06 Monocytes % 6.6 % (2.0-10.0) 07/24/17 05:06 Eosinophils % 3.8 % (0.0-5.0) 07/24/17 05:06 Basophils % 0.7 % (0.0-2.0) 07/24/17 05:06 Plt Count 407 Th/cmm (150-750) 07/24/17 05:06 PT 11.3 SECONDS (9.5-11.5) 07/24/17 05:06 INR 1.09 (0.5-1.4) 07/24/17 05:06 PTT (Actin FS) 29.1 SECONDS (26.0-38.0) 07/24/17 05:06 Fibrinogen 486.0 mg/dL (200.0-400.0) H 07/24/17 05:06 D-Dimer 4800 ng/mL (100-400) H 07/24/17 05:06 Sodium 137 mEq/L (136-145) 07/24/17 05:06 Potassium 4.2 mEq/L (3.5-5.1) 07/24/17 05:06 Chloride 95 mEq/L (98-107) L 07/24/17 05:06 Carbon Dioxide 28.7 mEq/L (21.0-31.0) 07/24/17 05:06 Anion Gap 17.5 (7.0-16.0) H 07/24/17 05:06 BUN 60 mg/dL (7-25) H 07/24/17 05:06 Creatinine 7.0 mg/dL (0.7-1.3) H* 07/24/17 05:06 Est GFR ( Amer) TNP 07/24/17 05:06 Est GFR (Non-Af Amer) TNP 07/24/17 05:06 BUN/Creatinine Ratio 8.6 07/24/17 05:06 Glucose 104 mg/dL (70-105) 07/24/17 05:06 POC Glucose 173 MG/DL (70 - 105) H 07/23/17 22:22 Whole Bld Lactic Acid 0.78 mmol/L (0.60-1.99) 07/23/17 13:00 Calcium 9.1 mg/dL (8.6-10.3) 07/24/17 05:06 Magnesium 2.0 mg/dL (1.9-2.7) 07/23/17 13:00 Total Bilirubin 0.4 mg/dL (0.3-1.0) 07/23/17 13:00 AST 11 U/L (13-39) L 07/23/17 13:00 ALT 5 U/L (7-52) L 07/23/17 13:00 Alkaline Phosphatase 62 U/L (34-104) 07/23/17 13:00 Creatine Kinase 11 U/L (30-223) L 07/23/17 13:00 Troponin I 0.02 ng/mL (0.01-0.05) 07/23/17 13:00 Total Protein 6.6 gm/dL (6.0-8.3) 07/23/17 13:00 Albumin 2.9 gm/dL (4.2-5.5) L 07/23/17 13:00 Globulin 3.7 gm/dL 07/23/17 13:00 Albumin/Globulin Ratio 0.8 (1.0-1.8) L 07/23/17 13:00 - Physical Exam Vitals and I&O: Vital Signs Temp 96.8 F 07/24/17 07:39 Pulse 73 07/24/17 08:16 Resp 17 07/24/17 07:39 BP 200/98 07/24/17 08:16 Pulse Ox 95 07/24/17 07:39 Active Medications: Current Medications Acetaminophen (Tylenol) 650 mg PO Q6H PRN PRN Reason: HEADACHE/TEMP ABOVE 100F Stop: 09/21/17 17:37 Ascorbic Acid (Vitamin C) [address] [facility] Stop: 09/22/17 08:59 Aspirin (Aspirin Chewable) [address] [facility] Stop: 09/22/17 08:59 Bumetanide (Bumex) [address] [facility] Stop: 09/21/17 20:59 Last Admin: 07/24/17 00:40 Dose: 2 mg Calcium Acetate (Phoslo) 1,334 mg PO TIDWM NAZIA Stop: 09/21/17 20:59 Last Admin: 07/23/17 21:00 Dose: 1,334 mg Carvedilol (Coreg) 12.[address] [facility] Stop: 09/22/17 08:59 Dextrose (D50w) 50 ml IVP PRN PRN PRN Reason: BLOOD SUGAR BELOW 60 Stop: 09/21/17 17:37 Ferrous Sulfate (Iron) [address] [facility] Stop: 09/22/17 08:59 Finasteride (Proscar) 5 mg PO DAILY NAZIA PRN Reason: Protocol Stop: 09/22/17 08:59 Heparin Sodium (Porcine) (Heparin) 5,[address] [facility] Stop: 09/21/17 20:59 Last Admin: 07/23/17 21:00 Dose: 5,000 units Potassium Chloride 40 meq/Lidocaine HCl 25 mg/ Sodium Chloride 272.5 mls @ 68 mls/hr IV DAILY PRN PRN Reason: k level less than 3.2 Stop: 09/21/17 17:37 Magnesium Sulfate (Magnesium Sulfate Premix) 2 gm in 50 mls @ 25 mls/hr IV DAILY PRN PRN Reason: Magnesium level less than 1.6 Stop: 09/21/17 17:37 Insulin Aspart (Novolog Insulin Sliding Scale) 0 units SUBQ ACHS NAZIA PRN Reason: Protocol Stop: 09/21/17 20:59 Last Admin: 07/24/17 07:56 Dose: Not Given Levothyroxine Sodium (Synthroid) 0.[address] [facility] Stop: 09/22/17 08:59 Lorazepam (Ativan) 1 mg IVP Q4H PRN; Protocol PRN Reason: Anxiety Stop: 09/21/17 17:37 Losartan Potassium (Cozaar) 100 mg PO DAILY NAZIA Stop: 09/22/17 08:14 Last Admin: 07/24/17 08:16 Dose: 100 mg Magnesium Oxide (Mag-Oxide) 400 mg PO BID PRN PRN Reason: Mg less than 1.9 Stop: 09/21/17 17:37 Ondansetron HCl (Zofran) 4 mg IVP Q6H PRN PRN Reason: Nausea / Vomiting Stop: 09/21/17 17:37 Oxycodone/Acetaminophen (Percocet 5/325mg Oral Tab) 1 tab PO Q8H PRN PRN Reason: PAIN Stop: 09/21/17 17:35 Potassium Chloride (Klor-Con) 40 meq PO DAILY PRN PRN Reason: k level less than 3.5 Stop: 09/21/17 17:37 General: Alert, Oriented x3, Cooperative, No acute distress HEENT: Atraumatic, PERRLA, EOMI Neck: Supple Cardiovascular: Regular rate, Normal S1, Normal S2 Lungs: Clear to auscultation Abdomen: Bowel sounds, Soft, Obese Extremities: no Cyanosis, no Edema - Procedures Procedures: Procedures Procedure Code Date BLOOD TRANSFUSION SERVICE 87249 04/05/17 COLONOSCOPY AND BIOPSY 20121 04/05/17 EGD BIOPSY SINGLE/MULTIPLE 72450 04/05/17 EXCISION OF DUODENUM, ENDO, DIAGN [id number] 04/05/17 EXCISION OF SIGMOID COLON, ENDO, DIAGN [id number] 04/05/17 EXCISION OF STOMACH, ENDO, DIAGN [id number] 04/05/17 FLUOROSCOPY OF SUP VENA CAVA USING L OSM CONTRAST, GUIDANCE [id number] 04/05/17 INSERT TUNNELED CV CATH 83001 04/05/17 INSERTION OF INFUSION DEV INTO SUP VENA CAVA, PERC APPROACH [id number] 04/05/17 PERFORMANCE OF URINARY FILTRATION, <6 HRS/DAY [id number] 06/11/17 TRANSFUSE NONAUT RED BLOOD CELLS IN PERIPH VEIN, [facility] [id number] 06/11/17 Assessment/Plan - Problem List Patient Problems: All Active Problems LOW HB 6.8 (Acute) - Assessment Assessment: ANEMIA ESRD HTN COPD HYPERLIPIDEMIA COPD GOUT BPH - Plan Plan: HD TODAY PLUS BLOOD TRANSFUSION
[2017-07-24] MEDS: Aspirin 81mg Chewable Tab PO SCH (10:14)
[2017-07-24] MEDS: Ferrous Sulfate 325 MG TAB PO SCH ×2 (10:14→17:02)
[2017-07-24] MEDS: Levothyroxine 0.075 Mg Tab PO SCH (10:15)
[2017-07-24] MEDS ORDERED: Dextrose 50% 50 mL Abboject IVP PRN (10:42)
--- NOTE | 2017-07-24 11:20 | History & Physical ---
ADMIT DATE: 07/23/2017 CHIEF COMPLAINT: Severe anemia, weakness. HISTORY OF PRESENT ILLNESS: The patient is a pleasant 76-year-old male. He has a history of end-stage renal disease, anemia, and malnutrition and hypertension. At the facility, he was found to have accelerated hypertension and severe anemia. He was sent to the hospital for further workup and treatment. PAST MEDICAL HISTORY: Significant for anemia, end-stage renal disease, hypertension and unsteady gait and possibly diabetes along with DJD. SOCIAL HISTORY: Denies any alcohol, tobacco or drug abuse. He lives at [facility]. FAMILY HISTORY: Noncontributory. ALLERGIES: No known drug allergies. PAST SURGICAL HISTORY: Positive for bilateral knee replacement, bilateral shoulder surgery and dialysis access placement. He has history of severe arthritis and DJD of the knees, shoulders and hips. MEDICATIONS: All medications reviewed and reconciled. REVIEW OF SYSTEMS: GENERAL: Positive recent fatigue and decreased appetite. HEENT: No recent head trauma, change in vision, taste, hearing, or smell. ORAL: No recent pain or discharge. NECK: No recent tracheal deviation. ABDOMEN: No recent pain or distension. SKIN: No recent rashes. MUSCULOSKELETAL: Positive for unsteady gait and decreased range of motion of the hips, knees and shoulders. PSYCHIATRIC: No history of psychosis, hallucination. NEUROLOGIC: No history of stroke or seizure. NEPHRO: He has history of end-stage renal disease. CARDIOVASCULAR: He has history of hypertension. PHYSICAL EXAMINATION: VITAL SIGNS: Temperature is 96.8 degrees, heart rate is 82, respirations 17, blood pressure 200/98. Currently, no pain. GENERAL: No acute distress, awake, alert, pleasant. HEENT: No acute issues. NECK: Trachea is midline. CARDIOVASCULAR: The patient has been experiencing cardiac arrhythmia since last night. He has had an AV block as well. ABDOMEN: Nontender, nondistended. SKIN: No rashes. MUSCULOSKELETAL: Decreased muscle strength in upper and lower extremities. RESPIRATORY: Decreased breath sounds bilaterally. NEUROLOGIC: Stable. PSYCHIATRIC: No psychosis or hallucinations. GENITOURINARY: No hematuria is noted. LABORATORY DATA: Sodium 137, potassium 4.0, chloride 94, bicarbonate 32.9, BUN 50, creatinine 6.0. Glucose 113, previous notes 173. AST is 11, ALT is 5, albumin is 2.9. INR is 1.09. Chest x-ray is clear. ASSESSMENT: 1. Cardiac arrhythmia. 2. Bilateral knee degenerative joint disease. 3. Severe anemia. 4. Vasomotor nephropathy. 5. Severe malnutrition. 6. Accelerated hypertension. 7. Hypothyroidism. PLAN: I have started him on p.r.n. clonidine. Dr. Devine already saw the patient. The patient will need to be dialyzed. Blood transfusion has been ordered. Also, the patient is in cardiac arrhythmia. He has been experiencing first-degree AV block as well. Cardiology has been consulted. Continue telemetry monitoring. Continue pain control and his jail medications. He is on fingerstick blood sugars and regular insulin sliding scale. Continue heparin for prophylaxis. Prognosis is guarded. JOB# [id number]
[2017-07-24] MEDS: NIFEdipine 30 mg ER Tab PO SCH (14:35)
--- NOTE | 2017-07-25 07:34 | General Progress Note ---
Subjective - Review of Systems Service Date: 07/25/17 Subjective: Pt seen and eval. Awake, alert, pleasant. Had 1 unit PRBC on 07/24/17. He had EGD and Colonoscopy earlier this year, and he had Gastritis. Scheduled for dialysis today. No n,v,d or cp. No falls or sz. No cough. No acute pain. Objective - Results Result Diagrams: 07/24/17 05:06 07/24/17 05:06 Recent Labs: Laboratory Last Values WBC 9.6 Th/cmm (4.8-10.8) 07/24/17 05:06 RBC 2.71 Mil/cmm (3.80-5.80) L 07/24/17 05:06 Hgb 7.6 gm/dL (12-16) L* 07/24/17 05:06 Hct 23.7 % (41.0-60) L 07/24/17 05:06 MCV 87.6 fl (80-99) 07/24/17 05:06 MCH 28.1 pg (27.0-31.0) 07/24/17 05:06 MCHC Differential 32.1 pg (28.0-36.0) 07/24/17 05:06 RDW 19.0 % (11.5-20.0) 07/24/17 05:06 Plt Count 404 Th/cmm (150-400) H 07/24/17 05:06 MPV 7.8 fl 07/24/17 05:06 Neutrophils % 61.4 % (40.0-80.0) 07/24/17 05:06 Lymphocytes % 27.5 % (20.0-50.0) 07/24/17 05:06 Monocytes % 6.6 % (2.0-10.0) 07/24/17 05:06 Eosinophils % 3.8 % (0.0-5.0) 07/24/17 05:06 Basophils % 0.7 % (0.0-2.0) 07/24/17 05:06 Plt Count 407 Th/cmm (150-750) 07/24/17 05:06 PT 11.3 SECONDS (9.5-11.5) 07/24/17 05:06 INR 1.09 (0.5-1.4) 07/24/17 05:06 PTT (Actin FS) 29.1 SECONDS (26.0-38.0) 07/24/17 05:06 Fibrinogen 486.0 mg/dL (200.0-400.0) H 07/24/17 05:06 D-Dimer 4800 ng/mL (100-400) H 07/24/17 05:06 Sodium 137 mEq/L (136-145) 07/24/17 05:06 Potassium 4.2 mEq/L (3.5-5.1) 07/24/17 05:06 Chloride 95 mEq/L (98-107) L 07/24/17 05:06 Carbon Dioxide 28.7 mEq/L (21.0-31.0) 07/24/17 05:06 Anion Gap 17.5 (7.0-16.0) H 07/24/17 05:06 BUN 60 mg/dL (7-25) H 07/24/17 05:06 Creatinine 7.0 mg/dL (0.7-1.3) H* 07/24/17 05:06 Est GFR ( Amer) TNP 07/24/17 05:06 Est GFR (Non-Af Amer) TNP 07/24/17 05:06 BUN/Creatinine Ratio 8.6 07/24/17 05:06 Glucose 104 mg/dL (70-105) 07/24/17 05:06 POC Glucose 143 MG/DL (70 - 105) H 07/24/17 21:50 Whole Bld Lactic Acid 0.78 mmol/L (0.60-1.99) 07/23/17 13:00 Calcium 9.1 mg/dL (8.6-10.3) 07/24/17 05:06 Magnesium 2.0 mg/dL (1.9-2.7) 07/23/17 13:00 Total Bilirubin 0.4 mg/dL (0.3-1.0) 07/23/17 13:00 AST 11 U/L (13-39) L 07/23/17 13:00 ALT 5 U/L (7-52) L 07/23/17 13:00 Alkaline Phosphatase 62 U/L (34-104) 07/23/17 13:00 Creatine Kinase 11 U/L (30-223) L 07/23/17 13:00 Troponin I 0.02 ng/mL (0.01-0.05) 07/23/17 13:00 Total Protein 6.6 gm/dL (6.0-8.3) 07/23/17 13:00 Albumin 2.9 gm/dL (4.2-5.5) L 07/23/17 13:00 Globulin 3.7 gm/dL 07/23/17 13:00 Albumin/Globulin Ratio 0.8 (1.0-1.8) L 07/23/17 13:00 Blood Type O POSITIVE 07/24/17 10:20 Antibody Screen NEGATIVE 07/24/17 10:20 Crossmatch See Detail 07/24/17 10:20 - Physical Exam Vitals and I&O: Vital Signs Temp 96.6 F 07/24/17 16:00 Pulse 87 07/24/17 17:01 Resp 19 07/24/17 16:00 BP 178/85 07/24/17 17:01 Pulse Ox 97 07/24/17 16:00 Intake & Output 07/24/17 07/25/17 07/25/17 18:59 06:59 18:59 Intake Total 650 500 Balance 650 500 Weight (lbs) 108.862 kg 108.862 kg Intake: Oral 400 500 Blood Product 250 Other: # Voids 100 Weight Source Bedscale Bedscale Active Medications: Current Medications Acetaminophen (Tylenol) 650 mg PO Q6H PRN PRN Reason: HEADACHE/TEMP ABOVE 100F Stop: 09/21/17 17:37 Ascorbic Acid (Vitamin C) 500 mg PO BID [facility] Stop: 09/22/17 08:59 Last Admin: 07/24/17 17:01 Dose: 500 mg Aspirin (Aspirin Chewable) 81 mg PO DAILY [facility] Stop: 09/22/17 08:59 Last Admin: 07/24/17 10:14 Dose: 81 mg Bumetanide (Bumex) 2 mg PO TID [facility] Stop: 09/21/17 20:59 Last Admin: 07/24/17 21:00 Dose: 2 mg Calcium Acetate (Phoslo) 1,334 mg PO TIDWM [facility] Stop: 09/21/17 20:59 Last Admin: 07/24/17 17:00 Dose: 1,334 mg Carvedilol (Coreg) 12.5 mg PO BID [facility] Stop: 09/22/17 08:59 Last Admin: 07/24/17 17:01 Dose: 12.5 mg Dextrose (D50w) 50 ml IVP PRN PRN PRN Reason: BLOOD SUGAR BELOW 60 Stop: 09/21/17 17:37 Dextrose (D50w) 50 ml IVP PRN PRN PRN Reason: BLOOD SUGAR BELOW 60 Stop: 09/22/17 10:41 Ferrous Sulfate (Iron) 325 mg PO BID [facility] Stop: 09/22/17 08:59 Last Admin: 07/24/17 17:02 Dose: 325 mg Finasteride (Proscar) 5 mg PO DAILY [facility] PRN Reason: Protocol Stop: 09/22/17 08:59 Last Admin: 07/24/17 10:14 Dose: 5 mg Heparin Sodium (Porcine) (Heparin) 5,000 units SUBQ Q12HR [facility] Stop: 09/21/17 20:59 Last Admin: 07/24/17 21:40 Dose: 5,000 units Potassium Chloride 40 meq/Lidocaine HCl 25 mg/ Sodium Chloride 272.5 mls @ 68 mls/hr IV DAILY PRN PRN Reason: k level less than 3.2 Stop: 09/21/17 17:37 Magnesium Sulfate (Magnesium Sulfate Premix) 2 gm in 50 mls @ 25 mls/hr IV DAILY PRN PRN Reason: Magnesium level less than 1.6 Stop: 09/21/17 17:37 Insulin Aspart (Novolog Insulin Sliding Scale) 0 units SUBQ ACHS [facility] PRN Reason: Protocol Stop: 09/22/17 11:29 Last Admin: 07/24/17 21:59 Dose: Not Given Levothyroxine Sodium (Synthroid) 0.15 mg PO DAILY [facility] Stop: 09/22/17 08:59 Last Admin: 07/24/17 10:15 Dose: 0.15 mg Lorazepam (Ativan) 1 mg IVP Q4H PRN; Protocol PRN Reason: Anxiety Stop: 09/21/17 17:37 Losartan Potassium (Cozaar) 100 mg PO DAILY [facility] Stop: 09/22/17 08:14 Last Admin: 07/24/17 08:16 Dose: 100 mg Magnesium Oxide (Mag-Oxide) 400 mg PO BID PRN PRN Reason: Mg less than 1.9 Stop: 09/21/17 17:37 Last Admin: 07/24/17 10:15 Dose: 400 mg Mupirocin (Bactroban Oint) 1 appl NS BID [facility] Stop: 07/29/17 17:01 Nifedipine (Procardia Xl) 60 mg PO DAILY [facility] Stop: 09/22/17 12:59 Last Admin: 07/24/17 14:35 Dose: 60 mg Ondansetron HCl (Zofran) 4 mg IVP Q6H PRN PRN Reason: Nausea / Vomiting Stop: 09/21/17 17:37 Oxycodone/Acetaminophen (Percocet 5/325mg Oral Tab) 1 tab PO Q8H PRN PRN Reason: PAIN Stop: 09/21/17 17:35 Last Admin: 07/24/17 23:30 Dose: 1 tab Potassium Chloride (Klor-Con) 40 meq PO DAILY PRN PRN Reason: k level less than 3.5 Stop: 09/21/17 17:37 Last Admin: 07/24/17 10:15 Dose: 40 meq General: Alert, Oriented x3, Cooperative, No acute distress HEENT: Atraumatic, PERRLA, EOMI Neck: Supple Cardiovascular: Regular rate, Normal S1, Normal S2 Lungs: Clear to auscultation Abdomen: Bowel sounds, Soft, Obese Extremities: no Cyanosis, no Edema - Procedures Procedures: Procedures Procedure Code Date BLOOD TRANSFUSION SERVICE 37606 04/05/17 COLONOSCOPY AND BIOPSY 49688 04/05/17 EGD BIOPSY SINGLE/MULTIPLE 94370 04/05/17 EXCISION OF DUODENUM, ENDO, DIAGN [id number] 04/05/17 EXCISION OF SIGMOID COLON, ENDO, DIAGN [id number] 04/05/17 EXCISION OF STOMACH, ENDO, DIAGN [id number] 04/05/17 FLUOROSCOPY OF SUP VENA CAVA USING L OSM CONTRAST, GUIDANCE [id number] 04/05/17 INSERT TUNNELED CV CATH [id number] 04/05/17 INSERTION OF INFUSION DEV INTO SUP VENA CAVA, PERC APPROACH [id number] 04/05/17 PERFORMANCE OF URINARY FILTRATION, <6 HRS/DAY [id number] 06/11/17 TRANSFUSE NONAUT RED BLOOD CELLS IN PERIPH VEIN, PERC [id number] 06/11/17 Assessment/Plan - Problem List Patient Problems: All Active Problems LOW HB 6.8 (Acute) - Assessment Assessment: Severe Anemia Cardiac arrythmia Anemia of ch ill Gastritis VMN with ESRD Sev malnlut Acc HTN Hypothyroidism Obese - Plan Plan: Dialysis today. Status post 1 unit prbc on 07/24/17. FU on CBC. Pt has hx of EGD and Colonoscopy done earlier this year, and he was found to have Gastritis. FU on chem panel. Cardio consulted as well. Nutritional Asmnt/Malnutr-PDOC - Dietary Evaluation Malnutrition Findings (Please click <Entered> for more info): Nutritional Asmnt/Malnutrition Start: 07/24/17 17: 11 Text: Status: Complete Freq: Document 07/24/17 17:11 [facility] (Rec: 07/24/17 17:18 HEN [email or web address]) Nutritional Asmnt/Malnutrition Patient General Information Nutritional Screening High Risk Diagnosis acute renal failure Pertinent Medical Hx/Surgical Hx ESRD, anemia, malnutrition, HTN, possible DM Subjective Information Pt seen sit on bed having lunch. Pt provided food preference. Current Diet Order/ Nutrition Support renal, fluid restriction 1000ml daily Pertinent Medications vit C, iron, novolog, synthroid, kcl Pertinent Labs 07/24 Na 137, K 4.2, Cl 95, BUN 60, Cr 7.0, glucose 104, POC 116 Nutritional Hx/Data Height 1.65 m Height (Calculated Centimeters) 165.1 Current Weight (lbs) 108.862 kg Weight (Calculated Kilograms) 108.9 Weight (Calculated Grams) 802416.2 [place] Body Weight 136 Body Mass Index (BMI) 39.9 Weight Status Obese GI Symptoms GI Symptoms None Last BM not indicated Difficult in: None Skin Integrity/Comment: intact Current %PO Good (75-100%) Estimated Nutritional Goals BEE in Kcals: Adj wt of IBW Calories/Kcals/Kg 30-35 Kcals Calculated 9165-1764 Protein: Adj wt of IBW Protein g/k.2-1.4 Protein Calculated 90-105 Fluid: ml fluid restriction 1000ml daily per MD order Nutritional Problem 1. Problem Problem altered nutrition related labs Etiology hx of ESRD Signs/Symptoms: BUN 60, Cr 7.0 Malnutrition Alert Is there a minimum of two criteria No selected? Query Text:Check all the applicable criteria. A minimum of two criteria are recommended for diagnosis of either severe or non-severe malnutrition. Malnutrition Related to Morbid Obesity Malnutrition related to morbid obesity No Intervention/Recommendation Comments 1. Continue with renal diet as ordered. Food preference updated. 2. Monitor PO intake, wt, labs and skin integrity 3. F/U as moderate risk in 3-5 days, 07/27-07/29 Expected Outcomes/Goals Expected Outcomes/Goals 1. PO intake to meet at least 75% of nutritional needs. 2. Wt stability, skin to remain intact, labs to approach WNL.
[2017-07-25] MEDS: INSULIN ASPART SLIDING SCALE 100 UNITS/ML UNIT SUBQ SCH ×4 (08:03→21:41)
[2017-07-25 08:23] LABS: % BASOPHILS 0.9 % (0.0-2.0); % EOSINOPHILS 3.8 % (0.0-5.0); % LYMPHOCYTES 28.9 % (20.0-50.0); % MONOCYTES 7.5 % (2.0-10.0); % NEUTROPHILS 58.9 % (40.0-80.0); BASOPHILE ABSOLUTE 0.1 Th/cumm (0-0.2); EOSINOPHILE ABSOLUTE 0.4 Th/cmm (0.1-0.4); HEMOGLOBIN 9.3 gm/dL (12-16); LYMPHOCYTE ABSOLUTE 2.7 Th/cmm (1.5-3.0); MEAN CELL VOLUME 88.2 fl (80-99); MEAN CORPUSCULAR HEMOGLOBIN 28.3 pg (27.0-31.0); MEAN PLATELET VOLUME 7.6 fl; MONOCYTE ABSOLUTE 0.7 Th/cmm (0.3-1.0); NEUTROPHILE ABSOLUTE 5.5 Th/cmm (1.8-8.0); PLATELET COUNT 397 Th/cmm (150-400); RED BLOOD COUNT 3.29 Mil/cmm (3.80-5.80); RED CELL DISTRIBUTION WIDTH 18.7 % (11.5-20.0); WHITE BLOOD COUNT 9.4 Th/cmm (4.8-10.8)
[2017-07-25 08:41] LABS: BUN - UREA NITROGEN 75 mg/dL (7-25); CALCIUM SERUM 9.2 mg/dL (8.6-10.3); CHLORIDE 95 mEq/L (98-107); GLUCOSE 106 mg/dL (70-105); SODIUM SERUM 137 mEq/L (136-145)
[2017-07-25 08:44] LABS: CREATININE - SERUM 7.6 mg/dL (0.7-1.3)
[2017-07-25] MEDS ORDERED: Heparin Sod 1,000 Units/mL 10ml HD ONE (09:21)
[2017-07-25] MEDS: Aspirin 81mg Chewable Tab PO SCH (09:37)
[2017-07-25] MEDS: Ferrous Sulfate 325 MG TAB PO SCH ×2 (09:38→17:00)
[2017-07-25] MEDS: Levothyroxine 0.075 Mg Tab PO SCH (09:38)
[2017-07-25] MEDS: NIFEdipine 30 mg ER Tab PO SCH (09:41)
--- NOTE | 2017-07-25 11:13 | General Progress Note ---
Subjective - Review of Systems Service Date: 07/25/17 Subjective: pt on hd s/p transfusion yesterday H/H stable Objective - Results Result Diagrams: 07/25/17 07:50 07/25/17 07:50 Recent Labs: Laboratory Last Values WBC 9.4 Th/cmm (4.8-10.8) 07/25/17 07:50 RBC 3.29 Mil/cmm (3.80-5.80) L 07/25/17 07:50 Hgb 9.3 gm/dL (12-16) L 07/25/17 07:50 Hct 29.0 % (41.0-60) L 07/25/17 07:50 MCV 88.2 fl (80-99) 07/25/17 07:50 MCH 28.3 pg (27.0-31.0) 07/25/17 07:50 MCHC Differential 32.0 pg (28.0-36.0) 07/25/17 07:50 RDW 18.7 % (11.5-20.0) 07/25/17 07:50 Plt Count 397 Th/cmm (150-400) 07/25/17 07:50 MPV 7.6 fl 07/25/17 07:50 Neutrophils % 58.9 % (40.0-80.0) 07/25/17 07:50 Lymphocytes % 28.9 % (20.0-50.0) 07/25/17 07:50 Monocytes % 7.5 % (2.0-10.0) 07/25/17 07:50 Eosinophils % 3.8 % (0.0-5.0) 07/25/17 07:50 Basophils % 0.9 % (0.0-2.0) 07/25/17 07:50 Plt Count 407 Th/cmm (150-750) 07/24/17 05:06 PT 11.3 SECONDS (9.5-11.5) 07/24/17 05:06 INR 1.09 (0.5-1.4) 07/24/17 05:06 PTT (Actin FS) 29.1 SECONDS (26.0-38.0) 07/24/17 05:06 Fibrinogen 486.0 mg/dL (200.0-400.0) H 07/24/17 05:06 D-Dimer 4800 ng/mL (100-400) H 07/24/17 05:06 Sodium 137 mEq/L (136-145) 07/25/17 07:50 Potassium 5.0 mEq/L (3.5-5.1) 07/25/17 07:50 Chloride 95 mEq/L (98-107) L 07/25/17 07:50 Carbon Dioxide 29.0 mEq/L (21.0-31.0) 07/25/17 07:50 Anion Gap 18.0 (7.0-16.0) H 07/25/17 07:50 BUN 75 mg/dL (7-25) H 07/25/17 07:50 Creatinine 7.6 mg/dL (0.7-1.3) H* 07/25/17 07:50 Est GFR ( Amer) TNP 07/25/17 07:50 Est GFR (Non-Af Amer) TNP 07/25/17 07:50 BUN/Creatinine Ratio 9.9 07/25/17 07:50 Glucose 106 mg/dL (70-105) H 07/25/17 07:50 POC Glucose 114 MG/DL (70 - 105) H 07/25/17 08:01 Whole Bld Lactic Acid 0.78 mmol/L (0.60-1.99) 07/23/17 13:00 Calcium 9.2 mg/dL (8.6-10.3) 07/25/17 07:50 Magnesium 2.0 mg/dL (1.9-2.7) 07/23/17 13:00 Total Bilirubin 0.4 mg/dL (0.3-1.0) 07/23/17 13:00 AST 11 U/L (13-39) L 07/23/17 13:00 ALT 5 U/L (7-52) L 07/23/17 13:00 Alkaline Phosphatase 62 U/L (34-104) 07/23/17 13:00 Creatine Kinase 11 U/L (30-223) L 07/23/17 13:00 Troponin I 0.02 ng/mL (0.01-0.05) 07/23/17 13:00 Total Protein 6.6 gm/dL (6.0-8.3) 07/23/17 13:00 Albumin 2.9 gm/dL (4.2-5.5) L 07/23/17 13:00 Globulin 3.7 gm/dL 07/23/17 13:00 Albumin/Globulin Ratio 0.8 (1.0-1.8) L 07/23/17 13:00 Blood Type O POSITIVE 07/24/17 10:20 Antibody Screen NEGATIVE 07/24/17 10:20 Crossmatch See Detail 07/24/17 10:20 - Physical Exam Vitals and I&O: Vital Signs Temp 96.8 F 07/25/17 07:50 Pulse 75 07/25/17 09:42 Resp 20 07/25/17 07:50 BP 150/79 07/25/17 09:42 Pulse Ox 94 07/25/17 07:50 Intake & Output 07/24/17 07/25/17 07/25/17 18:59 06:59 18:59 Intake Total 650 500 Balance 650 500 Weight (lbs) 108.862 kg 108.862 kg Intake: Oral 400 500 Blood Product 250 Other: # Voids 100 Weight Source Bedscale Bedscale Active Medications: Current Medications Acetaminophen (Tylenol) 650 mg PO Q6H PRN PRN Reason: HEADACHE/TEMP ABOVE 100F Stop: 09/21/17 17:37 Ascorbic Acid (Vitamin C) 500 mg PO BID [facility] Stop: 09/22/17 08:59 Last Admin: 07/25/17 09:38 Dose: 500 mg Aspirin (Aspirin Chewable) 81 mg PO DAILY [facility] Stop: 09/22/17 08:59 Last Admin: 07/25/17 09:37 Dose: 81 mg Bumetanide (Bumex) 2 mg PO TID [facility] Stop: 09/21/17 20:59 Last Admin: 07/25/17 09:38 Dose: 2 mg Calcium Acetate (Phoslo) 1,334 mg PO TIDWM [facility] Stop: 09/21/17 20:59 Last Admin: 07/25/17 09:38 Dose: 1,334 mg Carvedilol (Coreg) 12.5 mg PO BID [facility] Stop: 09/22/17 08:59 Last Admin: 07/25/17 09:42 Dose: Not Given Dextrose (D50w) 50 ml IVP PRN PRN PRN Reason: BLOOD SUGAR BELOW 60 Stop: 09/21/17 17:37 Ferrous Sulfate (Iron) 325 mg PO BID [facility] Stop: 09/22/17 08:59 Last Admin: 07/25/17 09:38 Dose: 325 mg Finasteride (Proscar) 5 mg PO DAILY [facility] PRN Reason: Protocol Stop: 09/22/17 08:59 Last Admin: 07/25/17 09:38 Dose: 5 mg Heparin Sodium (Porcine) (Heparin) 5,000 units SUBQ Q12HR [facility] Stop: 09/21/17 20:59 Last Admin: 07/25/17 09:34 Dose: 5,000 units Potassium Chloride 40 meq/Lidocaine HCl 25 mg/ Sodium Chloride 272.5 mls @ 68 mls/hr IV DAILY PRN PRN Reason: k level less than 3.2 Stop: 09/21/17 17:37 Magnesium Sulfate (Magnesium Sulfate Premix) 2 gm in 50 mls @ 25 mls/hr IV DAILY PRN PRN Reason: Magnesium level less than 1.6 Stop: 09/21/17 17:37 Insulin Aspart (Novolog Insulin Sliding Scale) 0 units SUBQ ACHS [facility] PRN Reason: Protocol Stop: 09/22/17 11:29 Last Admin: 07/25/17 08:03 Dose: Not Given Levothyroxine Sodium (Synthroid) 0.15 mg PO DAILY [facility] Stop: 09/22/17 08:59 Last Admin: 07/25/17 09:38 Dose: 0.15 mg Lorazepam (Ativan) 1 mg IVP Q4H PRN; Protocol PRN Reason: Anxiety Stop: 09/21/17 17:37 Losartan Potassium (Cozaar) 100 mg PO DAILY [facility] Stop: 09/22/17 08:14 Last Admin: 07/25/17 09:40 Dose: Not Given Magnesium Oxide (Mag-Oxide) 400 mg PO BID PRN PRN Reason: Mg less than 1.9 Stop: 09/21/17 17:37 Last Admin: 07/24/17 10:15 Dose: 400 mg Mupirocin (Bactroban Oint) 1 appl NS BID [facility] Stop: 07/29/17 17:01 Last Admin: 07/25/17 09:37 Dose: 1 appl Nifedipine (Procardia Xl) 60 mg PO DAILY [facility] Stop: 09/22/17 12:59 Last Admin: 07/25/17 09:41 Dose: Not Given Ondansetron HCl (Zofran) 4 mg IVP Q6H PRN PRN Reason: Nausea / Vomiting Stop: 09/21/17 17:37 Oxycodone/Acetaminophen (Percocet 5/325mg Oral Tab) 1 tab PO Q8H PRN PRN Reason: PAIN Stop: 09/21/17 17:35 Last Admin: 07/24/17 23:30 Dose: 1 tab Potassium Chloride (Klor-Con) 40 meq PO DAILY PRN PRN Reason: k level less than 3.5 Stop: 09/21/17 17:37 Last Admin: 07/24/17 10:15 Dose: 40 meq General: Alert, Oriented x3, Cooperative, No acute distress HEENT: Atraumatic, PERRLA, EOMI Neck: Supple Cardiovascular: Regular rate, Normal S1, Normal S2 Lungs: Clear to auscultation Abdomen: Bowel sounds, Soft, Obese Extremities: no Cyanosis, no Edema - Procedures Procedures: Procedures Procedure Code Date BLOOD TRANSFUSION SERVICE 46810 04/05/17 COLONOSCOPY AND BIOPSY 01990 04/05/17 EGD BIOPSY SINGLE/MULTIPLE 57691 04/05/17 EXCISION OF DUODENUM, ENDO, DIAGN [id number] 04/05/17 EXCISION OF SIGMOID COLON, ENDO, DIAGN [id number] 04/05/17 EXCISION OF STOMACH, ENDO, DIAGN [id number] 04/05/17 FLUOROSCOPY OF SUP VENA CAVA USING L OSM CONTRAST, GUIDANCE [id number] 04/05/17 INSERT TUNNELED CV CATH [id number] 04/05/17 INSERTION OF INFUSION DEV INTO SUP VENA CAVA, PERC APPROACH [id number] 04/05/17 PERFORMANCE OF URINARY FILTRATION, <6 HRS/DAY [id number] 06/11/17 TRANSFUSE NONAUT RED BLOOD CELLS IN PERIPH VEIN, PERC 78024X4 06/11/17 Assessment/Plan - Problem List Patient Problems: All Active Problems LOW HB 6.8 (Acute) - Assessment Assessment: ANEMIA ESRD HTN COPD HYPERLIPIDEMIA COPD GOUT BPH - Plan Plan: HD TODAY follow up labs Nutritional Asmnt/Malnutr-PDOC - Dietary Evaluation Malnutrition Findings (Please click <Entered> for more info): Nutritional Asmnt/Malnutrition Start: 07/24/17 17: 11 Text: Status: Complete Freq: Document 07/24/17 17:11 [facility] (Rec: 07/24/17 17:18 [email or web address] [email or web address]) Nutritional Asmnt/Malnutrition Patient General Information Nutritional Screening High Risk Diagnosis acute renal failure Pertinent Medical Hx/Surgical Hx ESRD, anemia, malnutrition, HTN, possible DM Subjective Information Pt seen sit on bed having lunch. Pt provided food preference. Current Diet Order/ Nutrition Support renal, fluid restriction 1000ml daily Pertinent Medications vit C, iron, novolog, synthroid, kcl Pertinent Labs 07/24 Na 137, K 4.2, Cl 95, BUN 60, Cr 7.0, glucose 104, POC 116 Nutritional Hx/Data Height 1.65 m Height (Calculated Centimeters) 165.1 Current Weight (lbs) 108.862 kg Weight (Calculated Kilograms) 108.9 Weight (Calculated Grams) 784772.2 [place] Body Weight 136 Body Mass Index (BMI) 39.9 Weight Status Obese GI Symptoms GI Symptoms None Last BM not indicated Difficult in: None Skin Integrity/Comment: intact Current %PO Good (75-100%) Estimated Nutritional Goals BEE in Kcals: Adj wt of IBW Calories/Kcals/Kg 30-35 Kcals Calculated 6316-2675 Protein: Adj wt of IBW Protein g/k.2-1.4 Protein Calculated 90-105 Fluid: ml fluid restriction 1000ml daily per MD order Nutritional Problem 1. Problem Problem altered nutrition related labs Etiology hx of ESRD Signs/Symptoms: BUN 60, Cr 7.0 Malnutrition Alert Is there a minimum of two criteria No selected? Query Text:Check all the applicable criteria. A minimum of two criteria are recommended for diagnosis of either severe or non-severe malnutrition. Malnutrition Related to Morbid Obesity Malnutrition related to morbid obesity No Intervention/Recommendation Comments 1. Continue with renal diet as ordered. Food preference updated. 2. Monitor PO intake, wt, labs and skin integrity 3. F/U as moderate risk in 3-5 days, 07/27-07/29 Expected Outcomes/Goals Expected Outcomes/Goals 1. PO intake to meet at least 75% of nutritional needs. 2. Wt stability, skin to remain intact, labs to approach WNL.
--- NOTE | 2017-07-25 18:24 | Consultation ---
DATE OF CONSULTATION: 07/25/2017 VASCULAR CONSULTATION REFERRING PHYSICIAN: Dr. Mustafa/Dr. Hiren Pugh. REASON FOR CONSULTATION: Severe bradycardia and azotemia. Thank you for referring this patient to me. HISTORY OF PRESENT ILLNESS: This 76-year-old obese male who comes in because of his anemia and weakness. PAST MEDICAL HISTORY: Includes end-stage renal disease, anemia, malnutrition, and hypertension. FAMILY HISTORY: The patient does not have any family. LABORATORY DATA: The significant findings include on the laboratory study; the hemoglobin is 9.3, previous to that was 7.8 grams. The patient given blood replacement. Additionally, the BUN and creatinine has increased from 50 to 75 and 6 to 7.6, respectively. EKG shows severe bradycardia and the patient was seen by insurance law specialist, Dr. Hiren Pugh who recommended placement of DDD pacemaker. Dr. Devine, printing supervisor has seen the patient as well and recommended starting hemodialysis treatment. The patient has no family. Informed consent discussed with the patient regarding placement of pacemaker on Perm-A-Cath in order to treat both conditions. We will schedule for surgery. JOB# [id number] [email or web address]
--- NOTE | 2017-07-25 18:42 | Cardiology ---
07/23/[address] Mustafa. PROCEDURE: Echocardiogram. M-MODE ECHOCARDIOGRAM: Mitral valve, anterior leaflet of mitral valve shows normal excursion, EF velocity. Posterior leaflet of mitral valve shows normal excursion. Left ventricle posterior wall shows increased thickness, normal excursion. Interventricular septum shows increased thickness, normal excursion, hypertrophy of the left ventricle, ejection fraction 50%. Left atrium enlarged 4.2 cm. Aortic root shows normal dimension, normal excursion of aortic leaflets. CONCLUSION: Hypertrophy of the left ventricle, left atrial enlargement, ejection fraction 50%. 2D ECHO: Long axis view showed normal sized left ventricle with hypertrophy of the left ventricle. Left atrium enlarged. Aortic root shows normal dimension, normal excursion of aortic leaflets. Short axis view of mitral valve normal. Short axis view of aortic valve normal. Apical four chamber view showed normal sized left ventricle with hypertrophy of the left ventricle. Left atrium enlarged. Right ventricular cavity, right atrium normal, no pericardial effusion. CONCLUSION: Hypertrophy of the left ventricle. Left atrial enlargement, ejection fraction 50%. Doppler study shows mild mitral regurgitation, mild tricuspid regurgitation, mild aortic regurgitation. Right ventricular systolic pressure 45 mmHg with mild pulmonary hypertension. [facility]# [id number]
--- NOTE | 2017-07-26 03:01 | Consultation ---
DATE OF CONSULTATION: 07/23/2017 PATIENT OF: Dr. Mustafa. HISTORY AND PHYSICAL: This 76-year-old male patient brought to the Emergency Room with accelerated hypertension. The patient has no complaint of chest pain. PAST MEDICAL HISTORY: Iron deficiency anemia; end-stage renal disease, on dialysis; hypertension; unsteady gait; diabetes mellitus type 2; hyperlipidemia; hypothyroidism; protein-calorie malnutrition. FAMILY HISTORY: Unremarkable. SOCIAL HISTORY: No history of smoking or alcohol abuse. ALLERGIES: No known allergies. PHYSICAL EXAMINATION: VITAL SIGNS: Blood pressure 170/80 on admission and 200/98, pulse 88, and respirations 20. HEAD: Normocephalic. No lumps or bumps. EYES: Pupils equal and reactive to light. Fundi show AV nicking, sclerae white, conjunctivae pink. NECK: Carotid 2+. Normal upstroke. JVD flat. Thyroid not palpable. Lymph nodes not palpable. CHEST: Shows increased AP diameter. No kyphosis or scoliosis. LUNGS: Bilateral bronchovesicular breath sounds. Bilateral wheezing, rhonchi, prolonged with expiration. HEART: PMI in fifth intercostal space with lateral to midclavicular line. S1, S2, S3, S4. Soft systolic murmur. ABDOMEN: Soft. Liver and spleen not palpable. No organomegaly. Bowel sounds active. NEUROLOGIC: No focal neurological deficit. EXTREMITIES: Peripheral pulses 1+, pedal edema 1+. CLINICAL IMPRESSION: Accelerated hypertension; iron deficiency anemia; diabetes mellitus type 2; diabetic chronic kidney disease stage V; end-stage renal disease, on dialysis; chronic obstructive pulmonary disease; benign prostatic hypertrophy; protein-calorie malnutrition. PLAN: The patient to continue present management. The patient to continue on respiratory treatment, IV antibiotics. JOB# [id number]
[2017-07-26 06:08] LABS: % BASOPHILS 0.9 % (0.0-2.0); % EOSINOPHILS 4.3 % (0.0-5.0); % LYMPHOCYTES 29.6 % (20.0-50.0); % MONOCYTES 8.2 % (2.0-10.0); BASOPHILE ABSOLUTE 0.1 Th/cumm (0-0.2); EOSINOPHILE ABSOLUTE 0.4 Th/cmm (0.1-0.4); HEMATOCRIT 29.1 % (41.0-60); HEMOGLOBIN 9.3 gm/dL (12-16); LYMPHOCYTE ABSOLUTE 2.4 Th/cmm (1.5-3.0); MEAN CELL VOLUME 89.7 fl (80-99); MEAN CORPUSCULAR HEMOGLOBIN 28.5 pg (27.0-31.0); MEAN CORPUSCULAR HGB CONC 31.8 pg (28.0-36.0); MEAN PLATELET VOLUME 7.5 fl; MONOCYTE ABSOLUTE 0.7 Th/cmm (0.3-1.0); NEUTROPHILE ABSOLUTE 4.6 Th/cmm (1.8-8.0); PLATELET COUNT 376 Th/cmm (150-400); RED BLOOD COUNT 3.25 Mil/cmm (3.80-5.80); RED CELL DISTRIBUTION WIDTH 18.4 % (11.5-20.0); WHITE BLOOD COUNT 8.2 Th/cmm (4.8-10.8)
[2017-07-26 06:25] LABS: ANION GAP 15.7 (7.0-16.0); BUN - UREA NITROGEN 54 mg/dL (7-25); CALCIUM SERUM 9.2 mg/dL (8.6-10.3); CARBON DIOXIDE 24.4 mEq/L (21.0-31.0); CHLORIDE 101 mEq/L (98-107); GLUCOSE 104 mg/dL (70-105); POTASSIUM SERUM 5.1 mEq/L (3.5-5.1); SODIUM SERUM 136 mEq/L (136-145)
[2017-07-26 06:37] LABS: CREATININE - SERUM 5.8 mg/dL (0.7-1.3)
[2017-07-26] MEDS ORDERED: fentaNYL Citrate 100 mcg/2mL Vial ONE (07:42)
[2017-07-26] MEDS: INSULIN ASPART SLIDING SCALE 100 UNITS/ML UNIT SUBQ SCH ×4 (08:02→21:20)
[2017-07-26] MEDS: Aspirin 81mg Chewable Tab PO SCH (08:07)
[2017-07-26] MEDS: Ferrous Sulfate 325 MG TAB PO SCH ×2 (08:08→17:29)
--- NOTE | 2017-07-26 08:09 | General Progress Note ---
Subjective - Review of Systems Service Date: 07/26/17 Subjective: Pt seen and eval. Awake, alert, pleasant. Had 1 unit PRBC on 07/24/17. He had EGD and Colonoscopy earlier this year, and he had Gastritis. Has been receiving dialysis. No n,v,d or cp. No falls or sz. No cough. No acute pain. going to OR this am for permanent pacemaker placement by Dr. Desai. Objective - Results Result Diagrams: 07/26/17 05:30 07/26/17 05:30 Recent Labs: Laboratory Last Values WBC 8.2 Th/cmm (4.8-10.8) 07/26/17 05:30 RBC 3.25 Mil/cmm (3.80-5.80) L 07/26/17 05:30 Hgb 9.3 gm/dL (12-16) L 07/26/17 05:30 Hct 29.1 % (41.0-60) L 07/26/17 05:30 MCV 89.7 fl (80-99) 07/26/17 05:30 MCH 28.5 pg (27.0-31.0) 07/26/17 05:30 MCHC Differential 31.8 pg (28.0-36.0) 07/26/17 05:30 RDW 18.4 % (11.5-20.0) 07/26/17 05:30 Plt Count 376 Th/cmm (150-400) 07/26/17 05:30 MPV 7.5 fl 07/26/17 05:30 Neutrophils % 57.0 % (40.0-80.0) 07/26/17 05:30 Lymphocytes % 29.6 % (20.0-50.0) 07/26/17 05:30 Monocytes % 8.2 % (2.0-10.0) 07/26/17 05:30 Eosinophils % 4.3 % (0.0-5.0) 07/26/17 05:30 Basophils % 0.9 % (0.0-2.0) 07/26/17 05:30 Plt Count 407 Th/cmm (150-750) 07/24/17 05:06 PT 11.3 SECONDS (9.5-11.5) 07/24/17 05:06 INR 1.09 (0.5-1.4) 07/24/17 05:06 PTT (Actin FS) 29.1 SECONDS (26.0-38.0) 07/24/17 05:06 Fibrinogen 486.0 mg/dL (200.0-400.0) H 07/24/17 05:06 D-Dimer 4800 ng/mL (100-400) H 07/24/17 05:06 Sodium 136 mEq/L (136-145) 07/26/17 05:30 Potassium 5.1 mEq/L (3.5-5.1) 07/26/17 05:30 Chloride 101 mEq/L (98-107) 07/26/17 05:30 Carbon Dioxide 24.4 mEq/L (21.0-31.0) 07/26/17 05:30 Anion Gap 15.7 (7.0-16.0) 07/26/17 05:30 BUN 54 mg/dL (7-25) H 07/26/17 05:30 Creatinine 5.8 mg/dL (0.7-1.3) H* 07/26/17 05:30 Est GFR ( Amer) TNP 07/26/17 05:30 Est GFR (Non-Af Amer) TNP 07/26/17 05:30 BUN/Creatinine Ratio 9.3 07/26/17 05:30 Glucose 104 mg/dL (70-105) 07/26/17 05:30 POC Glucose 96 MG/DL (70 - 105) 07/26/17 06:50 Whole Bld Lactic Acid 0.78 mmol/L (0.60-1.99) 07/23/17 13:00 Calcium 9.2 mg/dL (8.6-10.3) 07/26/17 05:30 Magnesium 2.0 mg/dL (1.9-2.7) 07/23/17 13:00 Total Bilirubin 0.4 mg/dL (0.3-1.0) 07/23/17 13:00 AST 11 U/L (13-39) L 07/23/17 13:00 ALT 5 U/L (7-52) L 07/23/17 13:00 Alkaline Phosphatase 62 U/L (34-104) 07/23/17 13:00 Creatine Kinase 11 U/L (30-223) L 07/23/17 13:00 Troponin I 0.02 ng/mL (0.01-0.05) 07/23/17 13:00 Total Protein 6.6 gm/dL (6.0-8.3) 07/23/17 13:00 Albumin 2.9 gm/dL (4.2-5.5) L 07/23/17 13:00 Globulin 3.7 gm/dL 07/23/17 13:00 Albumin/Globulin Ratio 0.8 (1.0-1.8) L 07/23/17 13:00 Blood Type O POSITIVE 07/24/17 10:20 Antibody Screen NEGATIVE 07/24/17 10:20 Crossmatch See Detail 07/24/17 10:20 - Physical Exam Vitals and I&O: Vital Signs Temp 97.5 F 07/26/17 04:00 Pulse 79 07/26/17 06:05 Resp 18 07/26/17 04:00 BP 173/75 07/26/17 06:05 Pulse Ox 100 07/26/17 04:00 Intake & Output 07/25/17 07/26/17 07/26/17 18:59 06:59 18:59 Intake Total 350 200 Balance 350 200 Weight (lbs) 108.862 kg 106.141 kg 106.141 kg Intake: Oral 350 200 Other: # Voids 1 1 # Bowel Movements 0 0 Weight Source Bedscale Bedscale Bedscale Active Medications: Current Medications Acetaminophen (Tylenol) 650 mg PO Q6H PRN PRN Reason: HEADACHE/TEMP ABOVE 100F Stop: 09/21/17 17:37 Ascorbic Acid (Vitamin C) 500 mg PO BID [facility] Stop: 09/22/17 08:59 Last Admin: 07/25/17 17:00 Dose: 500 mg Aspirin (Aspirin Chewable) 81 mg PO DAILY [facility] Stop: 09/22/17 08:59 Last Admin: 07/25/17 09:37 Dose: 81 mg Bumetanide (Bumex) 2 mg PO TID [facility] Stop: 09/21/17 20:59 Last Admin: 07/25/17 21:49 Dose: Not Given Calcium Acetate (Phoslo) 1,334 mg PO TIDWM [facility] Stop: 09/21/17 20:59 Last Admin: 07/25/17 17:00 Dose: 1,334 mg Carvedilol (Coreg) 12.5 mg PO BID [facility] Stop: 09/22/17 08:59 Last Admin: 07/25/17 17:00 Dose: 12.5 mg Dextrose (D50w) 50 ml IVP PRN PRN PRN Reason: BLOOD SUGAR BELOW 60 Stop: 09/21/17 17:37 Ferrous Sulfate (Iron) 325 mg PO BID [facility] Stop: 09/22/17 08:59 Last Admin: 07/25/17 17:00 Dose: 325 mg Finasteride (Proscar) 5 mg PO DAILY [facility] PRN Reason: Protocol Stop: 09/22/17 08:59 Last Admin: 07/25/17 09:38 Dose: 5 mg Heparin Sodium (Porcine) (Heparin) 5,000 units SUBQ Q12HR [facility] Stop: 09/21/17 20:59 Last Admin: 07/25/17 21:41 Dose: Not Given Potassium Chloride 40 meq/Lidocaine HCl 25 mg/ Sodium Chloride 272.5 mls @ 68 mls/hr IV DAILY PRN PRN Reason: k level less than 3.2 Stop: 09/21/17 17:37 Magnesium Sulfate (Magnesium Sulfate Premix) 2 gm in 50 mls @ 25 mls/hr IV DAILY PRN PRN Reason: Magnesium level less than 1.6 Stop: 09/21/17 17:37 Insulin Aspart (Novolog Insulin Sliding Scale) 0 units SUBQ ACHS [facility] PRN Reason: Protocol Stop: 09/22/17 11:29 Last Admin: 07/25/17 21:41 Dose: Not Given Levothyroxine Sodium (Synthroid) 0.15 mg PO DAILY [facility] Stop: 09/22/17 08:59 Last Admin: 07/25/17 09:38 Dose: 0.15 mg Lorazepam (Ativan) 1 mg IVP Q4H PRN; Protocol PRN Reason: Anxiety Stop: 09/21/17 17:37 Losartan Potassium (Cozaar) 100 mg PO DAILY [facility] Stop: 09/22/17 08:14 Last Admin: 07/25/17 09:40 Dose: Not Given Magnesium Oxide (Mag-Oxide) 400 mg PO BID PRN PRN Reason: Mg less than 1.9 Stop: 09/21/17 17:37 Last Admin: 07/24/17 10:15 Dose: 400 mg Mupirocin (Bactroban Oint) 1 appl NS BID [facility] Stop: 07/29/17 17:01 Last Admin: 07/25/17 17:00 Dose: 1 appl Nifedipine (Procardia Xl) 60 mg PO DAILY [facility] Stop: 09/22/17 12:59 Last Admin: 07/25/17 09:41 Dose: Not Given Ondansetron HCl (Zofran) 4 mg IVP Q6H PRN PRN Reason: Nausea / Vomiting Stop: 09/21/17 17:37 Oxycodone/Acetaminophen (Percocet 5/325mg Oral Tab) 1 tab PO Q8H PRN PRN Reason: PAIN Stop: 09/21/17 17:35 Last Admin: 07/24/17 23:30 Dose: 1 tab Potassium Chloride (Klor-Con) 40 meq PO DAILY PRN PRN Reason: k level less than 3.5 Stop: 09/21/17 17:37 Last Admin: 07/24/17 10:15 Dose: 40 meq General: Alert, Oriented x3, Cooperative, No acute distress HEENT: Atraumatic, PERRLA, EOMI Neck: Supple Cardiovascular: Regular rate, Normal S1, Normal S2 Lungs: Clear to auscultation Abdomen: Bowel sounds, Soft, Obese Extremities: no Cyanosis, no Edema - Procedures Procedures: Procedures Procedure Code Date BLOOD TRANSFUSION SERVICE 76067 04/05/17 COLONOSCOPY AND BIOPSY 45349 04/05/17 EGD BIOPSY SINGLE/MULTIPLE 58480 04/05/17 EXCISION OF DUODENUM, ENDO, DIAGN [id number] 04/05/17 EXCISION OF SIGMOID COLON, ENDO, DIAGN [id number] 04/05/17 EXCISION OF STOMACH, ENDO, DIAGN [id number] 04/05/17 FLUOROSCOPY OF SUP VENA CAVA USING L OSM CONTRAST, GUIDANCE [id number] 04/05/17 INSERT TUNNELED CV CATH [id number] 04/05/17 INSERTION OF INFUSION DEV INTO SUP VENA CAVA, PERC APPROACH [id number] 04/05/17 PERFORMANCE OF URINARY FILTRATION, <6 HRS/DAY [id number] 06/11/17 TRANSFUSE NONAUT RED BLOOD CELLS IN PERIPH VEIN, PERC [id number] 06/11/17 Assessment/Plan - Problem List Patient Problems: All Active Problems LOW HB 6.8 (Acute) - Assessment Assessment: Severe Anemia Cardiac arrythmia Anemia of ch ill Gastritis VMN with ESRD Sev malnlut Acc HTN Hypothyroidism Obese Bradycardia - Plan Plan: Has been receiving dialysis. Status post 1 unit prbc on 07/24/17. FU on CBC. Pt has hx of EGD and Colonoscopy done earlier this year, and he was found to have Gastritis. FU on chem panel. Cardio consulted as well. Going to OR today for permanent pacemaker palcement by Dr. Desai. Dr. Hiren Pugh is the real estate lawyer on the case. Nutritional Asmnt/Malnutr-PDOC - Dietary Evaluation Malnutrition Findings (Please click <Entered> for more info): Nutritional Asmnt/Malnutrition Start: 07/24/17 17: 11 Text: Status: Complete Freq: Document 07/24/17 17:11 LCHENG (Rec: 07/24/17 17:18 [email or web address] [email or web address]) Nutritional Asmnt/Malnutrition Patient General Information Nutritional Screening High Risk Diagnosis acute renal failure Pertinent Medical Hx/Surgical Hx ESRD, anemia, malnutrition, HTN, possible DM Subjective Information Pt seen sit on bed having lunch. Pt provided food preference. Current Diet Order/ Nutrition Support renal, fluid restriction 1000ml daily Pertinent Medications vit C, iron, novolog, synthroid, kcl Pertinent Labs 07/24 Na 137, K 4.2, Cl 95, BUN 60, Cr 7.0, glucose 104, POC 116 Nutritional Hx/Data Height 1.65 m Height (Calculated Centimeters) 165.1 Current Weight (lbs) 108.862 kg Weight (Calculated Kilograms) 108.9 Weight (Calculated Grams) 390312.2 [place] Body Weight 136 Body Mass Index (BMI) 39.9 Weight Status Obese GI Symptoms GI Symptoms None Last BM not indicated Difficult in: None Skin Integrity/Comment: intact Current %PO Good (75-100%) Estimated Nutritional Goals BEE in Kcals: Adj wt of IBW Calories/Kcals/Kg 30-35 Kcals Calculated 2328-3322 Protein: Adj wt of IBW Protein g/k.2-1.4 Protein Calculated 90-105 Fluid: ml fluid restriction 1000ml daily per MD order Nutritional Problem 1. Problem Problem altered nutrition related labs Etiology hx of ESRD Signs/Symptoms: BUN 60, Cr 7.0 Malnutrition Alert Is there a minimum of two criteria No selected? Query Text:Check all the applicable criteria. A minimum of two criteria are recommended for diagnosis of either severe or non-severe malnutrition. Malnutrition Related to Morbid Obesity Malnutrition related to morbid obesity No Intervention/Recommendation Comments 1. Continue with renal diet as ordered. Food preference updated. 2. Monitor PO intake, wt, labs and skin integrity 3. F/U as moderate risk in 3-5 days, 07/27-07/29 Expected Outcomes/Goals Expected Outcomes/Goals 1. PO intake to meet at least 75% of nutritional needs. 2. Wt stability, skin to remain intact, labs to approach WNL.
[2017-07-26] MEDS: Levothyroxine 0.075 Mg Tab PO SCH (08:11)
[2017-07-26] MEDS: NIFEdipine 30 mg ER Tab PO SCH (08:11)
[2017-07-26] MEDS ORDERED: Propofol **SURGERY USE ONLY** 20 ML IV ONE (08:13)
--- NOTE | 2017-07-26 09:16 | Diagnostic Imaging Report ---
Fluoroscopy was utilized facilitation of cardiac pacemaker placement. Please refer to for the procedural report for complete details. Total fluoroscopic time was 1 minute and 55 seconds.
--- NOTE | 2017-07-26 10:41 | General Progress Note ---
Subjective - Review of Systems Service Date: 07/26/17 Subjective: s/p pacemaker s/p transfusion yesterday H/H stable Objective - Results Result Diagrams: 07/26/17 05:30 07/26/17 05:30 Recent Labs: Laboratory Last Values WBC 8.2 Th/cmm (4.8-10.8) 07/26/17 05:30 RBC 3.25 Mil/cmm (3.80-5.80) L 07/26/17 05:30 Hgb 9.3 gm/dL (12-16) L 07/26/17 05:30 Hct 29.1 % (41.0-60) L 07/26/17 05:30 MCV 89.7 fl (80-99) 07/26/17 05:30 MCH 28.5 pg (27.0-31.0) 07/26/17 05:30 MCHC Differential 31.8 pg (28.0-36.0) 07/26/17 05:30 RDW 18.4 % (11.5-20.0) 07/26/17 05:30 Plt Count 376 Th/cmm (150-400) 07/26/17 05:30 MPV 7.5 fl 07/26/17 05:30 Neutrophils % 57.0 % (40.0-80.0) 07/26/17 05:30 Lymphocytes % 29.6 % (20.0-50.0) 07/26/17 05:30 Monocytes % 8.2 % (2.0-10.0) 07/26/17 05:30 Eosinophils % 4.3 % (0.0-5.0) 07/26/17 05:30 Basophils % 0.9 % (0.0-2.0) 07/26/17 05:30 Plt Count 407 Th/cmm (150-750) 07/24/17 05:06 PT 11.3 SECONDS (9.5-11.5) 07/24/17 05:06 INR 1.09 (0.5-1.4) 07/24/17 05:06 PTT (Actin FS) 29.1 SECONDS (26.0-38.0) 07/24/17 05:06 Fibrinogen 486.0 mg/dL (200.0-400.0) H 07/24/17 05:06 D-Dimer 4800 ng/mL (100-400) H 07/24/17 05:06 Sodium 136 mEq/L (136-145) 07/26/17 05:30 Potassium 5.1 mEq/L (3.5-5.1) 07/26/17 05:30 Chloride 101 mEq/L (98-107) 07/26/17 05:30 Carbon Dioxide 24.4 mEq/L (21.0-31.0) 07/26/17 05:30 Anion Gap 15.7 (7.0-16.0) 07/26/17 05:30 BUN 54 mg/dL (7-25) H 07/26/17 05:30 Creatinine 5.8 mg/dL (0.7-1.3) H* 07/26/17 05:30 Est GFR ( Amer) TNP 07/26/17 05:30 Est GFR (Non-Af Amer) TNP 07/26/17 05:30 BUN/Creatinine Ratio 9.3 07/26/17 05:30 Glucose 104 mg/dL (70-105) 07/26/17 05:30 POC Glucose 96 MG/DL (70 - 105) 07/26/17 06:50 Whole Bld Lactic Acid 0.78 mmol/L (0.60-1.99) 07/23/17 13:00 Calcium 9.2 mg/dL (8.6-10.3) 07/26/17 05:30 Magnesium 2.0 mg/dL (1.9-2.7) 07/23/17 13:00 Total Bilirubin 0.4 mg/dL (0.3-1.0) 07/23/17 13:00 AST 11 U/L (13-39) L 07/23/17 13:00 ALT 5 U/L (7-52) L 07/23/17 13:00 Alkaline Phosphatase 62 U/L (34-104) 07/23/17 13:00 Creatine Kinase 11 U/L (30-223) L 07/23/17 13:00 Troponin I 0.02 ng/mL (0.01-0.05) 07/23/17 13:00 Total Protein 6.6 gm/dL (6.0-8.3) 07/23/17 13:00 Albumin 2.9 gm/dL (4.2-5.5) L 07/23/17 13:00 Globulin 3.7 gm/dL 07/23/17 13:00 Albumin/Globulin Ratio 0.8 (1.0-1.8) L 07/23/17 13:00 Blood Type O POSITIVE 07/24/17 10:20 Antibody Screen NEGATIVE 07/24/17 10:20 Crossmatch See Detail 07/24/17 10:20 - Physical Exam Vitals and I&O: Vital Signs Temp 97.5 F 07/26/17 04:00 Pulse 77 07/26/17 08:11 Resp 18 07/26/17 04:00 BP 177/89 07/26/17 08:11 Pulse Ox 100 07/26/17 04:00 Intake & Output 07/25/17 07/26/17 07/26/17 18:59 06:59 18:59 Intake Total 350 200 Balance 350 200 Weight (lbs) 108.862 kg 106.141 kg 106.141 kg Intake: Oral 350 200 Other: # Voids 1 1 # Bowel Movements 0 0 Weight Source Bedscale Bedscale Bedscale Active Medications: Current Medications Acetaminophen (Tylenol) 650 mg PO Q6H PRN PRN Reason: HEADACHE/TEMP ABOVE 100F Stop: 09/21/17 17:37 Ascorbic Acid (Vitamin C) 500 mg PO BID [facility] Stop: 09/22/17 08:59 Last Admin: 07/26/17 08:06 Dose: Not Given Aspirin (Aspirin Chewable) 81 mg PO DAILY [facility] Stop: 09/22/17 08:59 Last Admin: 07/26/17 08:07 Dose: Not Given Bumetanide (Bumex) 2 mg PO TID [facility] Stop: 09/21/17 20:59 Last Admin: 07/26/17 08:07 Dose: Not Given Calcium Acetate (Phoslo) 1,334 mg PO TIDWM [facility] Stop: 09/21/17 20:59 Last Admin: 07/26/17 08:03 Dose: Not Given Carvedilol (Coreg) 12.5 mg PO BID [facility] Stop: 09/22/17 08:59 Last Admin: 07/26/17 08:07 Dose: Not Given Dextrose (D50w) 50 ml IVP PRN PRN PRN Reason: BLOOD SUGAR BELOW 60 Stop: 09/21/17 17:37 Ferrous Sulfate (Iron) 325 mg PO BID [facility] Stop: 09/22/17 08:59 Last Admin: 07/26/17 08:08 Dose: Not Given Finasteride (Proscar) 5 mg PO DAILY [facility] PRN Reason: Protocol Stop: 09/22/17 08:59 Last Admin: 07/26/17 08:08 Dose: Not Given Heparin Sodium (Porcine) (Heparin) 5,000 units SUBQ Q12HR [facility] Stop: 09/21/17 20:59 Last Admin: 07/26/17 08:08 Dose: Not Given Potassium Chloride 40 meq/Lidocaine HCl 25 mg/ Sodium Chloride 272.5 mls @ 68 mls/hr IV DAILY PRN PRN Reason: k level less than 3.2 Stop: 09/21/17 17:37 Magnesium Sulfate (Magnesium Sulfate Premix) 2 gm in 50 mls @ 25 mls/hr IV DAILY PRN PRN Reason: Magnesium level less than 1.6 Stop: 09/21/17 17:37 Insulin Aspart (Novolog Insulin Sliding Scale) 0 units SUBQ ACHS [facility] PRN Reason: Protocol Stop: 09/22/17 11:29 Last Admin: 07/26/17 08:02 Dose: Not Given Levothyroxine Sodium (Synthroid) 0.15 mg PO DAILY [facility] Stop: 09/22/17 08:59 Last Admin: 07/26/17 08:11 Dose: Not Given Lorazepam (Ativan) 1 mg IVP Q4H PRN; Protocol PRN Reason: Anxiety Stop: 09/21/17 17:37 Losartan Potassium (Cozaar) 100 mg PO DAILY [facility] Stop: 09/22/17 08:14 Last Admin: 07/26/17 08:11 Dose: Not Given Magnesium Oxide (Mag-Oxide) 400 mg PO BID PRN PRN Reason: Mg less than 1.9 Stop: 09/21/17 17:37 Last Admin: 07/24/17 10:15 Dose: 400 mg Mupirocin (Bactroban Oint) 1 appl NS BID [facility] Stop: 07/29/17 17:01 Last Admin: 07/26/17 09:41 Dose: 1 appl Nifedipine (Procardia Xl) 60 mg PO DAILY [facility] Stop: 09/22/17 12:59 Last Admin: 07/26/17 08:11 Dose: Not Given Ondansetron HCl (Zofran) 4 mg IVP Q6H PRN PRN Reason: Nausea / Vomiting Stop: 09/21/17 17:37 Oxycodone/Acetaminophen (Percocet 5/325mg Oral Tab) 1 tab PO Q8H PRN PRN Reason: PAIN Stop: 09/21/17 17:35 Last Admin: 07/24/17 23:30 Dose: 1 tab Potassium Chloride (Klor-Con) 40 meq PO DAILY PRN PRN Reason: k level less than 3.5 Stop: 09/21/17 17:37 Last Admin: 07/24/17 10:15 Dose: 40 meq General: Alert, Oriented x3, Cooperative, No acute distress HEENT: Atraumatic, PERRLA, EOMI Neck: Supple Cardiovascular: Regular rate, Normal S1, Normal S2 Lungs: Clear to auscultation Abdomen: Bowel sounds, Soft, Obese Extremities: no Cyanosis, no Edema - Procedures Procedures: Procedures Procedure Code Date BLOOD TRANSFUSION SERVICE 25689 04/05/17 COLONOSCOPY AND BIOPSY 69759 04/05/17 EGD BIOPSY SINGLE/MULTIPLE 91664 04/05/17 EXCISION OF DUODENUM, ENDO, DIAGN [id number] 04/05/17 EXCISION OF SIGMOID COLON, ENDO, DIAGN [id number] 04/05/17 EXCISION OF STOMACH, ENDO, DIAGN [id number] 04/05/17 FLUOROSCOPY OF SUP VENA CAVA USING L OSM CONTRAST, GUIDANCE [id number] 04/05/17 INSERT TUNNELED CV CATH [id number] 04/05/17 INSERTION OF INFUSION DEV INTO SUP VENA CAVA, PERC APPROACH [id number] 04/05/17 PERFORMANCE OF URINARY FILTRATION, <6 HRS/DAY [id number] 06/11/17 TRANSFUSE NONAUT RED BLOOD CELLS IN PERIPH VEIN, PERC [id number] 06/11/17 Assessment/Plan - Problem List Patient Problems: All Active Problems LOW HB 6.8 (Acute) - Assessment Assessment: ANEMIA ESRD HTN COPD HYPERLIPIDEMIA COPD GOUT BPH - Plan Plan: s/p pacemaker fistula in am Nutritional Asmnt/Malnutr-PDOC - Dietary Evaluation Malnutrition Findings (Please click <Entered> for more info): Nutritional Asmnt/Malnutrition Start: 07/24/17 17: 11 Text: Status: Complete Freq: Document 07/24/17 17:11 LCHENG (Rec: 07/24/17 17:18 LCHENG [email or web address]) Nutritional Asmnt/Malnutrition Patient General Information Nutritional Screening High Risk Diagnosis acute renal failure Pertinent Medical Hx/Surgical Hx ESRD, anemia, malnutrition, HTN, possible DM Subjective Information Pt seen sit on bed having lunch. Pt provided food preference. Current Diet Order/ Nutrition Support renal, fluid restriction 1000ml daily Pertinent Medications vit C, iron, novolog, synthroid, kcl Pertinent Labs 07/24 Na 137, K 4.2, Cl 95, BUN 60, Cr 7.0, glucose 104, POC 116 Nutritional Hx/Data Height 1.65 m Height (Calculated Centimeters) 165.1 Current Weight (lbs) 108.862 kg Weight (Calculated Kilograms) 108.9 Weight (Calculated Grams) 196259.2 [place] Body Weight 136 Body Mass Index (BMI) 39.9 Weight Status Obese GI Symptoms GI Symptoms None Last BM not indicated Difficult in: None Skin Integrity/Comment: intact Current %PO Good (75-100%) Estimated Nutritional Goals BEE in Kcals: Adj wt of IBW Calories/Kcals/Kg 30-35 Kcals Calculated 6148-9321 Protein: Adj wt of IBW Protein g/k.2-1.4 Protein Calculated 90-105 Fluid: ml fluid restriction 1000ml daily per MD order Nutritional Problem 1. Problem Problem altered nutrition related labs Etiology hx of ESRD Signs/Symptoms: BUN 60, Cr 7.0 Malnutrition Alert Is there a minimum of two criteria No selected? Query Text:Check all the applicable criteria. A minimum of two criteria are recommended for diagnosis of either severe or non-severe malnutrition. Malnutrition Related to Morbid Obesity Malnutrition related to morbid obesity No Intervention/Recommendation Comments 1. Continue with renal diet as ordered. Food preference updated. 2. Monitor PO intake, wt, labs and skin integrity 3. F/U as moderate risk in 3-5 days, 07/27-07/29 Expected Outcomes/Goals Expected Outcomes/Goals 1. PO intake to meet at least 75% of nutritional needs. 2. Wt stability, skin to remain intact, labs to approach WNL.
--- NOTE | 2017-07-26 11:14 | Operative Report ---
DATE OF SURGERY: 07/26/2017 PREOPERATIVE DIAGNOSES: 1. Sick sinus syndrome with severe bradycardia. 2. Chronic renal failure. 3. Anemia. 4. Obesity. 5. Hypertension. POSTOPERATIVE DIAGNOSES: 1. Sick sinus syndrome with severe bradycardia. 2. Chronic renal failure. 3. Anemia. 4. Obesity. 5. Hypertension. OPERATION DONE: Insertion of DDD pacemaker under ultrasound and fluoroscopy. SURGEON: Wilder Desai MD ANESTHESIA: MAC ANESTHESIOLOGIST: Dr. Verde INDICATIONS FOR SURGERY: The patient with heart rate in the 30s. [employer] has recommended placement of AV sequential pacemaker. OPERATIVE FINDINGS: The following values were obtained: The right atrial P waves sensed at 1.7 at 0.4 milliseconds with resistance of 429 ohms. Ventricular lead. The R-wave at 4.6 at 0.4 milliseconds at 1 volt with resistance of 663 ohms. Biotronik leads were used. The atrial is Solia S 45, serial #[id number] and the ventricular lead is Solia S 53, serial #[id number]. The generator used is MRI compatible [employer] 8 [address]-[employer], serial #[id number]. DESCRIPTION OF PROCEDURE: The patient was given informed consent prior to surgery, possible risk and benefits as well. The patient was given IV sedation. The left chest was prepped with Betadine and draped in appropriate manner. Ultrasound was used to locate the subclavian vessels. 1% lidocaine was used to infiltrate the area identified and a size 18 needle was used for the vein. The guide was inserted under fluoroscopy and was found to follow the course into the inferior vena cava. The introducer was placed over the guidewire and a ventricular lead was inserted under fluoroscopy and a suitable place in the right ventricular apex was found. Following satisfactory thresholds, the screw was deployed. The guidewire was then removed and the lead was sutured to the chest wall utilizing 2-0 silk. The atrial introducer was placed over the retained guidewire under fluoroscopy. The atrial lead was introduced and a suitable place was found with good thresholds and the screw was deployed. The leads were then secured in place with 2-0 silk and connected to the generator and placed in a subcutaneous pocket. Following satisfactory hemostasis, the incision was closed with running suture of 3-0 Vicryl subcutaneously and the skin was closed with 4-0 Vicryl. Dermabond, 4 x 4 and Op-Site were then applied over this. The patient tolerated the procedure well. JOB# [id number]
--- NOTE | 2017-07-26 11:21 | Diagnostic Imaging Report ---
CHEST X-RAY: AP view INDICATION: Pacemaker placement COMPARISON: 07/23/2017 FINDINGS: Chest wall pacemaker is in place with leads in the region of the right atrium and right ventricle. Increased interstitial lung markings are noted, greatest in the left base. No focal consolidation or effusions. No evidence of pneumothorax. Heart size normal. Atherosclerosis is noted. Bilateral shoulder arthroplasties are noted. IMPRESSION: Interval new left chest wall pacemaker placement with leads in the region of right atrium and right ventricle. Increased interstitial lung markings which are probably chronic, however, faint infiltrate left lung base cannot be excluded. No evidence of pneumothorax.
[2017-07-27 06:24] LABS: ALB/GLOB RATIO 0.8 (1.0-1.8); ALBUMIN 2.8 gm/dL (4.2-5.5); ALKALINE PHOSPHATASE 57 U/L (34-104); ANION GAP 17.1 (7.0-16.0); BILIRUBIN,TOTAL 0.3 mg/dL (0.3-1.0); BUN - UREA NITROGEN 67 mg/dL (7-25); CARBON DIOXIDE 24.1 mEq/L (21.0-31.0); CHLORIDE 101 mEq/L (98-107); GLUCOSE 94 mg/dL (70-105); POTASSIUM SERUM 5.2 mEq/L (3.5-5.1); SGOT 8 U/L (13-39); SGPT/ALT 3 U/L (7-52); SODIUM SERUM 137 mEq/L (136-145); TOTAL PROTEIN,SERUM 6.4 gm/dL (6.0-8.3)
[2017-07-27 06:25] LABS: CREATININE - SERUM 6.7 mg/dL (0.7-1.3)
[2017-07-27 06:35] LABS: BASOPHILE ABSOLUTE 0.1 Th/cumm (0-0.2); EOSINOPHILE ABSOLUTE 0.3 Th/cmm (0.1-0.4); HEMOGLOBIN 8.3 gm/dL (12-16); LYMPHOCYTE ABSOLUTE 2.7 Th/cmm (1.5-3.0); NEUTROPHILE ABSOLUTE 4.6 Th/cmm (1.8-8.0)
[2017-07-27 06:42] LABS: % EOSINOPHILS 3.4 % (0.0-5.0); % LYMPHOCYTES 32.4 % (20.0-50.0); % MONOCYTES 8.1 % (2.0-10.0); % NEUTROPHILS 55.1 % (40.0-80.0); HEMATOCRIT 26.4 % (41.0-60); MEAN CELL VOLUME 89.5 fl (80-99); MEAN CORPUSCULAR HGB CONC 31.3 pg (28.0-36.0); MEAN PLATELET VOLUME 7.7 fl; MONOCYTE ABSOLUTE 0.7 Th/cmm (0.3-1.0); PLATELET COUNT 395 Th/cmm (150-400); RED BLOOD COUNT 2.95 Mil/cmm (3.80-5.80); RED CELL DISTRIBUTION WIDTH 18.8 % (11.5-20.0); WHITE BLOOD COUNT 8.4 Th/cmm (4.8-10.8)
[2017-07-27] MEDS: INSULIN ASPART SLIDING SCALE 100 UNITS/ML UNIT SUBQ SCH ×4 (06:48→21:45)
[2017-07-27] MEDS ORDERED: Clindamycin 600mg/50mL 600 MG/50 ML BAG IV ONE (07:20)
[2017-07-27] MEDS ORDERED: fentaNYL Citrate 100 mcg/2mL Vial ONE (08:06)
[2017-07-27] MEDS ORDERED: Propofol **SURGERY USE ONLY** 20 ML IV ONE (08:09)
[2017-07-27] MEDS ORDERED: Lidocaine 2% Vial 20 mL Vial ONE (08:33)
[2017-07-27] MEDS: Aspirin 81mg Chewable Tab PO SCH (08:44)
[2017-07-27] MEDS: Ferrous Sulfate 325 MG TAB PO SCH ×2 (08:46→17:01)
[2017-07-27] MEDS: Levothyroxine 0.075 Mg Tab PO SCH (09:00)
[2017-07-27] MEDS: NIFEdipine 30 mg ER Tab PO SCH (09:33)
--- NOTE | 2017-07-27 10:39 | Operative Report ---
DATE OF SURGERY: 07/27/2017 PREOPERATIVE DIAGNOSES: 1. End-stage renal disease. 2. Sick sinus syndrome post pacemaker implant. POSTOPERATIVE DIAGNOSES: 1. End-stage renal disease. 2. Sick sinus syndrome post pacemaker implant. OPERATION DONE: Placement of Melvi fistula, left arm. SURGEON: Wilder Desai MD ANESTHESIA: MAC anesthesia. ANESTHESIOLOGIST: Dr. Verde Informed consent discussed with the patient regarding possibly of fistula and/or shunt placement and complications. DESCRIPTION OF PROCEDURE: The left arm was prepped with Betadine and draped in appropriate manner. 1% lidocaine was used to infiltrate the antecubital fossa. Incision was made and the medial antecubital vein was identified, was relatively good size at about 3 mm. This was dilated following IV heparin 5000 units. The brachial artery was of good size about 4 mm with no calcification. The artery was clamped proximal and distal, and an arteriotomy was made on its anterolateral wall. The vein was transected and tied proximally and Lakshmi catheter was used to dilate the vein. An end-to-side anastomosis was then performed utilizing 5-0 Prolene in a continuous fashion. Following release of clamp, there was a good Doppler signal distally and retention of radial pulse as well. The incision was closed with running suture of 4-0 Vicryl subcutaneously and the skin was closed with same material. Sterile dressing was placed over this. The patient tolerated the procedure well. JOB# [id number]
--- NOTE | 2017-07-27 12:58 | Progress Notes ---
DATE: 07/27/2017 SUBJECTIVE: The patient was resting comfortably in bed, does not appear to be in acute pain or distress at this time. The patient is status post insertion of DDD pacemaker under ultrasound and fluoroscopy. The patient tolerated well and there were no complications. The patient also had a blood transfusion on the . He was given 1 unit of packed red blood cells. The patient has a history of anemia of chronic illness due to end-stage renal disease as well as a history of gastritis. The pacemaker was placed due to new onset of sick sinus syndrome. Dr. Pugh is following. OBJECTIVE: VITAL SIGNS: Temperature 97.6, heart rate 73, blood pressure 137/73, and respiration 19. GENERAL: NAD. HEENT: PERRLA, EOMI. NECK: Supple. Trachea midline. CARDIOVASCULAR: Regular rate and rhythm. RESPIRATORY: Decreased breath sounds with rhonchi and rales. ABDOMEN: Soft, nontender, and nondistended. Bowel sounds positive in all 4 quadrants. SKIN: No rashes. MUSCULOSKELETAL: Muscle strength testing, bilateral upper and lower extremities 4/5. PSYCHIATRIC: No psychosis or hallucinations. LABORATORY DATA: Hemoglobin is 8.3. White blood cell count 8.4. Potassium is 5.2, creatinine is 6.7 and the albumin is 2.8. ASSESSMENT: Severe anemia, cardiac arrhythmia, gastritis ____ with end-stage renal disease, severe malnutrition, accelerated hypertension, hypothyroidism, obesity, sick sinus syndrome, status post DDD pacemaker placement. PLAN: Cardiology and General Surgery are following. H and H is stable at this time. The patient had dual chamber pacemaker placed without complication and should be monitored closely for any continued cardiac arrhythmias. Continue ferrous sulfate for anemia. Nephrology is following. Continue hemodialysis as tolerated. Continue carvedilol, losartan, and nifedipine for hypertension and levothyroxine for hypothyroidism. JOB# [id number]
--- NOTE | 2017-07-27 13:13 | General Progress Note ---
Subjective - Review of Systems Service Date: 07/27/17 Events since last encounter: Has new AVF on L arm. Just came back from OR. Wants to eat. Subjective: Wants to eat. Objective - Results Result Diagrams: 07/27/17 05:45 07/27/17 05:45 Recent Labs: Laboratory Last Values WBC 8.4 Th/cmm (4.8-10.8) 07/27/17 05:45 RBC 2.95 Mil/cmm (3.80-5.80) L 07/27/17 05:45 Hgb 8.3 gm/dL (12-16) L 07/27/17 05:45 Hct 26.4 % (41.0-60) L 07/27/17 05:45 MCV 89.5 fl (80-99) 07/27/17 05:45 MCH 28.0 pg (27.0-31.0) 07/27/17 05:45 MCHC Differential 31.3 pg (28.0-36.0) 07/27/17 05:45 RDW 18.8 % (11.5-20.0) 07/27/17 05:45 Plt Count 395 Th/cmm (150-400) 07/27/17 05:45 MPV 7.7 fl 07/27/17 05:45 Neutrophils % 55.1 % (40.0-80.0) 07/27/17 05:45 Lymphocytes % 32.4 % (20.0-50.0) 07/27/17 05:45 Monocytes % 8.1 % (2.0-10.0) 07/27/17 05:45 Eosinophils % 3.4 % (0.0-5.0) 07/27/17 05:45 Basophils % 1.0 % (0.0-2.0) 07/27/17 05:45 Plt Count 407 Th/cmm (150-750) 07/24/17 05:06 PT 11.3 SECONDS (9.5-11.5) 07/24/17 05:06 INR 1.09 (0.5-1.4) 07/24/17 05:06 PTT (Actin FS) 29.1 SECONDS (26.0-38.0) 07/24/17 05:06 Fibrinogen 486.0 mg/dL (200.0-400.0) H 07/24/17 05:06 D-Dimer 4800 ng/mL (100-400) H 07/24/17 05:06 Sodium 137 mEq/L (136-145) 07/27/17 05:45 Potassium 5.2 mEq/L (3.5-5.1) H 07/27/17 05:45 Chloride 101 mEq/L (98-107) 07/27/17 05:45 Carbon Dioxide 24.1 mEq/L (21.0-31.0) 07/27/17 05:45 Anion Gap 17.1 (7.0-16.0) H 07/27/17 05:45 BUN 67 mg/dL (7-25) H 07/27/17 05:45 Creatinine 6.7 mg/dL (0.7-1.3) H* 07/27/17 05:45 Est GFR ( Amer) TNP 07/27/17 05:45 Est GFR (Non-Af Amer) TNP 07/27/17 05:45 BUN/Creatinine Ratio 10.0 07/27/17 05:45 Glucose 94 mg/dL (70-105) 07/27/17 05:45 POC Glucose 96 MG/DL (70 - 105) 07/27/17 12:48 Whole Bld Lactic Acid 0.78 mmol/L (0.60-1.99) 07/23/17 13:00 Calcium 9.0 mg/dL (8.6-10.3) 07/27/17 05:45 Magnesium 2.0 mg/dL (1.9-2.7) 07/23/17 13:00 Total Bilirubin 0.3 mg/dL (0.3-1.0) 07/27/17 05:45 AST 8 U/L (13-39) L 07/27/17 05:45 ALT 3 U/L (7-52) L 07/27/17 05:45 Alkaline Phosphatase 57 U/L (34-104) 07/27/17 05:45 Creatine Kinase 11 U/L (30-223) L 07/23/17 13:00 Troponin I 0.02 ng/mL (0.01-0.05) 07/23/17 13:00 Total Protein 6.4 gm/dL (6.0-8.3) 07/27/17 05:45 Albumin 2.8 gm/dL (4.2-5.5) L 07/27/17 05:45 Globulin 3.6 gm/dL 07/27/17 05:45 Albumin/Globulin Ratio 0.8 (1.0-1.8) L 07/27/17 05:45 Blood Type O POSITIVE 07/24/17 10:20 Antibody Screen NEGATIVE 07/24/17 10:20 Crossmatch See Detail 07/24/17 10:20 - Physical Exam Vitals and I&O: Vital Signs Temp 96.3 F 07/27/17 07:54 Pulse 72 07/27/17 09:34 Resp 19 07/27/17 07:54 BP 167/89 07/27/17 09:34 Pulse Ox 96 07/27/17 07:54 Intake & Output 07/26/17 07/27/17 07/27/17 18:59 06:59 18:59 Intake Total 200 200 Balance 200 200 Weight (lbs) 106.141 kg 106.141 kg 106.141 kg Intake: Oral 200 200 Other: # Voids 0 0 # Bowel Movements 0 Weight Source Bedscale Bedscale Bedscale Active Medications: Current Medications Acetaminophen (Tylenol) 650 mg PO Q6H PRN PRN Reason: HEADACHE/TEMP ABOVE 100F Stop: 09/21/17 17:37 Ascorbic Acid (Vitamin C) 500 mg PO BID [facility] Stop: 09/22/17 08:59 Last Admin: 07/27/17 08:44 Dose: Not Given Aspirin (Aspirin Chewable) 81 mg PO DAILY [facility] Stop: 09/22/17 08:59 Last Admin: 07/27/17 08:44 Dose: Not Given Bumetanide (Bumex) 2 mg PO TID [facility] Stop: 09/21/17 20:59 Last Admin: 07/27/17 08:45 Dose: Not Given Calcium Acetate (Phoslo) 1,334 mg PO TIDWM [facility] Stop: 09/21/17 20:59 Last Admin: 07/27/17 07:29 Dose: Not Given Carvedilol (Coreg) 12.5 mg PO BID [facility] Stop: 09/22/17 08:59 Last Admin: 07/27/17 08:45 Dose: Not Given Dextrose (D50w) 50 ml IVP PRN PRN PRN Reason: BLOOD SUGAR BELOW 60 Stop: 09/21/17 17:37 Ferrous Sulfate (Iron) 325 mg PO BID [facility] Stop: 09/22/17 08:59 Last Admin: 07/27/17 08:46 Dose: Not Given Finasteride (Proscar) 5 mg PO DAILY NAZIA PRN Reason: Protocol Stop: 09/22/17 08:59 Last Admin: 07/27/17 08:46 Dose: Not Given Heparin Sodium (Porcine) (Heparin) 5,000 units SUBQ Q12HR [facility] Stop: 09/21/17 20:59 Last Admin: 07/27/17 08:46 Dose: Not Given Potassium Chloride 40 meq/Lidocaine HCl 25 mg/ Sodium Chloride 272.5 mls @ 68 mls/hr IV DAILY PRN PRN Reason: k level less than 3.2 Stop: 09/21/17 17:37 Magnesium Sulfate (Magnesium Sulfate Premix) 2 gm in 50 mls @ 25 mls/hr IV DAILY PRN PRN Reason: Magnesium level less than 1.6 Stop: 09/21/17 17:37 Insulin Aspart (Novolog Insulin Sliding Scale) 0 units SUBQ ACHS NAZIA PRN Reason: Protocol Stop: 09/22/17 11:29 Last Admin: 07/27/17 12:59 Dose: Not Given Levothyroxine Sodium (Synthroid) 0.15 mg PO DAILY [facility] Stop: 09/22/17 08:59 Last Admin: 07/27/17 09:00 Dose: Not Given Lorazepam (Ativan) 1 mg IVP Q4H PRN; Protocol PRN Reason: Anxiety Stop: 09/21/17 17:37 Losartan Potassium (Cozaar) 100 mg PO DAILY [facility] Stop: 09/22/17 08:14 Last Admin: 07/27/17 09:34 Dose: Not Given Magnesium Oxide (Mag-Oxide) 400 mg PO BID PRN PRN Reason: Mg less than 1.9 Stop: 09/21/17 17:37 Last Admin: 07/24/17 10:15 Dose: 400 mg Mupirocin (Bactroban Oint) 1 appl NS BID [facility] Stop: 07/29/17 17:01 Last Admin: 07/27/17 09:34 Dose: Not Given Nifedipine (Procardia Xl) 60 mg PO DAILY [facility] Stop: 09/22/17 12:59 Last Admin: 07/27/17 09:33 Dose: Not Given Ondansetron HCl (Zofran) 4 mg IVP Q6H PRN PRN Reason: Nausea / Vomiting Stop: 09/21/17 17:37 Oxycodone/Acetaminophen (Percocet 5/325mg Oral Tab) 1 tab PO Q8H PRN PRN Reason: PAIN Stop: 09/21/17 17:35 Last Admin: 07/24/17 23:30 Dose: 1 tab Potassium Chloride (Klor-Con) 40 meq PO DAILY PRN PRN Reason: k level less than 3.5 Stop: 09/21/17 17:37 Last Admin: 07/24/17 10:15 Dose: 40 meq General: Alert, Oriented x3, Cooperative, No acute distress HEENT: Atraumatic, PERRLA, EOMI Neck: Supple Cardiovascular: Regular rate, Normal S1, Normal S2 Lungs: Clear to auscultation Abdomen: Bowel sounds, Soft, Obese Extremities: no Cyanosis - Procedures Procedures: Procedures Procedure Code Date BLOOD TRANSFUSION SERVICE 74871 04/05/17 COLONOSCOPY AND BIOPSY 06647 04/05/17 EGD BIOPSY SINGLE/MULTIPLE 06301 04/05/17 EXCISION OF DUODENUM, ENDO, DIAGN [id number] 04/05/17 EXCISION OF SIGMOID COLON, ENDO, DIAGN [id number] 04/05/17 EXCISION OF STOMACH, ENDO, DIAGN [id number] 04/05/17 FLUOROSCOPY OF SUP VENA CAVA USING L OSM CONTRAST, GUIDANCE [id number] 04/05/17 INSERT TUNNELED CV CATH 23481 04/05/17 INSERTION OF INFUSION DEV INTO SUP VENA CAVA, PERC APPROACH [id number] 04/05/17 PERFORMANCE OF URINARY FILTRATION, <6 HRS/DAY [id number] 06/11/17 TRANSFUSE NONAUT RED BLOOD CELLS IN PERIPH VEIN, PERC 44617H2 07/23/17 Assessment/Plan - Problem List Patient Problems: All Active Problems LOW HB 6.8 (Acute) - Assessment Assessment: ANEMIA ESRD HTN COPD HYPERLIPIDEMIA COPD GOUT BPH - Plan Plan: HD today. If pt is here over the weekend, will plan to HD on Sunday then back to , , Sat as his regular outpt HD schedule. Discussed with HD staff and bedside nurse. Nutritional Asmnt/Malnutr-PDOC - Dietary Evaluation Malnutrition Findings (Please click <Entered> for more info): Nutritional Asmnt/Malnutrition Start: 07/24/17 17: 11 Text: Status: Complete Freq: Document 07/24/17 17:11 RADHA (Rec: 07/24/17 17:18 [email or web address] [email or web address]) Nutritional Asmnt/Malnutrition Patient General Information Nutritional Screening High Risk Diagnosis acute renal failure Pertinent Medical Hx/Surgical Hx ESRD, anemia, malnutrition, HTN, possible DM Subjective Information Pt seen sit on bed having lunch. Pt provided food preference. Current Diet Order/ Nutrition Support renal, fluid restriction 1000ml daily Pertinent Medications vit C, iron, novolog, synthroid, kcl Pertinent Labs 07/24 Na 137, K 4.2, Cl 95, BUN 60, Cr 7.0, glucose 104, POC 116 Nutritional Hx/Data Height 1.65 m Height (Calculated Centimeters) 165.1 Current Weight (lbs) 108.862 kg Weight (Calculated Kilograms) 108.9 Weight (Calculated Grams) 394268.2 [place] Body Weight 136 Body Mass Index (BMI) 39.9 Weight Status Obese GI Symptoms GI Symptoms None Last BM not indicated Difficult in: None Skin Integrity/Comment: intact Current %PO Good (75-100%) Estimated Nutritional Goals BEE in Kcals: Adj wt of IBW Calories/Kcals/Kg 30-35 Kcals Calculated 2725-9596 Protein: Adj wt of IBW Protein g/k.2-1.4 Protein Calculated 90-105 Fluid: ml fluid restriction 1000ml daily per MD order Nutritional Problem 1. Problem Problem altered nutrition related labs Etiology hx of ESRD Signs/Symptoms: BUN 60, Cr 7.0 Malnutrition Alert Is there a minimum of two criteria No selected? Query Text:Check all the applicable criteria. A minimum of two criteria are recommended for diagnosis of either severe or non-severe malnutrition. Malnutrition Related to Morbid Obesity Malnutrition related to morbid obesity No Intervention/Recommendation Comments 1. Continue with renal diet as ordered. Food preference updated. 2. Monitor PO intake, wt, labs and skin integrity 3. F/U as moderate risk in 3-5 days, 07/27-07/29 Expected Outcomes/Goals Expected Outcomes/Goals 1. PO intake to meet at least 75% of nutritional needs. 2. Wt stability, skin to remain intact, labs to approach WNL.
[2017-07-28 06:42] LABS: % EOSINOPHILS 3.7 % (0.0-5.0); % LYMPHOCYTES 32.3 % (20.0-50.0); % MONOCYTES 8.3 % (2.0-10.0); % NEUTROPHILS 54.7 % (40.0-80.0); BASOPHILE ABSOLUTE 0.1 Th/cumm (0-0.2); EOSINOPHILE ABSOLUTE 0.2 Th/cmm (0.1-0.4); HEMATOCRIT 25.7 % (41.0-60); HEMOGLOBIN 8.4 gm/dL (12-16); LYMPHOCYTE ABSOLUTE 2.2 Th/cmm (1.5-3.0); MEAN CELL VOLUME 88.7 fl (80-99); MEAN CORPUSCULAR HEMOGLOBIN 29.1 pg (27.0-31.0); MEAN CORPUSCULAR HGB CONC 32.8 pg (28.0-36.0); MEAN PLATELET VOLUME 7.7 fl; MONOCYTE ABSOLUTE 0.6 Th/cmm (0.3-1.0); NEUTROPHILE ABSOLUTE 3.6 Th/cmm (1.8-8.0); PLATELET COUNT 382 Th/cmm (150-400); RED CELL DISTRIBUTION WIDTH 18.8 % (11.5-20.0); WHITE BLOOD COUNT 6.7 Th/cmm (4.8-10.8)
[2017-07-28] MEDS: INSULIN ASPART SLIDING SCALE 100 UNITS/ML UNIT SUBQ SCH (06:46)
[2017-07-28 07:29] LABS: ANION GAP 12.9 (7.0-16.0); BUN - UREA NITROGEN 52 mg/dL (7-25); CARBON DIOXIDE 26.5 mEq/L (21.0-31.0); CHLORIDE 100 mEq/L (98-107); POTASSIUM SERUM 4.4 mEq/L (3.5-5.1); SODIUM SERUM 135 mEq/L (136-145)
[2017-07-28 07:34] LABS: CREATININE - SERUM 5.5 mg/dL (0.7-1.3)
[2017-07-28 09:11] LABS: GLUCOSE 108 mg/dL (70-105)
[2017-07-28] MEDS: NIFEdipine 30 mg ER Tab PO SCH (09:34)
[2017-07-28] MEDS: Aspirin 81mg Chewable Tab PO SCH (09:34)
[2017-07-28] MEDS: Ferrous Sulfate 325 MG TAB PO SCH (09:35)
[2017-07-28] MEDS: Levothyroxine 0.075 Mg Tab PO SCH (09:37)
--- NOTE | 2017-07-28 17:39 | Discharge Summary ---
DATE OF DISCHARGE: 07/28/2017 ADMITTING DIAGNOSES: Cardiac arrhythmia, bilateral knee degenerative joint disease, severe anemia, vasomotor nephropathy, severe malnutrition, accelerated hypertension, hypothyroidism. DISCHARGE DIAGNOSES: Severe anemia, sick sinus syndrome, status post DDD pacemaker placement, gastritis, end-stage renal disease, severe malnutrition, accelerated hypertension, hypothyroidism, obesity. MEDICATIONS: Reviewed and reconciled. VITAL SIGNS: 98.3, 79, 142/71 and 16. HISTORY OF PRESENT ILLNESS: A 76-year-old male presented in [facility] with acute complaint of cardiac arrhythmia as well as decreased blood pressure. The patient was admitted to the hospital. Cardiology was consulted and the EKG revealed the patient was in sick sinus syndrome. Dr. Desai was consulted. He placed a dual chamber pacemaker without complication. The patient tolerated the procedure well and his heart rate has been within normal sinus and he has not shown any signs of arrhythmia since the pacemaker was placed. Nephrology was consulted due to the history of end-stage renal disease, the patient had hemodialysis, tolerated everything well without complication. The patient was stable and he will be discharged back to [facility]. DISPOSITION: [facility]. Stable. Follow up with . PROCEDURES: Pacemaker placement. COMPLICATIONS: None. DIET: Cardiac, renal. JOB# [id number]
== END 2017-07-28 11:55 | DRG 242 ==
LOC: ER 12:38 → TELE 19:00 → MSI 07-27 16:00
PROVIDERS: ADMIT General Practice; ATTEND General Practice
PROC: 30233N1 Transfusion of Nonautologous Red Blood Cells into Peripheral Vein, Percutaneous Approach (ICD-10-PCS; principal; 2017-07-24)
PROC: 5A1D70Z Performance of Urinary Filtration, Intermittent, Less than 6 Hours Per Day (ICD-10-PCS; 2017-07-25)
PROC: 0JH606Z Insertion of Pacemaker, Dual Chamber into Chest Subcutaneous Tissue and Fascia, Open Approach (ICD-10-PCS; 2017-07-26)
PROC: 02H63JZ Insertion of Pacemaker Lead into Right Atrium, Percutaneous Approach (ICD-10-PCS; 2017-07-26)
PROC: 02HK3JZ Insertion of Pacemaker Lead into Right Ventricle, Percutaneous Approach (ICD-10-PCS; 2017-07-26)
PROC: 03180ZD Bypass Left Brachial Artery to Upper Arm Vein, Open Approach (ICD-10-PCS; 2017-07-27)
PROC: 5A1D70Z Performance of Urinary Filtration, Intermittent, Less than 6 Hours Per Day (ICD-10-PCS; 2017-07-27)
DX: I49.5 Sick sinus syndrome (principal); N18.6 End stage renal disease; E43 Unspecified severe protein-calorie malnutrition; N17.0 Acute kidney failure with tubular necrosis; I12.0 Hypertensive chronic kidney disease with stage 5 chronic kidney disease or end stage renal disease; E78.5 Hyperlipidemia, unspecified; E03.9 Hypothyroidism, unspecified; M10.9 Gout, unspecified; E11.22 Type 2 diabetes mellitus with diabetic chronic kidney disease; J44.9 Chronic obstructive pulmonary disease, unspecified; D63.1 Anemia in chronic kidney disease; N40.0 Benign prostatic hyperplasia without lower urinary tract symptoms; M17.0 Bilateral primary osteoarthritis of knee; K29.70 Gastritis, unspecified, without bleeding; E66.9 Obesity, unspecified; D50.9 Iron deficiency anemia, unspecified; Z79.4 Long term (current) use of insulin; Z68.39 Body mass index [BMI] 39.0-39.9, adult
CPT/HCPCS: 36415-UA; 71045-TC; 76000-TC; 80048-TC; 80053-TC; 82550-TC; 82948-90; 83605; 83735-TC; 84484-TC; 85025-TC; 85049-TC; 85379-TC; 85384-TC; 85610-TC; 85730-TC; 86850-TC; 86900-TC; 86901-TC; 86922-TC; 90937; 93005; J1644; J1815; J2001; J2704; J3010; J3480; J7030; J7040; P9016; V2790; X6494; Z7610